=== PATIENT | male | born 1940 | race Hispanic/Latino ===

== ENCOUNTER 2019-11-26 10:05 | Outpatient (CLI) | payer MEDICARE, SELFPAY ==
--- NOTE | ~2019-11-26 | US_ITS ---
EXAMINATION: US carotid duplex BI DATE: 11/26/2019 10:52 INDICATION: Bilateral carotid stenosis. TECHNIQUE: Grayscale, color Doppler, and pulsed Doppler images of the cervical carotid arteries were obtained. The degree of vessel stenosis is placed in one of the following categories: normal, <50%, 5 0-69%, >=70% but less than near-occlusion, near-occlusion, or total occlusion. Note that percent sten osis relative to normal distal artery lumen diameter is indirectly measured from velocity measurement s as described by Zack, et al. Radiology 2003; 229:340-346. COMPARISON: Ultrasound 01/27/2018 FINDINGS: RIGHT: The right common carotid artery (CCA) peak systolic velocity (PSV) is 123 cm/s. The right internal ca rotid artery (ICA) PSV is 167 cm/s. The right ICA end-diastolic velocity (EDV) is 33 cm/s. The right ICA/CCA PSV ratio is 1.4. Grayscale and color Doppler images yield an estimate of >=50% diameter redu ction from plaque in the ICA. There is antegrade flow in the right vertebral artery. LEFT: The left CCA PSV is 146 cm/s. The left ICA PSV is 188 cm/s. The left ICA EDV is 40 cm/s. The left ICA /CCA PSV ratio is 1.3. Grayscale and color Doppler images yield an estimate of >=50% diameter reducti on from plaque in the ICA. There is antegrade flow in the left vertebral artery. IMPRESSION: 1. 50-69% stenosis in the right internal carotid artery. 2. 50-69% stenosis in the left internal carotid artery. Reviewed, dictated and finalized at location A.
== END 2019-11-26 10:06 | disposition home or self-care (01) ==
PROVIDERS: PCP Internal Medicine; Visit Provider Internal Medicine Cardiovascular Disease
DX: I65.23 Occlusion and stenosis of bilateral carotid arteries (principal)
CPT/HCPCS: 93880

== ENCOUNTER 2020-04-09 14:11 | Inpatient (IN) | payer MEDICARE, SELFPAY ==
[2020-04-09] VITALS (18 sets, daily range): BP systolic 72–157; BP diastolic 48–71; PULSE 98–133; RESP 25–36; TEMP 36.6–38; O2SAT 92–100; BMI 24.8
--- NOTE | ~2020-04-09 | XR_ITS ---
EXAMINATION: XR abdomen NG/feed tube insert INDICATION: OG tube placement TECHNIQUE: Portable AP KUB-NG at 0040 hours COMPARISON: None available FINDINGS: A orogastric tube is in the stomach. The bowel gas pattern is nonspecific. There are diffus e airspace opacities of the visualized lung bases. IMPRESSION: 1. Orogastric tube in the stomach. Reviewed, dictated and finalized at location A.
--- NOTE | ~2020-04-09 | XR_ITS ---
EXAMINATION: XR chest 1V portable INDICATION: COVID 19 pneumonia TECHNIQUE: Portable AP chest at 0538 hours COMPARISON: 04/11/2020 FINDINGS: The endotracheal tube ends approximately 5.6 cm above the sheba. The nasogastric tube is i n the stomach. A right internal jugular central venous catheter ends with its tip in the superior lilly a cava. Diffuse interstitial and airspace opacities persist with slight interval improvement. Median sternotomy wires the heart size is normal. There is no pleural effusion or pneumothorax. IMPRESSION: 1. Diffuse lung disease with slight improvement, consistent with pneumonia and/or pulmonary edema and /or acute respiratory distress syndrome (ARDS). Reviewed, dictated and finalized at location A. IMPRESSION: 1. Diffuse lung disease with slight improvement, consistent with pneumonia and/ or pulmonary edema and/or acute respiratory distress syndrome (ARDS).
--- NOTE | ~2020-04-09 | XR_ITS ---
EXAMINATION: XR chest 1V portable INDICATION: COVID 19 pneumonia TECHNIQUE: Portable AP chest at 0543 hours COMPARISON: 04/14/2020 FINDINGS: The endotracheal tube ends approximately 4.7 cm above the sheba. The nasogastric tube is f ollowed as far as the stomach. Its tip is beyond the inferior margin of the radiograph. A right inter nal jugular central venous catheter ends with its tip in the proximal superior vena cava. Diffuse int erstitial and airspace opacities persist without significant change. There is no pleural effusion or pneumothorax. Median sternotomy wires and mediastinal surgical clips are seen, likely from prior [place]uis[place] nary artery bypass grafting. The heart size is normal. IMPRESSION: 1. Diffuse lung disease without significant change, consistent with pneumonia and/or pulmonary edema and/or acute respiratory distress syndrome (ARDS). Reviewed, dictated and finalized at location A. IMPRESSION: 1. Diffuse lung disease without significant change, consistent with pneumonia a nd/or pulmonary edema and/or acute respiratory distress syndrome (ARDS).
--- NOTE | ~2020-04-09 | XR_ITS ---
EXAMINATION: XR chest 1V portable INDICATION: COVID 19 pneumonia TECHNIQUE: Portable AP chest at 0514 hours COMPARISON: 04/12/2020 FINDINGS: The endotracheal tube ends approximately 4.8 cm above the sheba. The nasogastric tube is f ollowed as far as the stomach. Its tip is beyond the inferior margin of the radiograph. A right inter nal jugular catheter ends in the proximal superior vena cava. Diffuse interstitial and airspace opaci ties persist but have slightly improved, particularly in the mid and upper lung zones. There is no pl eural effusion or pneumothorax. The heart size is normal. Median sternotomy wires and mediastinal holden gical clips are seen, likely from prior coronary artery bypass grafting. IMPRESSION: 1. Diffuse lung disease with slight improvement, consistent with pneumonia and/or pulmonary edema and /or acute respiratory distress syndrome (ARDS). Reviewed, dictated and finalized at location A. IMPRESSION: 1. Diffuse lung disease with slight improvement, consistent with pneumonia and/ or pulmonary edema and/or acute respiratory distress syndrome (ARDS).
--- NOTE | ~2020-04-09 | XR_ITS ---
EXAMINATION: XR chest 1V portable INDICATION: COVID 19 PNEUMONIA TECHNIQUE: Portable AP chest at 0537 hours COMPARISON: 04/10/2020 FINDINGS: The endotracheal tube ends approximately 5.0 cm above the sheba. The nasogastric tube is i n the stomach. A right internal jugular central venous catheter ends with its tip in the proximal sup erior vena cava. Diffuse interstitial and airspace opacities persist with slight improvement in the u pper lung zones and perihilar regions. The cardiomediastinal silhouette is normal. Median sternotomy wires and mediastinal surgical clips are seen, likely from prior coronary artery bypass grafting. IMPRESSION: 1. Diffuse lung disease with slight improvement in the upper lung zones and perihilar regions, consis tent with pneumonia and/or pulmonary edema and/or acute respiratory distress syndrome (ARDS). Reviewed, dictated and finalized at location A. IMPRESSION: 1. Diffuse lung disease with slight improvement in the upper lung zones and per ihilar regions, consistent with pneumonia and/or pulmonary edema and/or acute r espiratory distress syndrome (ARDS).
--- NOTE | ~2020-04-09 | XR_ITS ---
XR chest 1V portable 04/09/2020 14:49 Indication: Shortness of breath. Covid Procedure: AP portable chest Comparison: 03/07/2018 Findings: Status post median sternotomy for CABG. Heart size normal. There is bilateral airspace dise ase peripherally, consistent with pneumonia. No pleural effusion or pneumothorax. Impression: 1: Interval development of extensive bilateral airspace disease, compatible with pneumonia. Reviewed, dictated and finalized at location A. Impression: 1: Interval development of extensive bilateral airspace disease, compatible wit h pneumonia.
--- NOTE | ~2020-04-09 | XR_ITS ---
EXAMINATION: XR chest 1V portable INDICATION: COVID 19 pneumonia TECHNIQUE: Portable AP chest at 0550 hours COMPARISON: 04/13/2020 FINDINGS: The endotracheal tube ends approximately 4.7 cm above the sheba. The nasogastric tube is f ollowed as far as the stomach. Its tip is beyond the inferior margin of the radiograph. A right inter nal jugular central venous catheter ends with its tip in the proximal superior vena cava. Diffuse int erstitial and airspace opacities persist without significant change. There is no pleural effusion or pneumothorax. The cardiomediastinal silhouette is stable. Median sternotomy wires and mediastinal holden gical clips are seen, likely from prior coronary artery bypass grafting. IMPRESSION: 1. Stable diffuse lung disease, consistent with pneumonia and/or pulmonary edema and/or acute respira tory distress syndrome (ARDS). Reviewed, dictated and finalized at location A. IMPRESSION: 1. Stable diffuse lung disease, consistent with pneumonia and/or pulmonary francis a and/or acute respiratory distress syndrome (ARDS).
--- NOTE | ~2020-04-09 | XR_ITS ---
EXAMINATION: XR chest ET placement INDICATION: Endotracheal tube insertion TECHNIQUE: Portable AP chest at 0039 hours COMPARISON: 04/09/2020 FINDINGS: There are diffuse interstitial and airspace opacities with interval worsening in the perihi lar regions, upper lung zones, and right lower lung zone. There is no pleural effusion or pneumothora x. The cardiomediastinal silhouette is stable. The endotracheal tube is 3.7 cm above the sheba. The nasogastric tube is followed as far as the stomach. Its tip is beyond the inferior margin of the radi ograph. A right internal jugular central venous catheter has been inserted which ends with its tip in the proximal superior vena cava. IMPRESSION: 1. Endotracheal and enteric tube insertions and right internal jugular central venous catheter insert ion, in adequate positions. 2. Diffuse lung disease with interval worsening in the upper lung zones, perihilar regions, and right lower lung zone, consistent with pneumonia and/or pulmonary edema and/or acute respiratory distress syndrome (ARDS). Reviewed, dictated and finalized at location A. IMPRESSION: 1. Endotracheal and enteric tube insertions and right internal jugular central venous catheter insertion, in adequate positions. 2. Diffuse lung disease with interval worsening in the upper lung zones, perihi lar regions, and right lower lung zone, consistent with pneumonia and/or pulmon andres edema and/or acute respiratory distress syndrome (ARDS).
[2020-04-09 14:56] LABS: Basophils Percent Auto 0.1 % (0.2-1.2); Immature Granulocyte Absolute 0.14 K/mm3 (0.00-0.031); Lymphocytes Absolute Auto 0.41 K/mm3 (0.9-3.2); Mean Corpuscular HGB Conc 32.3 g/dl (32-36); Mean Corpuscular Volume 89.9 fl (80-100); Mean Platelet Volume 12.8 fl (7.4-10.4); Monocytes Absolute Auto 0.9 K/mm3 (0.1-0.6); Monocytes Percent Auto 6.2 % (2.6-8.5); Neutrophils Absolute Auto 12.2 K/mm3 (1.3-6.7); Neutrophils Percent Auto 89.7 % (45.5-73.1); Nucleated Red Blood Cells Absolute Auto 0.2 K/mm3 (0.0-0.012); Nucleated Red Blood Cells Perc 1.5 % (0.0-0.2); Platelet Count Result 311 k/mm3 (150-375); Red Blood Count 2.17 M/mm3 (4.6-6.20); Red Cell Distribution Width 15.1 % (11.5-14.5); White Blood Count 13.6 K/mm3 (4.5-10.0)
[2020-04-09] MEDS: SODIUM CHLORIDE 0.9% IV 1,000 ML 999 ML IV CONT (14:57)
[2020-04-09 15:02] LABS: Hematocrit 19.5 % (42.0-52.0); Hemoglobin 6.3 g/dL (14.0-18.0)
[2020-04-09 15:09] LABS: INR 1.1
[2020-04-09 15:12] LABS: D Dimer 0.64 ug/mL (<0.48)
[2020-04-09 15:16] LABS: Lactic Acid Reflex 8.8 mmol/L (0.7-2.1)
[2020-04-09 15:21] LABS: Alanine Aminotransferase 42 U/L (4-50); Albumin Level 3.4 g/dL (3.5-5.1); Alkaline Phosphatase 97 U/L (38-126); Anion Gap 18 mmol/L (8-16); Aspartate Amino Transferase 56 U/L (17-59); Bilirubin,Total 0.6 mg/dL (0.2-1.3); Blood Urea Nitrogen 18 mg/dL (9-20); Calcium 7.8 mg/dL (8.4-10.2); Carbon Dioxide 16 mmol/L (22-30); Chloride 92 mmol/L (98-107); Estimated CRCL calculation 40 ml/min; Estimated Glomerular Filt Rate 58; Glucose 293 mg/dL (75-110); Lactate Dehydrogenase 700 U/L (313-618); Potassium 4.9 mmol/L (3.4-5.0); Sodium 126 mmol/L (137-145)
[2020-04-09 15:22] LABS: NT Pro B Type Natriuretic Pept 8460 PG/ML (5-100)
[2020-04-09] MEDS: DEXAMETHASONE SOD PHOS INJ 4 MG/ML VIAL 8 MG (15:26)
[2020-04-09 15:33] LABS: CRP 16.6 mg/dL (<1.0)
--- NOTE | 2020-04-09 15:47 | PC.NURSE ---
fluids reduced to 100ml/hr per verbal order
[2020-04-09] MEDS: PANTOPRAZOLE SODIUM IV 40 MG VIAL IV PUSH ×2 (15:50→20:30)
--- NOTE | 2020-04-09 16:24 | ED.GENADULT ---
HPI - General Adult General Chief complaint: Weakness Stated complaint: COVID + PALE,WEAK Time Seen by Provider: 04/09/20 14:32 Source: patient, family and custom furrier (daughter) Mode of arrival: ambulatory Limitations: language barrier History of Present Illness HPI narrative: 79-year-old with a history of hypertension diabetes was brought in by daughter with complaints of marked weakness for past few days. Patient's daughter mentions that he was tested positive for COVID 12 days ago but for the past few days patient has not been eating or drinking and this morning he was found to be extremely weak and he was trembling at his legs. Patient however denies any fever or chills has occasional cough denies any shortness of breath upon arrival complaints of upper abdominal pain. He denies any chest pain. Onset (ago): week(s) (1) Location: abdomen Severity: moderate Associated symptoms: chest pain, cough and shortness of breath Related Data Home Medications Medication Instructions Recorded Confirmed allopurinol 100 mg tablet 100 mg PO DAILY 06/15/19 06/16/19 nitroglycerin 0.4 mg sublingual 0.4 mg SUBLINGUAL Q5M PRN 06/15/19 06/16/19 tablet blood sugar diagnostic #10 each 09/01/19 colchicine 0.6 mg tablet 0.6 mg PO BID 09/01/19 lancets #50 each 09/01/19 pantoprazole 40 mg tablet,delayed 40 mg PO QAM 09/01/19 release ramipril 10 mg capsule 10 mg PO DAILY 09/01/19 Allergies Allergy/AdvReac Type Severity Reaction Status Date / Time No Known Allergies Allergy Verified 04/09/20 14:56 Review of Systems Review of Systems: All systems reviewed & are unremarkable except as noted in HPI and below Constitutional: Constitutional: Reports no additional constitutional complaints Eyes: Eyes: Reports no additional eye complaints ENT: Reports as per HPI Cardiovascular: Cardiovascular: Reports as per HPI Respiratory: Respiratory: Reports no additional respiratory complaints Gastrointestinal: Gastrointestinal: Reports abdominal pain Genitourinary: Genitourinary: Reports as per HPI Musculoskeletal: Musculoskeletal: Reports no additional musculoskeletal complaints Integumentary/Breasts: Skin/Breast: Reports system reviewed and no additional complaints, except as docu PMFSH Past Medical History Medical History Coronary atherosclerosis of [place] coronary artery Social History Social History Smoking status: Former smoker Smoking end date: 08/11/14 Alcohol intake: never Gender identity (if verbalized by the patient): Male Exam Narrative: Exam Narrative: GENERAL: Well-appearing, well-nourished, anxious in no distress . HEAD: Normocephalic, atraumatic. EYES: PERRLA and EOMI. ENT: Nares clear, no rhinorrhea or epistaxis. Mucous membranes moist. NECK: Supple. CHEST: Clear to auscultation. No respiratory distress. HEART: Tachycardic . No murmur heard. ABDOMEN: Soft, nontender, nondistended, normal active bowel sounds. EXTREMITIES: Normal range of motion. No edema. SKIN: Warm, dry, no rash. NEURO: No focal deficits. Alert and oriented x3. PSYCH: Normal mood and affect. GI: Other: Heme-negative stool Course Course Emergency Course: With a recent history of COVID I like to do CBC chemistry chest x-ray start him on IV fluids gently. Vital Signs Vital signs: Vital Signs Temperature 38.0 C H 04/09/20 14:25 Pulse Rate 129 H 04/09/20 14:25 Respiratory Rate 35 H 04/09/20 14:25 Blood Pressure 157/55 H 04/09/20 14:25 Pulse Oximetry 92 04/09/20 14:25 Temperature 37.7 C H 04/09/20 15:50 Pulse Rate 133 H 04/09/20 15:47 Respiratory Rate 35 H 04/09/20 14:25 Blood Pressure 114/71 04/09/20 15:47 Pulse Oximetry 92 04/09/20 15:47 Medical Decision Making MDM Narrative Medical decision making narrative: With a given history of [place] COVID the chest x-ray was consistent with
--- NOTE | 2020-04-09 17:00 | ECG_ITS ---
Measurements Intervals [place] Rate: 113 P: 27 [place]: 165 QRS: -16 QRSD: 91 T: 102 QT: 342 QTc: 471 Interpretive Statements SINUS TACHYCARDIA ST-T WAVE ABNORMALITY IN ANTEROLAT/HIGH LAT LEADS- CONSIDER ISCHEMIA ABNORMAL ECG Electronically Signed On 04-10-2020 7:08:41 CDT by Corky Arevalo D.O.
[2020-04-09] MEDS: FUROSEMIDE INJ 40 MG/4 ML VIAL IV PUSH (17:29)
[2020-04-09 17:54] LABS: Reflex Lactic Acid Yes or No Add Lactic
--- NOTE | 2020-04-09 18:15 | ADMGEN ---
This patient, Luis Rose, was admitted to Intensive Care Unit-3. Patient/family oriented to hospital policies and general routines including ID bracelet, bed and alarms, visiting hours, pain management, procedures, bathroom and other care routines, personal items, smoking policy, room service/diet, and visiting hours. Valuables list has been completed. Information on how to activate the Rapid Response Team has been discussed. Patient/Family are encouraged to report perceived risks to care and to ask questions if they do not understand what they are told or what they should do.
[2020-04-09 18:56] LABS: Lactic Acid 5.7 mmol/L (0.7-2.1)
--- NOTE | 2020-04-09 19:31 | PM.IMHP ---
H&P: HPI History of Present Illness Date/Time: 04/09/20 19:31 Chief complaint: Pneumonia, GI bleed, Anemia Narrative: This is an 79 year old diabetic male with known history of CAD+ s/p CABG, HTN, and previous GI bleed presented to the hospital with a complaint of increased fatigue and generalized weakness over several days. The patient also complains of several days of increased shortness of breath and nonproductive coughing. He apparently tested positive for COVID-19 twelve days ago. His daughter had reported decreased PO intake today. The patient denies any chest pain, palpitations, abdominal pain, dysuria, hematuria, diarrhea, black stools or rectal bleeding. The patient was found to be in acute respiratory failure and severely septic in the ER tonight with a fever, tachycardia, tachypnea, WBC of 13,600 and an elevated lactic acid level of 5.7. His H/H came back at 6.3/19.5. The patient denies any anticoagulant use. He is currently receiving a pRBC transfusion. He was also started on AIRVO high flow oxygen at 60L/min w/ FiO2 of 60%. [facility] has been consulted. The patient was treated with 1 liter of NS IV bolus in the ER, given Lasix 40 mg IV, and IV antibiotics. Dexamethasone 8 mg IV was Review of Systems Review of Systems: All systems reviewed & are unremarkable except as noted in HPI and below PMFSH Past Medical History Medical History CAD (coronary artery disease) Coronary atherosclerosis of [place] coronary artery Diabetes mellitus HTN (hypertension) with goal to be determined Hyperlipidemia Iron deficiency anemia Surgical History Surgical History Hx of CABG Social History Social History Smoking status: Former smoker Smoking end date: 08/11/14 Alcohol intake: never Substance use: never Gender identity (if verbalized by the patient): Male Spiritual care concerns: No Meds Home Medications and Allergies Home Medications Medication Instructions Recorded Confirmed Type allopurinol 100 mg tablet 100 mg PO DAILY 06/15/19 04/09/20 History hydralazine 50 mg tablet 50 mg PO TID #270 tablet 06/17/19 04/09/20 Rx metformin 500 mg tablet 500 mg PO BID #180 tablet 06/17/19 04/09/20 Rx metoprolol succinate 50 mg 50 mg PO DAILY #90 tablet 06/17/19 04/09/20 Rx tablet,extended release 24 hr blood sugar diagnostic #10 each 09/01/19 04/09/20 History colchicine 0.6 mg tablet 0.6 mg PO BID 09/01/19 04/09/20 History lancets #50 each 09/01/19 04/09/20 History glimepiride 1 mg tablet 1 mg PO QAM #90 tablet 10/05/19 04/09/20 Rx atorvastatin 20 mg tablet 20 mg PO DAILY #90 tablet 02/23/20 04/09/20 Rx furosemide 20 mg tablet 20 mg PO QAM #90 tablet 02/23/20 04/09/20 Rx Allergies Allergy/AdvReac Type Severity Reaction Status Date / Time No Known Allergies Allergy Verified 04/09/20 14:56 Vital Signs Vital Signs - 24 hr 04/09/20 14:25 04/09/20 15:47 04/09/20 15:50 Temperature 38.0 C H 37.7 C H Pulse Rate 129 H 133 H Respiratory Rate 35 H Blood Pressure 157/55 H 114/71 Pulse Oximetry 92 92 04/09/20 17:08 04/09/20 18:07 04/09/20 18:50 Temperature Pulse Rate 114 H 126 H 105 H Respiratory Rate 36 H 32 H 30 H Blood Pressure 109/50 L 118/64 72/59 L Pulse Oximetry 100 94 100 04/09/20 18:55 04/09/20 19:14 Temperature 37.7 C H 36.7 C Pulse Rate 103 H 119 H Respiratory Rate 28 H 30 H Blood Pressure 79/48 L 119/53 L Pulse Oximetry 100 98 Exam Const: General: cooperative, no acute distress, alert, awake, ill appearing, tired appearing, uncomfortable and other (Diaphoretic++ ) Nutritional Appearance: well nourished Orientation/consciousness: patient oriented x3 HENMT: Head: normal to inspection General nose exam: Normal external nose present Face and sinus: normal facial exam Mouth: Yes oropharynx normal and Yes othe
[2020-04-09 20:08] LABS: Alveolar/Arterial O2 Gradient 321.2 mmHg; Fractional Inspired Oxygen 60 %; Oxygen Content ABG 9.9 %vol (16.0-22.0); Oxygen Saturation ABG 95.7 % (95.0-100.0); Oxyhemoglobin 92.6 % THb (90.0-100.0); PCO2 ABG 25.6 mmHg (35.0-45.0); PO2 ABG 78.4 mmHg (80.0-100.0); PO2 FiO2 Ratio Arterial Blood 1.31 %; pH ABG 7.386 (7.350-7.450)
[2020-04-09 20:10] LABS: Modified Allen's Test Pass; Site Drawn RIGHT RADIAL; Total Hemoglobin 7.5 g/dL (12.0-18.0)
[2020-04-09 20:11] LABS: Device HIGH FLOW THERAPY
[2020-04-09 21:09] LABS: Beta-Hydroxybutyrate/Acetoacetate 0.35 mmol/L (0.02-0.27)
[2020-04-09] MEDS: INSULIN ASPART (*BKC) 100 UNITS/ML SUB-Q (23:17)
--- NOTE | 2020-04-09 23:40 | PC.NURSE ---
Dr. Villegas notified of patient increase work of breathing after BM. 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 Patient currently on 60L 93% with 100%NRB. Patient is agreeable of intubation and central line placement. Dr. Villegas at bedside evaluating patient.
[2020-04-10] VITALS (55 sets, daily range): BP systolic 70–163; BP diastolic 46–77; PULSE 12–122; RESP 14–27; TEMP 35.8–36.9; O2SAT 92–100; BMI 25.9
[2020-04-10] MEDS: RAPID SEQUENCE INTUBATION KIT 1 EACH
[2020-04-10] MEDS: FUROSEMIDE INJ 40 MG/4 ML VIAL IV PUSH (00:28)
[2020-04-10 00:33] LABS: Glucose Point of Care 326 (65-105)
--- NOTE | 2020-04-10 00:47 | WPDPROCEDUR ---
Procedures Intubation Intubation Date: 04/10/20 Intubation Time: 00:09 A pre-procedural Time-Out was completed immediately before starting the procedure and confirmed: Patient Identification, Site, Procedure, Patient Position and the Availability of Requisite Equipment: Yes Sedative: etomidate Mg given: 15 Paralytic: rocuronium Mg given: 30 Laryngoscope: fiber optic video scope ET tube size: 8 Tube secured depth (cm): 26 Tube secured location: teeth Tube placement confirmation: visualized tube passing through cords, equal breath sounds bilaterally, no breath sounds over epigastrium and confirmation by capnometry Patient tolerated procedure: well Intubation complications: none Additional comments: Date of service was 04/10/2020 at 00:10 hrs.
--- NOTE | 2020-04-10 00:48 | P.PCNBED_ITS ---
Procedures Central Line Placement Right IJ: Central Line Date: 04/10/20 Central Line Time: 00:25 Discussed w/ the patient/family/POA,the placement of a central venous catheter, including its clinical necessity/indication & associated potential risks, benifits and alternatives.: Yes Time Out Performed: Yes Patient Position: supine Patient placed on monitor/pulse ox: Yes Provider Prep: mask, sterile gown, sterile gloves, Max. sterile barrier precautions, cap and hand hygiene with conventional soap/water or alcohol based hand rub Central line prep: Povidone-Iodine 1% Central line lumen inserted: triple Amharic: 7 Length (cm): 17 Depth of Insertion (cm): 16 Post procedure: sutured in place, good blood return, all ports aspirated, flushed, capped, tegaderm, hemostatic disc, antimicrobial disc and aseptic technique maintained throughout procedure Post procedure x-ray: tip of catheter in good position and no pneumothorax seen Patient tolerated procedure: well Complications: none Additional comments: Date of service was 04/10/2020 at 00:25 hrs.
[2020-04-10 01:03] LABS: Hematocrit 30.1 % (42.0-52.0); Hemoglobin 10.2 g/dL (14.0-18.0)
[2020-04-10 01:35] LABS: Alveolar/Arterial O2 Gradient 533.6 mmHg; Base Excess ABG -5.9 mEq/l (+/-2.0); Carboxyhemoglobin 0.3 % THb (0-2.0); Fractional Inspired Oxygen 100 %; HCO3 ABG 22.1 mEq/l (22.0-26.0); Methemoglobin ABG 0.5 %THb (0-1.5); Oxygen Content ABG 15.9 %vol (16.0-22.0); Oxygen Saturation ABG 97.8 % (95.0-100.0); Oxyhemoglobin 96.2 % THb (90.0-100.0); PCO2 ABG 54.5 mmHg (35.0-45.0); PO2 ABG 124.9 mmHg (80.0-100.0); PO2 FiO2 Ratio Arterial Blood 1.25 %; Total Hemoglobin 11.6 g/dL (12.0-18.0)
[2020-04-10 01:37] LABS: Device VENTILATOR; Modified Allen's Test Pass; Site Drawn RIGHT RADIAL; pH ABG 7.225 (7.350-7.450)
[2020-04-10 01:38] LABS: Arterial Blood Gas PEEP 7 cmH2O; Arterial Blood Gas Pressure Support 0 cmH2O; Arterial Blood Gas Tidal Volume 450 ml; Arterial Blood Gas Vent Mode CMV; Arterial Blood Gas Ventilator rate 14 /MIN
--- NOTE | 2020-04-10 02:30 | PC.NURSE ---
Dr. Villegas notified of low blood pressure. Order for levophed given. Check bmp and lactic acid.
[2020-04-10 02:37] LABS: Lactic Acid Reflex 1.6 mmol/L (0.7-2.1)
[2020-04-10 02:38] LABS: Anion Gap 7 mmol/L (8-16); Blood Urea Nitrogen 27 mg/dL (9-20); Carbon Dioxide 25 mmol/L (22-30); Chloride 94 mmol/L (98-107); Estimated CRCL calculation 32 ml/min; Estimated Glomerular Filt Rate 45; Glucose 349 mg/dL (75-110); Potassium 4.7 mmol/L (3.4-5.0); Sodium 126 mmol/L (137-145)
[2020-04-10] MEDS: NOREPINEPHRINE 8 MG/D5W 250 ML 8 MG/250 ML BAG 9.4 MG IV CONT ×2 (02:41→20:07)
--- NOTE | 2020-04-10 02:45 | PC.NURSE ---
Dr. Villegas notified of lab results. Get ABG at 0330. Call with results. Give 4 units novolog for elevated glucose.
[2020-04-10] MEDS: INSULIN ASPART (*BKC) 100 UNITS/ML SUB-Q ×4 (02:56→17:35)
[2020-04-10 03:57] LABS: Base Excess ABG -4.1 mEq/l (+/-2.0); Carboxyhemoglobin 0.2 % THb (0-2.0); Fractional Inspired Oxygen 50 %; HCO3 ABG 21.1 mEq/l (22.0-26.0); Methemoglobin ABG 0.2 %THb (0-1.5); Oxygen Content ABG 14.3 %vol (16.0-22.0); Oxygen Saturation ABG 95.5 % (95.0-100.0); Oxyhemoglobin 93.8 % THb (90.0-100.0); PCO2 ABG 38.8 mmHg (35.0-45.0); PO2 ABG 80.9 mmHg (80.0-100.0); PO2 FiO2 Ratio Arterial Blood 1.62 %; Reduced Hemoglobin 5.8 %THb (0-5.0); Total Hemoglobin 10.8 g/dL (12.0-18.0); pH ABG 7.353 (7.350-7.450)
[2020-04-10 03:58] LABS: Arterial Blood Gas Vent Mode CMV; Arterial Blood Gas Ventilator rate 20 /MIN; Device VENTILATOR; Modified Allen's Test Pass; Site Drawn RIGHT RADIAL
[2020-04-10 03:59] LABS: Arterial Blood Gas PEEP 7 cmH2O; Arterial Blood Gas Pressure Support 0 cmH2O; Arterial Blood Gas Tidal Volume 450 ml
[2020-04-10 05:13] LABS: Basophils Percent Auto 0.1 % (0.2-1.2); Hematocrit 29.1 % (42.0-52.0); Hemoglobin 9.8 g/dL (14.0-18.0); Immature Granulocyte Absolute 0.26 K/mm3 (0.00-0.031); Immature Granulocyte Percent A 1.6 % (0-0.5); Lymphocytes Absolute Auto 0.43 K/mm3 (0.9-3.2); Lymphocytes Percent Auto 2.7 % (18.3-44.2); Mean Corpuscular HGB Conc 33.7 g/dl (32-36); Mean Corpuscular Hemoglobin 29.1 pg (26-34); Mean Corpuscular Volume 86.4 fl (80-100); Mean Platelet Volume 12.3 fl (7.4-10.4); Monocytes Absolute Auto 0.9 K/mm3 (0.1-0.6); Monocytes Percent Auto 5.6 % (2.6-8.5); Neutrophils Absolute Auto 14.4 K/mm3 (1.3-6.7); Nucleated Red Blood Cells Absolute Auto 0.2 K/mm3 (0.0-0.012); Nucleated Red Blood Cells Perc 1.2 % (0.0-0.2); Platelet Count Result 308 k/mm3 (150-375); Red Blood Count 3.37 M/mm3 (4.6-6.20); Red Cell Distribution Width 14.4 % (11.5-14.5)
[2020-04-10 05:28] LABS: Anion Gap 7 mmol/L (8-16); Blood Urea Nitrogen 29 mg/dL (9-20); Calcium 7.2 mg/dL (8.4-10.2); Carbon Dioxide 24 mmol/L (22-30); Chloride 94 mmol/L (98-107); Estimated CRCL calculation 30 ml/min; Estimated Glomerular Filt Rate 42; Glucose 347 mg/dL (75-110); Potassium 4.6 mmol/L (3.4-5.0); Sodium 125 mmol/L (137-145)
[2020-04-10] MEDS: CENTRAL LINE FLUSH 10 ML IV PUSH ×3 (05:36→20:10)
[2020-04-10] MEDS: PANTOPRAZOLE SODIUM IV 40 MG VIAL IV PUSH ×2 (08:02→17:34)
[2020-04-10] MEDS: INSULIN DETEMIR 100 UNITS/ML SUB-Q ×2 (10:49→20:09)
[2020-04-10 12:07] LABS: Glucose Point of Care 321 (65-105)
--- NOTE | 2020-04-10 14:07 | WPDCNINT ---
Assessment and Plan Assessment and plan (1) Acute respiratory failure: Qualifiers: Respiratory failure complication: unspecified whether with hypoxia or hypercapnia Qualified Code(s): J96.00 - Acute respiratory failure, unspecified whether with hypoxia or hypercapnia Code(s): J96.00 - Acute respiratory failure, unspecified whether with hypoxia or hypercapnia Status: Acute Assessment and Plan: patient presented with dyspnea, positive COVID-19, bilateral diffuse infiltrates on the chest x-ray - intubated on 04/09/2020 - patient on low tidal volume strategy, peep of 7, 45% FiO2 on CMV mode of ventilation - continue bronchodilators, - given his fevers, elevated WBC count, hypotension started patient on cefepime and azithromycin - continue fentanyl Versed infusion for sedation, daily sedation vacation (2) COVID-19: Code(s): U07.1 - COVID-19 Status: Acute Assessment and Plan: patient positive for COVID-19, 12 days prior to admission - will swab patient for SARS-CoV-2 PCR - started patient on dexamethasone - he is out of the window for Remdesivir - patient may benefit from convalescent plasma - continue droplet, airborne, contact isolation (3) Septic shock: Code(s): A41.9 - Sepsis, unspecified organism; R65.21 - Severe sepsis with septic shock Status: Acute Assessment and Plan: patient with septic shock, hypotensive, - received adequate IV fluids - started on Levophed, maintain mean arterial pressures greater than 65 mmHg - monitor urine output - lactic acid was 5.7 at admission, 1.6 this morning (4) Anemia: Qualifiers: Anemia type: due to chronic kidney disease Chronic kidney disease stage: unspecified stage Qualified Code(s): N18.9 - Chronic kidney disease, unspecified; D63.1 - Anemia in chronic kidney disease Code(s): D64.9 - Anemia, unspecified Status: Acute Assessment and Plan: patient presented with hemoglobin of 6.3 on admission - received 2 units of packed RBCs, repeat hemoglobin stable - history of GI bleed, stool for occult blood been ordered - continue PPI IV q.12 hours - GI has been consulted and await evaluation and recommendations (5) Diabetes mellitus: Qualifiers: Diabetes mellitus type: type 2 Diabetes mellitus [facility] insulin use: without termite helper use Diabetes mellitus complication status: without complication Qualified Code(s): E11.9 - Type 2 diabetes mellitus without complications Code(s): E11.9 - Type 2 diabetes mellitus without complications Status: Chronic Assessment and Plan: patient hyperglycemic, started on Accu-Cheks and sliding scale insulin - also added Levemir - continue monitor blood sugars closely (6) DVT prophylaxis: Code(s): Z29.9 - Encounter for prophylactic measures, unspecified Status: Acute Assessment and Plan: SCDs, no chemoprophylaxis given severe anemia and possible GI bleed Additional Plan will discuss with family code status: Full code critical care time spent: 47 minutes Due to a high probability of clinically significant, life threatening deterioration, the patient required my highest level of preparedness to intervene emergently and I personally spent this critical care time directly and personally managing the patient. This critical care time included obtaining a history; examining the patient; pulse oximetry; ordering and review of studies; arranging urgent treatment with development of a management plan; evaluation of patient's response to treatment; frequent reassessment; and discussions with other providers. It was exclusive of separately billable procedures and treating other patients and teaching time. Please see Assessment and Plan section and the rest of the note for further information on patient assessment and treatment Supervisor [employer] Consult Note Consult date: 04/10/20 Time Seen: 06:56 Reason for consul
--- NOTE | 2020-04-10 16:25 | WPDGICN ---
Assessment and Plan Assessment and plan (1) COVID-19: Code(s): U07.1 - COVID-19 Status: Acute (2) Anemia: Qualifiers: Anemia type: due to chronic kidney disease Chronic kidney disease stage: unspecified stage Qualified Code(s): N18.9 - Chronic kidney disease, unspecified; D63.1 - Anemia in chronic kidney disease Code(s): D64.9 - Anemia, unspecified Status: Acute Assessment and Plan: Patient profile with profound anemia with hemoglobin 6.3 on presentation to the emergency room. This is improved significantly with transfusion currently hemoglobin 9.8. Dark Hemoccult-positive stools described emergency room suggestive of upper GI blood loss. Plan is to keep patient on proton pump inhibitor therapy given his adequate hemoglobin after transfusion in no evidence for continued ongoing bleeding will defer invasive testing such as EGD and treat empirically for ulcer disease. Given his positive COVID status the risk of transmission of virus is felt to be great. Will proceed with invasive testing only if he active bleeding decline hemoglobin her noted. Will follow with you during this hospital stay. (3) GI bleeding: Code(s): K92.2 - Gastrointestinal hemorrhage, unspecified Status: Acute (4) Acute respiratory failure: Qualifiers: Respiratory failure complication: unspecified whether with hypoxia or hypercapnia Qualified Code(s): J96.00 - Acute respiratory failure, unspecified whether with hypoxia or hypercapnia Code(s): J96.00 - Acute respiratory failure, unspecified whether with hypoxia or hypercapnia Status: Acute GI Consult Note Consult date/time: 04/10/20 16:25 HPI: Luis Samuel is a 79 year old male I am asked to see for GI bleeding. Patient known to have COVID pneumonia 12 days ago. Has an underlying history of coronary artery disease, diabetes, hypertension, hyperlipidemia. Underlying iron deficiency anemia. Patient has had fatigue and generalized weakness for several days. Because of decreased oral intake he was sent to the emergency room. In the emergency room was felt to be septic with tachycardia fever elevated WBC. His hemoglobin was noted to be lower. Stool Hemoccult was reported to be positive. Dark stools were described. Patient is unable to give any additional history he was intubated. Hemoglobin is re- improved to approximately 9.8 after transfusion is remains stable. Brown stool is reported by nursing staff today. Review of Systems Review of Systems: ROS unobtainable: Yes unobtainable due to endotracheal tube PMFSH Past Medical History Medical History CAD (coronary artery disease) Coronary atherosclerosis of [place] coronary artery Diabetes mellitus HTN (hypertension) with goal to be determined Hyperlipidemia Iron deficiency anemia Surgical History Surgical History Hx of CABG Social History Social History Smoking status: Former smoker Smoking end date: 08/11/14 Alcohol intake: never Substance use: never Gender identity (if verbalized by the patient): Male Spiritual care concerns: No Meds Home Medications and Allergies Home Medications Medication Instructions Recorded Confirmed Type allopurinol 100 mg tablet 100 mg PO DAILY 06/15/19 04/09/20 History hydralazine 50 mg tablet 50 mg PO TID #270 tablet 06/17/19 04/09/20 Rx metformin 500 mg tablet 500 mg PO BID #180 tablet 06/17/19 04/09/20 Rx metoprolol succinate 50 mg 50 mg PO DAILY #90 tablet 06/17/19 04/09/20 Rx tablet,extended release 24 hr blood sugar diagnostic #10 each 09/01/19 04/09/20 History colchicine 0.6 mg tablet 0.6 mg PO BID 09/01/19 04/09/20 History lancets #50 each 09/01/19 04/09/20 History glimepiride 1 mg tablet 1 mg PO QAM #90 tablet 10/05/19 04/09/20 Rx atorvastatin 20 mg tabl
[2020-04-10 17:55] LABS: Glucose Point of Care 282 (65-105)
[2020-04-10 20:28] LABS: SARS-CoV-2 RNA PCR Positive
[2020-04-11] VITALS (46 sets, daily range): BP systolic 100–131; BP diastolic 47–76; PULSE 59–97; RESP 16–20; TEMP 36.2–36.8; O2SAT 94–100
--- NOTE | 2020-04-11 | ECHO_ITS ---
Patient Info Name: Luis Samuel Age: 79 years : 1940 Gender: Male Ht: 65 in Wt: 162 lbs BSA: 1.85 m2 HR: 86 bpm BP: 129 / 69 mmHg Heart Rhythm: Sinus Rhythm Technical Quality: Good Exam Date: 04/11/2020 2:07 PM Exam Location: [facility] Pulmonary Patient Status: Inpatient Admit Date: 04/09/2020 Staff Ordering Physician: Ever Uribe MD Radio Tower Technician: Zackery Li RDCS Attending Provider: Perry Boyce MD Exam Type: CA echo doppler color flow Study Info Indications 486.0 - Pneumonia Complete two-dimensional, color flow and Doppler transthoracic echocardiogram is performed. Strain analysis performed. History/Risk Factors Elevated trops; Covid 19 positive, CAD s/p CABG, HTN, SOB, Acute respiratory failure, CKD. Summary 1. Complete two-dimensional, color flow and Doppler transthoracic echocardiogram is performed. 2. Left ventricular chamber dimension is mildly enlarged. 3. Left ventricular systolic function is normal, estimated at 55-60%. 4. There is moderately increased left ventricular wall thickness. 5. The left ventricular diastolic function is grade II diastolic dysfunction. 6. Global longitudinal strain is abnormal at -11 %. 7. Left atrial chamber dimension is moderately enlarged. 8. There is moderate aortic valve stenosis with a peak velocity of 228 cm/s, mean gradient of 11 mmHg, and aortic valve area of 1.1 cm2. 9. There is severe aortic valve calcification. 10. The mitral valve has calcified leaflets and calcified annulus. 11. There is moderate to severe mitral valve regurgitation. 12. There is mild tricuspid valve regurgitation. 13. Moderate pulmonary hypertension, estimated pulmonary arterial systolic pressure is 50 mmHg. 14. There is mild pulmonic regurgitation. Left Ventricle Left ventricular chamber dimension is mildly enlarged. Left ventricular systolic function is normal, estimated at 55-60%. There is moderately increased left ventricular wall thickness. The left ventricular diastolic function is grade II diastolic dysfunction. Global longitudinal strain is abnormal at -11 %. Right Ventricle Right ventricular chamber dimension is normal. Right ventricular systolic function is normal. Left Atria Left atrial chamber dimension is moderately enlarged. Right Atria Right atrial chamber dimension is normal. Atrial Septum Intact interatrial septum visualized by color flow imaging. Aortic Valve The aortic valve is trileaflet. There is moderate aortic valve stenosis with a peak velocity of 228 cm/s, mean gradient of 11 mmHg, and aortic valve area of 1.1 cm2. There is trace aortic valve regurgitation. There is severe aortic valve calcification. Pulmonic Valve The pulmonic valve is normal. There is no pulmonic valve stenosis. There is mild pulmonic regurgitation. Mitral Valve The mitral valve has calcified leaflets and calcified annulus. There is no mitral valve stenosis. There is moderate to severe mitral valve regurgitation. Tricuspid Valve The tricuspid valve leaflets are normal. There is no significant tricuspid valve stenosis. There is mild tricuspid valve regurgitation. Moderate pulmonary hypertension, estimated pulmonary arterial systolic pressure is 50 mmHg. Pericardium/Pleural The pericardium appears normal. There is no pericardial effusion. Inferior Vena Cava Normal inferior vena cava with <50% collapse upon inspiration consistent with elevated right atrial pressure, 10 mmHg.
[2020-04-11] MEDS: INSULIN ASPART (*BKC) 100 UNITS/ML SUB-Q ×4 (00:06→23:46)
[2020-04-11 00:11] LABS: Glucose Point of Care 285 (65-105)
[2020-04-11 04:24] LABS: Hematocrit 24.5 % (42.0-52.0); Hemoglobin 8.4 g/dL (14.0-18.0); Mean Corpuscular HGB Conc 34.3 g/dl (32-36); Mean Corpuscular Hemoglobin 29.5 pg (26-34); Mean Platelet Volume 11.7 fl (7.4-10.4); Platelet Count Result 266 k/mm3 (150-375); Red Blood Count 2.85 M/mm3 (4.6-6.20); Red Cell Distribution Width 14.4 % (11.5-14.5); White Blood Count 15.9 K/mm3 (4.5-10.0)
[2020-04-11 04:32] LABS: Lactic Acid Reflex 1.3 mmol/L (0.7-2.1)
[2020-04-11 04:36] LABS: Alveolar/Arterial O2 Gradient 102.9 mmHg; Base Excess ABG -3.5 mEq/l (+/-2.0); Carboxyhemoglobin 0.2 % THb (0-2.0); Device VENTILATOR; Fractional Inspired Oxygen 30 %; HCO3 ABG 21.7 mEq/l (22.0-26.0); Methemoglobin ABG 0.2 %THb (0-1.5); Modified Allen's Test Unable to perform; Oxygen Content ABG 12.3 %vol (16.0-22.0); Oxygen Saturation ABG 91.9 % (95.0-100.0); Oxyhemoglobin 88.6 % THb (90.0-100.0); PCO2 ABG 39.5 mmHg (35.0-45.0); PO2 ABG 64.6 mmHg (80.0-100.0); PO2 FiO2 Ratio Arterial Blood 2.15 %; Site Drawn RIGHT RADIAL; Total Hemoglobin 9.8 g/dL (12.0-18.0); pH ABG 7.357 (7.350-7.450)
[2020-04-11 04:37] LABS: Arterial Blood Gas PEEP 7 cmH2O; Arterial Blood Gas Tidal Volume 450 ml; Arterial Blood Gas Vent Mode CMV; Arterial Blood Gas Ventilator rate 17 /MIN
[2020-04-11 04:50] LABS: Alanine Aminotransferase 32 U/L (4-50); Albumin Level 2.7 g/dL (3.5-5.1); Alkaline Phosphatase 82 U/L (38-126); Anion Gap 7 mmol/L (8-16); Aspartate Amino Transferase 51 U/L (17-59); Bilirubin,Total 0.4 mg/dL (0.2-1.3); Blood Urea Nitrogen 39 mg/dL (9-20); Calcium 7.2 mg/dL (8.4-10.2); Carbon Dioxide 25 mmol/L (22-30); Chloride 95 mmol/L (98-107); Estimated CRCL calculation 28 ml/min; Estimated Glomerular Filt Rate 39; Glucose 258 mg/dL (75-110); Magnesium 2.4 mg/dL (1.6-2.3); Potassium 4.7 mmol/L (3.4-5.0); Sodium 127 mmol/L (137-145)
[2020-04-11] MEDS: CENTRAL LINE FLUSH 10 ML IV PUSH ×3 (04:57→19:51)
[2020-04-11 04:59] LABS: CRP 14.7 mg/dL (<1.0)
[2020-04-11] MEDS: PANTOPRAZOLE SODIUM IV 40 MG VIAL IV PUSH ×2 (08:04→17:47)
[2020-04-11] MEDS: INSULIN DETEMIR 100 UNITS/ML 10 UNITS SUB-Q ×2 (08:04→19:44)
--- NOTE | 2020-04-11 09:40 | WPDINTPN ---
Progress Note: A&P Assessment and Plan (1) Acute respiratory failure: Qualifiers: Respiratory failure complication: unspecified whether with hypoxia or hypercapnia Qualified Code(s): J96.00 - Acute respiratory failure, unspecified whether with hypoxia or hypercapnia Code(s): J96.00 - Acute respiratory failure, unspecified whether with hypoxia or hypercapnia Status: Acute Assessment and Plan: patient presented with dyspnea, positive COVID-19, bilateral diffuse infiltrates on the chest x-ray, received Lasix 40 mg IV x2 on admission - intubated on 04/09/2020 - will place patient on low tidal volume strategy, peep of 10, 45% FiO2 - continue bronchodilators, - given his fevers, elevated WBC count, hypotension started patient on cefepime and azithromycin - continue fentanyl Versed infusion for sedation, daily sedation vacation (2) COVID-19: Code(s): U07.1 - COVID-19 Status: Acute Assessment and Plan: patient positive for COVID-19, 12 days prior to admission - SARS-CoV-2 PCR positive on 04/10/2020 - started patient on dexamethasone - he is out of the window for Remdesivir - patient may NOT benefit from convalescent plasma - continue droplet, airborne, contact isolation (3) Septic shock: Code(s): A41.9 - Sepsis, unspecified organism; R65.21 - Severe sepsis with septic shock Status: Acute Assessment and Plan: patient with septic shock, hypotensive, - received adequate IV fluids - started on Levophed, maintain mean arterial pressures greater than 65 mmHg - monitor urine output - lactic acid was 5.7 at admission, 1.6 this morning (4) Anemia: Qualifiers: Anemia type: due to chronic kidney disease Chronic kidney disease stage: unspecified stage Qualified Code(s): N18.9 - Chronic kidney disease, unspecified; D63.1 - Anemia in chronic kidney disease Code(s): D64.9 - Anemia, unspecified Status: Acute Assessment and Plan: patient presented with hemoglobin of 6.3 on admission - received 2 units of packed RBCs, repeat hemoglobin stable - history of GI bleed, stool for occult blood been ordered - continue PPI IV q.12 hours - appreciate GI evaluation and recommendations (5) Diabetes mellitus: Qualifiers: Diabetes mellitus type: type 2 Diabetes mellitus [facility] insulin use: without computer terminal operator use Diabetes mellitus complication status: without complication Qualified Code(s): E11.9 - Type 2 diabetes mellitus without complications Code(s): E11.9 - Type 2 diabetes mellitus without complications Status: Chronic Assessment and Plan: patient hyperglycemic, started on Accu-Cheks and sliding scale insulin - increased Levemir - continue monitor blood sugars closely (6) DVT prophylaxis: Code(s): Z29.9 - Encounter for prophylactic measures, unspecified Status: Acute Assessment and Plan: SCDs, no chemoprophylaxis given severe anemia and possible GI bleed Additional Plan will discuss with family code status: Full code critical care time spent: 38 minutes Due to a high probability of clinically significant, life threatening deterioration, the patient required my highest level of preparedness to intervene emergently and I personally spent this critical care time directly and personally managing the patient. This critical care time included obtaining a history; examining the patient; pulse oximetry; ordering and review of studies; arranging urgent treatment with development of a management plan; evaluation of patient's response to treatment; frequent reassessment; and discussions with other providers. It was exclusive of separately billable procedures and treating other patients and teaching time. Please see Assessment and Plan section and the rest of the note for further information on patient assessment and treatment Subjective Date/time seen: 04/11/20 09:40 Interval history: Reason f
--- NOTE | 2020-04-11 10:34 | PM.IMPN ---
Progress Note: A&P Assessment and Plan (1) Acute respiratory failure: Qualifiers: Respiratory failure complication: unspecified whether with hypoxia or hypercapnia Qualified Code(s): J96.00 - Acute respiratory failure, unspecified whether with hypoxia or hypercapnia Code(s): J96.00 - Acute respiratory failure, unspecified whether with hypoxia or hypercapnia Status: Acute Assessment and Plan: Appears to be secondary to confirmed COVID-19 infection. The patient has received 1 liter of NS in the ER and has pRBCs being transfused. He has also received IV lasix in the ER. IV fluids stopped. Patient treated with AIRVO but ultimately required endotracheal intubation and mechanical ventilation. Stable. Appreciate intensivsit input. Continue IV antibiotics that were started in the ER. Wean vent as tolerated. (2) Severe sepsis: Code(s): A41.9 - Sepsis, unspecified organism; R65.20 - Severe sepsis without septic shock Status: Acute Assessment and Plan: Present on admission with elevated WBC, elevated lactic, elevated CRP, HoTN and tachycardia. Probably all related to COVID. Still on IV abx since PNA can not be completely excluded. Symptoms improving. Continue to monitor blood pressure and urine output. Appreciate emt intermediate input. (3) COVID-19: Code(s): U07.1 - COVID-19 Status: Acute Assessment and Plan: As above. Continue droplet isolation, supportive care. Continue Dexamethasone. The patient has had COVID-19 for more than 10 days and does not meet criteria for Remdesivir therapy. Continue bronchodilators. (4) Symptomatic anemia: Code(s): D64.9 - Anemia, unspecified Status: Acute Assessment and Plan: Hgb 6.3 on admission. Patient was transfused 2 units of packed red blood cells. Hemoglobin climbed 10.2 but is now trend back down to 8 4 today. Continue to monitor closely. Transfuse as necessary. IFOB ordered. (5) KAUR (acute kidney injury): Code(s): N17.9 - Acute kidney failure, unspecified Status: Acute Assessment and Plan: Cr 1.2 on admission which is baseline. Cr climbing slowly and is now 1.7. Not on IV fluids. Acute kidney injury probably ATN related to above. Good urine output. Continue to monitor. (6) Leukocytosis: Qualifiers: Leukocytosis type: unspecified Qualified Code(s): D72.829 - Elevated white blood cell count, unspecified Code(s): D72.829 - Elevated white blood cell count, unspecified Status: Acute Assessment and Plan: Appears to be secondary to COVID-19 and severe sepsis. WBC about 16K and unchanged from yesterday. Persistent elevation could be steroid related. Continue to monitor CBCs. (7) Hyponatremia: Code(s): E87.1 - Hypo-osmolality and hyponatremia Status: Acute Assessment and Plan: Hyponatremia noted on admisison and essentially unchanged. Check urine Na and Cr. (8) Diabetes mellitus: Qualifiers: Diabetes mellitus complication status: without complication Diabetes mellitus long-term insulin use: without long-term use Diabetes mellitus type: type 2 Qualified Code(s): E11.9 - Type 2 diabetes mellitus without complications Code(s): E11.9 - Type 2 diabetes mellitus without complications Status: Chronic Assessment and Plan: A1c 6.9 in February. The patient's blood glucose was reviewed on 04/11 Glucose elevated into the 200's probably related to the steroids. Not felt to have DKA. Continue AccuCheks covering with sliding scale. Hypoglycemia protocol available as needed. Continue current medications with Levemir. (9) CAD (coronary artery disease): Qualifiers: Associated angina: without angina Coronary Disease-Associated Artery/Lesion type: bypass graft [place] vs. transplanted heart: [place] heart Qualified Code(s): I25.810 - Atherosclerosis of coronary artery bypass graft(
--- NOTE | 2020-04-11 11:03 | ECG_ITS ---
Measurements Intervals [place] Rate: 76 P: 58 MS: 148 QRS: -5 QRSD: 99 T: -74 QT: 410 QTc: 463 Interpretive Statements SINUS RHYTHM INCOMPLETE RIGHT BUNDLE BRANCH BLOCK ST-T WAVE ABNORMALITY IN ANTEROLAT/INF LEADS- CONSIDER ISCHEMIA BASELINE WANDER- V4 ABNORMAL ECG Electronically Signed On 04-11-2020 15:13:54 CDT by Corky Arevalo D.O.
--- NOTE | 2020-04-11 11:03 | WPDGIPROGNO ---
Progress Note: A&P Additional Plan Patient remains intubated in the ICU. Unable to add any history. No active bleeding reported by nursing staff. Physical exam reveals patient to be on the vent. Abdomen is soft nontender with no organomegaly. Labs reveal hemoglobin 8.4, hematocrit 24.5, MCV 86. Relatively stable after transfusion. COVID testing positive. Impression 1. Respiratory failure. COVID pneumonia evident. Plan is for treatment per intensive care unit. 2. GI bleeding. Suspect upper GI source. Plan is to treat empirically for peptic ulcer disease. Hemoglobin has improved after transfusion. Plan is to defer invasive testing such as endoscopy unless active bleeding ensues. we wish to limit spread of this virus. Subjective Date/time seen: 04/11/20 11:03 Objective Data Vital Signs Vital Signs: Vital Signs - 24 hr 04/10/20 11:33 04/10/20 12:00 04/10/20 14:00 Temperature 97.2 F L Pulse Rate 93 90 112 H Respiratory Rate 17 19 Blood Pressure 109/60 118/59 L Pulse Oximetry 95 96 98 04/10/20 14:15 04/10/20 14:32 04/10/20 14:33 Temperature Pulse Rate 95 110 H 110 H Respiratory Rate 19 19 19 Blood Pressure Pulse Oximetry 92 04/10/20 14:49 04/10/20 15:36 04/10/20 16:00 Temperature 98.2 F Pulse Rate 112 H 88 81 Respiratory Rate 23 H 17 17 Blood Pressure 121/58 L Pulse Oximetry 98 04/10/20 17:10 04/10/20 17:45 04/10/20 17:47 Temperature Pulse Rate 95 83 83 Respiratory Rate 16 Blood Pressure 118/57 L Pulse Oximetry 92 04/10/20 17:48 04/10/20 18:00 04/10/20 20:00 Temperature 97.1 F L Pulse Rate 82 77 71 Respiratory Rate 16 17 17 Blood Pressure 127/63 140/64 Pulse Oximetry 100 100 04/10/20 20:07 04/10/20 20:10 04/10/20 20:30 Temperature Pulse Rate 71 79 76 Respiratory Rate 20 18 Blood Pressure 140/64 Pulse Oximetry 04/10/20 20:31 04/10/20 20:32 04/10/20 21:00 Temperature Pulse Rate 75 74 70 Respiratory Rate 18 Blood Pressure 131/60 118/54 L Pulse Oximetry 97 99 04/10/20 22:00 04/10/20 22:11 04/10/20 23:27 Temperature Pulse Rate 69 69 67 Respiratory Rate 17 Blood Pressure 125/57 L 125/57 L Pulse Oximetry 98 100 04/10/20 23:34 04/10/20 23:50 04/11/20 00:00 Temperature 97.2 F L Pulse Rate 68 66 70 Respiratory Rate 18 17 Blood Pressure 116/76 Pulse Oximetry 100 100 96 04/11/20 00:02 04/11/20 00:03 04/11/20 02:00 Temperature Pulse Rate 70 70 65 Respiratory Rate 20 17 Blood Pressure 116/76 103/53 L Pulse Oximetry 100 04/11/20 02:18 04/11/20 02:45 04/11/20 03:43 Temperature Pulse Rate 65 65 67 Respiratory Rate 16 Blood Pressure Pulse Oximetry 100 100 100 04/11/20 04:00 04/11/20 04:03 04/11/20 04:16 Temperature 97.6 F Pulse Rate 65 65 68 Respiratory Rate 20 20 Blood Pressure 113/56 L Pulse Oximetry 98 100 04/11/20 04:17 04/11/20 04:53 04/11/20 05:01 Temperature Pulse Rate 69 79 77 Respiratory Rate 17 Blood Pressure 113/56 L 131/59 L Pulse Oximetry 04/11/20 05:31 04/11/20 06:00 04/11/20 08:00 Temperature 97.7 F Pulse Rate 73 71 91 Respiratory Rate 17 17 17 Blood Pressure 120/59 L 118/59 L 129/69 Pulse Oximetry 96 97 96 04/11/20 08:03 04/11/20 08:10 04/11/20 08:20 Temperature Pulse Rate 92 97 97 Respiratory Rate 16 Blood Pressure 129/69 Pulse Oximetry 94 04/11/20 09:00 04/11/20 09:05 04/11/20 09:41 Temperature Pulse Rate 94 92 78 Respiratory Rate 16 16 16 Blood Pressure Pulse Oximetry 04/11/20 10:00 04/11/20 10:53 Temperature Pulse Rate 70 68 Respiratory Rate 16 Blood Pressure 104/54 L Pulse Oximetry 100 100 Intake/Output Intake/Output: Intake & Output 04/08/20 04/09/20 04/10/20 04/11/20 23:59 23:59 23:59 23:59 Intake Total 1050 921 381 Output Total 6902 170 Balance 1050 -224 -39 Meds/Results Medications: Active Medications Generic Name Dose Route S
--- NOTE | 2020-04-11 11:06 | PCDIET ---
Nutrition Follow-Up Complete: Nutrition Diagnosis: Inadequate oral intake related to oral intubation as evidenced by NPO status. Nutrition Goal: Patient to meet estimated nutritional needs. Goal in progress. MD ordered to increase Glucerna 1.2 toward goal of 60mL/hr, as recommended by RD. This will provide 1584kcal, 79g protein and 1062mL free water over 22 hours/day. Recommend continuing 30mL water flush every 4 hours at this time. Last recorded weight is 73.4 kg which is increased from last review. I/O noted. Bowel Motility: Last documented BM on 04/09/20. Labs Reviewed: Hgb (8.4), Hct (24.5), Glu (258), BUN (39), Cr (1.7), Na (127), Alb (2.7), Jamie Ca (8.24) Meds Noted: Albuterol, Fentanyl, Zithromax, Novolog, Rocephin, Levemir, Decadron, Versed, Protonix Additional Notes: No documented skin breakdown. Will continue to monitor with same goal. Nutrition Monitoring and Evaluation: Follow up every 3 days. Follow daily in ICU rounds.
[2020-04-11 11:40] LABS: Glucose Point of Care 204 (65-105)
[2020-04-11 13:06] LABS: Sodium Urine Random < 5 meq/L
[2020-04-11] MEDS: ASPIRIN 325 MG TABLET FEED TUBE (13:25)
--- NOTE | 2020-04-11 14:49 | PM.CNCAR ---
Assessment and Plan Assessment and plan (1) NSTEMI (non-ST elevated myocardial infarction): Code(s): I21.4 - Non-ST elevation (NSTEMI) myocardial infarction Status: Acute Assessment and Plan: non-STEMI in the setting of severe anemia and active COVID infection in a patient with known coronary disease. At this point supportive care is most appropriate. he has no ST elevations. Will continue treat medically for now. He is taking aspirin but this should be done cautiously given his severe anemia. Will resume low-dose metoprolol 12.5 mg p.o. b.i.d. and gradually get him back on longstanding metoprolol as able. Atorvastatin 20 mg p.o. daily. (2) COVID-19: Code(s): U07.1 - COVID-19 Status: Acute Assessment and Plan: Supportive care per lab coordinator (3) CAD (coronary artery disease): Qualifiers: Coronary Disease-Associated Artery/Lesion type: bypass graft [place] vs. transplanted heart: [place] heart Associated angina: without angina Qualified Code(s): I25.810 - Atherosclerosis of coronary artery bypass graft(s) without angina pectoris Code(s): I25.10 - Atherosclerotic heart disease of [place] coronary artery without angina pectoris Status: Chronic Assessment and Plan: as above (4) Symptomatic anemia: Code(s): D64.9 - Anemia, unspecified Status: Acute Assessment and Plan: status post transfusion. Will follow H&H (5) Hypertension associated with diabetes: Code(s): E11.59 - Type 2 diabetes mellitus with other circulatory complications; I10 - Essential (primary) hypertension Status: Acute (6) Hyperlipidemia associated with type 2 diabetes mellitus: Code(s): E11.69 - Type 2 diabetes mellitus with other specified complication; E78.5 - Hyperlipidemia, unspecified Status: Acute History of Present Illness History of Present Illness Consult date/time: 04/11/20 14:49 Requesting physician: Ever Uribe MD Consult reason: Other ( elevated troponin) Reason For Visit: Pneumonia, GI bleed, Anemia Narrative: date of service 04/11/2020 Reason for consultation: Elevated troponin History patient is an 79-year-old male who is a patient of mine. He does have history of coronary disease and valvular heart disease with moderate mitral regurgitation and mild aortic stenosis with moderate carotid vascular disease. He came to the hospital for increased fatigue, weakness, failure to thrive, coughing. he is COVID positive. Currently intubated and sedated. I saw the patient as recently as December and at that time he was doing well without any chest pains or other cardiac symptoms. EKG is concerning for inferolateral ischemia but he was also found to be severely anemic. He has had worsening shortness of breath. History is predominantly obtained by reviewing chart record. He denied any chest pain, black or bloody stools. No abdominal pain. No recent syncope. Review of Systems Review of Systems: All systems reviewed & are unremarkable except as noted in HPI and below Constitutional: Constitutional: Reports fatigue, Reports lethargy and Reports weakness Eyes: Eyes: Denies blurry vision ENT: Reports Normal hearing present Cardiovascular: Cardiovascular: Denies chest pain Respiratory: Respiratory: Reports cough and Reports dyspnea Gastrointestinal: Gastrointestinal: Denies abdominal pain Genitourinary: Genitourinary: Denies dysuria Musculoskeletal: Musculoskeletal: Denies neck pain Integumentary/Breasts: Skin/Breast: Denies dry skin Neurologic: Denies headache(s) Psychiatric: Psychiatric: Denies behavioral changes Endocrine: Endocrine: Reports excessive sweating Hematologic/Lymphatic: Hematologic/Lymphatic: Denies easy bleeding Allergic/Immunologic: Allergic/Immunologic: Denies lip swelling PMFSH Past Medical History Medical History CAD (coronary art
[2020-04-11 18:05] LABS: Glucose Point of Care 185 (65-105)
[2020-04-11 18:09] LABS: Hemoglobin 7.8 g/dL (14.0-18.0)
[2020-04-11 23:55] LABS: Glucose Point of Care 223 (65-105)
[2020-04-12] VITALS (46 sets, daily range): BP systolic 93–141; BP diastolic 47–74; PULSE 55–86; RESP 15–29; TEMP 36.1–36.8; O2SAT 100
[2020-04-12 03:57] LABS: Base Excess ABG -1.9 mEq/l (+/-2.0); Carboxyhemoglobin 0.1 % THb (0-2.0); Fractional Inspired Oxygen 40 %; Methemoglobin ABG 0.4 %THb (0-1.5); Oxygen Content ABG 13.6 %vol (16.0-22.0); Oxygen Saturation ABG 97.7 % (95.0-100.0); Oxyhemoglobin 95.6 % THb (90.0-100.0); PCO2 ABG 34.1 mmHg (35.0-45.0); PO2 FiO2 Ratio Arterial Blood 2.47 %; Reduced Hemoglobin 3.9 %THb (0-5.0); pH ABG 7.427 (7.350-7.450)
[2020-04-12 03:58] LABS: Arterial Blood Gas Ventilator rate 16 /MIN; Device VENTILATOR; Modified Allen's Test Pass; Site Drawn RIGHT RADIAL
[2020-04-12 03:59] LABS: Arterial Blood Gas PEEP 10 cmH2O; Arterial Blood Gas Tidal Volume 500 ml; Arterial Blood Gas Vent Mode CMV
[2020-04-12 04:32] LABS: Hematocrit 25.4 % (42.0-52.0); Hemoglobin 8.5 g/dL (14.0-18.0); Mean Corpuscular HGB Conc 33.5 g/dl (32-36); Mean Corpuscular Volume 86.7 fl (80-100); Mean Platelet Volume 11.3 fl (7.4-10.4); Platelet Count Result 261 k/mm3 (150-375); Red Blood Count 2.93 M/mm3 (4.6-6.20); Red Cell Distribution Width 14.6 % (11.5-14.5); White Blood Count 16.1 K/mm3 (4.5-10.0)
[2020-04-12 04:46] LABS: Lactic Acid Reflex 1.8 mmol/L (0.7-2.1)
[2020-04-12 04:47] LABS: Alanine Aminotransferase 37 U/L (4-50); Albumin Level 2.8 g/dL (3.5-5.1); Alkaline Phosphatase 108 U/L (38-126); Anion Gap 8 mmol/L (8-16); Aspartate Amino Transferase 57 U/L (17-59); Bilirubin,Total 0.3 mg/dL (0.2-1.3); Blood Urea Nitrogen 48 mg/dL (9-20); CRP 5.7 mg/dL (<1.0); Calcium 7.5 mg/dL (8.4-10.2); Carbon Dioxide 26 mmol/L (22-30); Chloride 95 mmol/L (98-107); Estimated CRCL calculation 30 ml/min; Estimated Glomerular Filt Rate 42; Glucose 223 mg/dL (75-110); Magnesium 2.8 mg/dL (1.6-2.3); Potassium 4.8 mmol/L (3.4-5.0); Sodium 129 mmol/L (137-145)
[2020-04-12] MEDS: CENTRAL LINE FLUSH 10 ML IV PUSH ×3 (05:25→20:07)
[2020-04-12] MEDS: INSULIN ASPART (*BKC) 100 UNITS/ML SUB-Q ×4 (05:25→23:55)
[2020-04-12] MEDS: INSULIN DETEMIR 100 UNITS/ML 13 UNITS SUB-Q ×2 (08:15→19:55)
[2020-04-12] MEDS: PANTOPRAZOLE SODIUM IV 40 MG VIAL IV PUSH ×2 (08:16→17:19)
[2020-04-12] MEDS: polyethylene glycoL 3350 17 GM POWD.PACK PO (08:16)
[2020-04-12] MEDS: ASPIRIN 81 MG CHEWABLE TABLET FEED TUBE (08:17)
--- NOTE | 2020-04-12 09:35 | WPDGIPROGNO ---
Progress Note: A&P Additional Plan Patient remains on the ventilator in the ICU. No additional bleeding described. Patient unable to add any history. Physical exam reveals a benign abdomen. Labs reveal hemoglobin 8.5, hematocrit 25.4, MCV 86. Stable after transfusion. Impression 1. GI bleeding. No active bleed at present this appears to resolve. Suspect stress ulcer or gastritis. Plan is for supportive care with IV proton pump inhibitor therapy continue to follow hemoglobin. We will defer invasive testing given his active COVID status. Consider endoscopy only if active bleeding develops. 2. COVID positive pneumonia. Treatment as per leaf sucker operator. 3. Respiratory failure patient on ventilator. 4. Non ST elevated SC. Cardiology following. Subjective Date/time seen: 04/12/20 09:35 Objective Data Vital Signs Vital Signs: Vital Signs - 24 hr 04/11/20 09:41 04/11/20 10:00 04/11/20 10:53 Temperature Pulse Rate 78 70 68 Respiratory Rate 16 16 Blood Pressure 104/54 L Pulse Oximetry 100 100 04/11/20 11:26 04/11/20 12:00 04/11/20 12:14 Temperature 97.3 F L Pulse Rate 82 65 80 Respiratory Rate 16 16 16 Blood Pressure 109/60 Pulse Oximetry 100 04/11/20 13:25 04/11/20 14:00 04/11/20 14:02 Temperature Pulse Rate 89 70 80 Respiratory Rate 16 16 16 Blood Pressure 109/50 L Pulse Oximetry 100 04/11/20 15:56 04/11/20 16:00 04/11/20 17:19 Temperature 98.2 F Pulse Rate 65 62 60 Respiratory Rate 16 Blood Pressure 104/52 L Pulse Oximetry 100 100 100 04/11/20 17:54 04/11/20 17:55 04/11/20 17:58 Temperature Pulse Rate 63 63 62 Respiratory Rate 16 16 Blood Pressure 103/57 L Pulse Oximetry 04/11/20 18:00 04/11/20 20:00 04/11/20 20:58 Temperature 97.1 F L Pulse Rate 62 73 63 Respiratory Rate 16 16 Blood Pressure 100/47 L 102/48 L Pulse Oximetry 100 100 100 04/11/20 21:21 04/11/20 21:22 04/11/20 21:30 Temperature Pulse Rate 59 L 59 L 67 Respiratory Rate 16 16 17 Blood Pressure 110/52 L Pulse Oximetry 100 04/11/20 22:00 04/11/20 23:48 04/11/20 23:49 Temperature Pulse Rate 64 76 76 Respiratory Rate 18 16 16 Blood Pressure 104/48 L Pulse Oximetry 100 04/11/20 23:54 04/12/20 00:00 04/12/20 01:00 Temperature 97.2 F L Pulse Rate 72 68 67 Respiratory Rate 17 16 Blood Pressure 118/59 L 102/53 L Pulse Oximetry 100 100 100 04/12/20 02:00 04/12/20 02:19 04/12/20 03:09 Temperature Pulse Rate 64 56 L 56 L Respiratory Rate 16 16 Blood Pressure 101/50 L Pulse Oximetry 100 100 100 04/12/20 03:22 04/12/20 04:00 04/12/20 04:23 Temperature 97.0 F L Pulse Rate 76 82 80 Respiratory Rate 16 17 17 Blood Pressure 103/74 119/62 Pulse Oximetry 100 100 04/12/20 04:24 04/12/20 04:56 04/12/20 05:23 Temperature Pulse Rate 81 71 78 Respiratory Rate 17 16 Blood Pressure Pulse Oximetry 100 04/12/20 06:00 04/12/20 08:00 04/12/20 08:21 Temperature 98 F Pulse Rate 80 79 80 Respiratory Rate 17 16 16 Blood Pressure 111/54 L 141/59 H Pulse Oximetry 100 100 04/12/20 08:22 04/12/20 08:23 04/12/20 08:26 Temperature Pulse Rate 78 78 80 Respiratory Rate 16 16 16 Blood Pressure Pulse Oximetry 04/12/20 08:31 04/12/20 08:39 Temperature Pulse Rate 80 76 Respiratory Rate 16 Blood Pressure Pulse Oximetry 100 Intake/Output Intake/Output: Intake & Output 04/09/20 04/10/20 04/11/20 04/12/20 23:59 23:59 23:59 23:59 Intake Total 9231 036 5804 768 Output Total 1145 870 400 Balance 1050 -224 369 368 Meds/Results Medications: Active Medications Generic Name Dose Route Start Last Admin Trade Name Freq PRN Reason Stop Dose Admin Albuterol 2 puff 04/09/20 20:00 04/10/20 09:01 Proventil Hfa INHALATION Not Given QIDRT [facility] Aspirin 81 mg 04/12/20 08:00 04/12/20 08:17 Aspirin Chewable FEED TUBE 81 mg DAILY@0800 TAINA Administration Dex
[2020-04-12] MEDS: METOCLOPRAMIDE HCL INJ 10 MG/2 ML VIAL 5 MG IV PUSH ×3 (11:06→23:56)
--- NOTE | 2020-04-12 11:18 | PCDIET ---
ICU Rounding Note: Tube feedings previously held for residual of 400mL. Reglan ordered and tube feedings have resumed with current rate of 50mL/hr Glucerna 1.2. Last recorded weight is 75.1kg which is increased from last review. Bowel Motility: Last documented BM on 04/10/20. Labs Reviewed: Hgb (8.5), Hct (25.4), Glu (223), BUN (48), Cr (1.6), Na (129), Alb (2.8), Jamie Ca (8.46) Meds Noted: Albuterol, Decadron, Levemir, Protonix, Zithromax, Fentanyl, Reglan, Miralax, Rocephin, Novolog, Versed Additional Notes: No documented skin breakdown Following daily in ICU rounds. Assessing/reassessing every Friday/Friday.
[2020-04-12 11:23] LABS: Glucose Point of Care 251 (65-105)
--- NOTE | 2020-04-12 11:52 | PM.PNCARD ---
Progress Note: A&P Assessment and Plan (1) NSTEMI (non-ST elevated myocardial infarction): Code(s): I21.4 - Non-ST elevation (NSTEMI) myocardial infarction Status: Acute Assessment and Plan: non-STEMI in the setting of severe anemia and active COVID infection in a patient with known coronary disease. At this point supportive care is most appropriate. continue aspirin restart atorvastatin 20 mg p.o. daily. (2) COVID-19: Code(s): U07.1 - COVID-19 Status: Acute Assessment and Plan: Supportive care per frickertron checker Wean pressors as able (3) CAD (coronary artery disease): Qualifiers: Coronary Disease-Associated Artery/Lesion type: bypass graft [place] vs. transplanted heart: [place] heart Associated angina: without angina Qualified Code(s): I25.810 - Atherosclerosis of coronary artery bypass graft(s) without angina pectoris Code(s): I25.10 - Atherosclerotic heart disease of [place] coronary artery without angina pectoris Status: Chronic Assessment and Plan: as above (4) Symptomatic anemia: Code(s): D64.9 - Anemia, unspecified Status: Acute Assessment and Plan: status post transfusion. Will follow H&H (5) Hypertension associated with diabetes: Code(s): E11.59 - Type 2 diabetes mellitus with other circulatory complications; I10 - Essential (primary) hypertension Status: Acute Assessment and Plan: Still on pressors (6) Hyperlipidemia associated with type 2 diabetes mellitus: Code(s): E11.69 - Type 2 diabetes mellitus with other specified complication; E78.5 - Hyperlipidemia, unspecified Status: Acute (7) Valvular heart disease: Code(s): I38 - Endocarditis, valve unspecified Status: Acute Assessment and Plan: echocardiogram showing moderate aortic stenosis and moderate to severe mitral regurgitation. Not significantly worse than baseline. Subjective Date/time seen: 04/12/20 11:52 Interval history: 79yo male here for severe sepsis and acute respiratory failure. Reddy virus positive. Positive troponins Date of service 04/12/2020: Patient remains intubated and sedated. Rhythm is stable. Review of Systems Review of Systems: All systems reviewed & are unremarkable except as noted in HPI and below Constitutional: Constitutional: Reports excessive sweating, Reports fatigue, Denies headache(s), Reports lethargy and Reports weakness Eyes: Eyes: Denies blurry vision ENT: Reports Normal hearing present, Denies headache(s), Denies lip swelling and Denies neck pain Cardiovascular: Cardiovascular: Denies chest pain and Reports dyspnea Respiratory: Respiratory: Reports cough and Reports dyspnea Gastrointestinal: Gastrointestinal: Denies abdominal pain Genitourinary: Genitourinary: Denies dysuria Musculoskeletal: Musculoskeletal: Denies neck pain Integumentary/Breasts: Skin/Breast: Denies dry skin Neurologic: Reports Normal hearing present, Denies behavioral changes, Denies headache(s) and Reports weakness Psychiatric: Psychiatric: Denies behavioral changes Endocrine: Endocrine: Reports excessive sweating and Reports fatigue Hematologic/Lymphatic: Hematologic/Lymphatic: Denies easy bleeding Allergic/Immunologic: Allergic/Immunologic: Denies lip swelling Exam Narrative: Exam Narrative: currently intubated and sedated Const: General: no acute distress Resp: Effort & Inspection: normal respiratory effort Cardio: Rate: regular rate Rhythm: regular rhythm Skin: General skin exam: normal color Neuro: Cranial nerves: Yes Normal hearing present Other: currently sedated Extrem: General: no edema Objective Data Vital Signs Vital Signs: Vital Signs - 24 hr 04/11/20 12:00 04/11/20 12:14 04/11/20 13:25 Temperature 36.3 C L Pulse Rate 65 80 89 Respiratory Rate 16 16 16 Blood Pressure 109/60 Pulse Oximetry 100 04/11/20 14:00
--- NOTE | 2020-04-12 12:55 | WPDINTPN ---
Progress Note: A&P Assessment and Plan (1) Acute respiratory failure: Qualifiers: Respiratory failure complication: unspecified whether with hypoxia or hypercapnia Qualified Code(s): J96.00 - Acute respiratory failure, unspecified whether with hypoxia or hypercapnia Code(s): J96.00 - Acute respiratory failure, unspecified whether with hypoxia or hypercapnia Status: Acute Assessment and Plan: patient presented with dyspnea, positive COVID-19, bilateral diffuse infiltrates on the chest x-ray, received Lasix 40 mg IV x2 on admission - intubated on 04/09/2020 - chest x-ray and ABGs reviewed, ventilator adjusted - continue bronchodilators, - fevers, hypotension resolved, white cell count remains elevated but stable. Continue cefepime and azithromycin - urine and blood cultures are negative - continue fentanyl Versed infusion for sedation, daily sedation vacation (2) COVID-19: Code(s): U07.1 - COVID-19 Status: Acute Assessment and Plan: patient positive for COVID-19, 12 days prior to admission - SARS-CoV-2 PCR positive on 04/10/2020 - started patient on dexamethasone - he is out of the window for Remdesivir - patient may NOT benefit from convalescent plasma - continue droplet, airborne, contact isolation (3) Septic shock: Code(s): A41.9 - Sepsis, unspecified organism; R65.21 - Severe sepsis with septic shock Status: Acute Assessment and Plan: RESOLVED: PATIENT OFF LEVOPHED - received adequate IV fluids - monitor urine output - Lactic acid resolved - urine blood cultures are negative (4) Anemia: Qualifiers: Anemia type: due to chronic kidney disease Chronic kidney disease stage: unspecified stage Qualified Code(s): N18.9 - Chronic kidney disease, unspecified; D63.1 - Anemia in chronic kidney disease Code(s): D64.9 - Anemia, unspecified Status: Acute Assessment and Plan: patient presented with hemoglobin of 6.3 on admission, likely related to GI bleed - received 2 units of packed RBCs, repeat hemoglobin stable - history of GI bleed, stool for occult blood been ordered - continue PPI IV q.12 hours - appreciate GI evaluation and recommendations - continue supportive care (5) Diabetes mellitus: Qualifiers: Diabetes mellitus type: type 2 Diabetes mellitus superintendent container terminal insulin use: without superintendent container terminal use Diabetes mellitus complication status: without complication Qualified Code(s): E11.9 - Type 2 diabetes mellitus without complications Code(s): E11.9 - Type 2 diabetes mellitus without complications Status: Chronic Assessment and Plan: patient hyperglycemic, started on Accu-Cheks and sliding scale insulin - increased Levemir - continue monitor blood sugars closely (6) DVT prophylaxis: Code(s): Z29.9 - Encounter for prophylactic measures, unspecified Status: Acute Assessment and Plan: SCDs, no chemoprophylaxis given severe anemia and possible GI bleed (7) Valvular heart disease: Code(s): I38 - Endocarditis, valve unspecified Status: Acute Assessment and Plan: echocardiogram done on 04/11/2020 showed moderate aortic stenosis and mild moderate to severe mitral valve regurg - cardiology following closely (8) NSTEMI (non-ST elevated myocardial infarction): Code(s): I21.4 - Non-ST elevation (NSTEMI) myocardial infarction Status: Acute Assessment and Plan: Patient has a history of known coronary artery disease, currently NSTEMI given the changes and elevated troponin. Likely related to severe anemia and acute COVID-19 infection - continue supportive care, aspirin and atorvastatin (9) Diastolic dysfunction: Code(s): I51.89 - Other ill-defined heart diseases Status: Acute Assessment and Plan: grade 2 diastolic dysfunction as seen on echocardiogram echocardiogram done on 04/11/2020: 1. Complete two-dimensional, co
[2020-04-12 17:37] LABS: Glucose Point of Care 208 (65-105)
--- NOTE | 2020-04-12 18:50 | PM.IMPN ---
Progress Note: A&P Assessment and Plan (1) Acute respiratory failure: Qualifiers: Respiratory failure complication: unspecified whether with hypoxia or hypercapnia Qualified Code(s): J96.00 - Acute respiratory failure, unspecified whether with hypoxia or hypercapnia Code(s): J96.00 - Acute respiratory failure, unspecified whether with hypoxia or hypercapnia Status: Acute Assessment and Plan: Appears to be secondary to confirmed COVID-19 infection. The patient has received 1 liter of NS in the ER and has pRBCs being transfused. He has also received IV lasix in the ER. IV fluids stopped. Patient treated with AIRVO but ultimately required endotracheal intubation and mechanical ventilation. Stable. Appreciate intensivsit input. Continue IV antibiotics that were started in the ER. Wean vent as tolerated. (2) Severe sepsis: Code(s): A41.9 - Sepsis, unspecified organism; R65.20 - Severe sepsis without septic shock Status: Acute Assessment and Plan: Present on admission with elevated WBC, elevated lactic, elevated CRP, HoTN and tachycardia. Probably all related to COVID. Still on IV abx since PNA can not be completely excluded. Symptoms improving. Continue to monitor blood pressure and urine output. Appreciate pull worker input. (3) COVID-19: Code(s): U07.1 - COVID-19 Status: Acute Assessment and Plan: As above. Continue droplet isolation, supportive care. Continue Dexamethasone. The patient has had COVID-19 for more than 10 days and does not meet criteria for Remdesivir therapy. Continue bronchodilators. (4) Symptomatic anemia: Code(s): D64.9 - Anemia, unspecified Status: Acute Assessment and Plan: Hgb 6.3 on admission. Patient was transfused 2 units of packed red blood cells. Hemoglobin climbed 10.2 but is now trend back down to 8 5 today. Continue to monitor closely. Transfuse as necessary. IFOB ordered. (5) NSTEMI (non-ST elevated myocardial infarction): Code(s): I21.4 - Non-ST elevation (NSTEMI) myocardial infarction Status: Acute Assessment and Plan: EKG on admisison showing ST T wave changes anterior lateral and high lateral leads. Presumably patient was on aspirin at home although not listed in his home medication list. Repeat EKG now showing ST-T wave changes in the lateral and inferior leads. Trop peaked at 2.06. NSTEMI related to COVID and/or the anemia. Echo as mentioned below. Appreciate Cardiology input. Continue ASA, Lipitor. (6) Valvular heart disease: Code(s): I38 - Endocarditis, valve unspecified Status: Acute Assessment and Plan: Echo showing EF 55-60%, Grade II diastolic dysfunction, moderate aortic valve stenosis and moderate to severe mitral valve regurgitation. May contribute to his current condition. (7) KAUR (acute kidney injury): Code(s): N17.9 - Acute kidney failure, unspecified Status: Acute Assessment and Plan: Cr 1.2 on admission which is baseline. Cr climbing slowly and is now 1.6. Not on IV fluids. Acute kidney injury probably ATN and/or dehydration. Urine output not brisk. Continue to monitor. (8) Leukocytosis: Qualifiers: Leukocytosis type: unspecified Qualified Code(s): D72.829 - Elevated white blood cell count, unspecified Code(s): D72.829 - Elevated white blood cell count, unspecified Status: Acute Assessment and Plan: Appears to be secondary to COVID-19 and severe sepsis +/- steroids. WBC 16K and unchanged from yesterday. Continue to monitor CBCs. (9) Hyponatremia: Code(s): E87.1 - Hypo-osmolality and hyponatremia Status: Acute Assessment and Plan: Hyponatremia noted on admisison and essentially unchanged. Urine Na low at 5 with Cr 128 and FENa 0.05% to suggest dehydration from insensible losses. Consider small amount of IV fluids. (10) Diabete
[2020-04-13] VITALS (32 sets, daily range): BP systolic 115–168; BP diastolic 48–71; PULSE 53–106; RESP 14–25; TEMP 35.6–37; O2SAT 95–100
[2020-04-13 00:06] LABS: Glucose Point of Care 248 (65-105)
[2020-04-13 04:18] LABS: Alveolar/Arterial O2 Gradient 92.8 mmHg; Base Excess ABG 0.1 mEq/l (+/-2.0); Carboxyhemoglobin 0.2 % THb (0-2.0); Fractional Inspired Oxygen 35 %; HCO3 ABG 22.7 mEq/l (22.0-26.0); Methemoglobin ABG 0.3 %THb (0-1.5); Oxygen Saturation ABG 98.8 % (95.0-100.0); Oxyhemoglobin 96.9 % THb (90.0-100.0); PCO2 ABG 29.1 mmHg (35.0-45.0); PO2 ABG 122.9 mmHg (80.0-100.0); PO2 FiO2 Ratio Arterial Blood 3.51 %; Reduced Hemoglobin 2.6 %THb (0-5.0); Total Hemoglobin 8.6 g/dL (12.0-18.0)
[2020-04-13 04:20] LABS: Arterial Blood Gas PEEP 8 cmH2O; Arterial Blood Gas Vent Mode CMV; Arterial Blood Gas Ventilator rate 16 /MIN; Device VENTILATOR; Modified Allen's Test Pass; Site Drawn RIGHT RADIAL
[2020-04-13 04:21] LABS: Arterial Blood Gas Tidal Volume 500 ml
[2020-04-13 04:43] LABS: Hemoglobin 7.7 g/dL (14.0-18.0); Mean Corpuscular HGB Conc 33.5 g/dl (32-36); Mean Corpuscular Hemoglobin 29.4 pg (26-34); Mean Corpuscular Volume 87.8 fl (80-100); Mean Platelet Volume 11.2 fl (7.4-10.4); Platelet Count Result 303 k/mm3 (150-375); Red Blood Count 2.62 M/mm3 (4.6-6.20); Red Cell Distribution Width 14.4 % (11.5-14.5); White Blood Count 14.2 K/mm3 (4.5-10.0)
[2020-04-13 05:01] LABS: Lactic Acid Reflex 1.7 mmol/L (0.7-2.1)
[2020-04-13 05:03] LABS: Alanine Aminotransferase 45 U/L (4-50); Albumin Level 2.7 g/dL (3.5-5.1); Alkaline Phosphatase 107 U/L (38-126); Anion Gap 4 mmol/L (8-16); Aspartate Amino Transferase 52 U/L (17-59); Bilirubin,Total 0.3 mg/dL (0.2-1.3); Blood Urea Nitrogen 46 mg/dL (9-20); CRP 2.5 mg/dL (<1.0); Calcium 7.4 mg/dL (8.4-10.2); Carbon Dioxide 29 mmol/L (22-30); Chloride 98 mmol/L (98-107); Estimated CRCL calculation 40 ml/min; Estimated Glomerular Filt Rate 58; Glucose 198 mg/dL (75-110); Magnesium 2.8 mg/dL (1.6-2.3); Potassium 4.8 mmol/L (3.4-5.0); Sodium 131 mmol/L (137-145)
[2020-04-13] MEDS: CENTRAL LINE FLUSH 10 ML IV PUSH ×3 (05:49→20:26)
[2020-04-13] MEDS: METOCLOPRAMIDE HCL INJ 10 MG/2 ML VIAL 5 MG IV PUSH ×4 (05:49→23:23)
--- NOTE | 2020-04-13 07:27 | WPDGIPROGNO ---
Progress Note: A&P Additional Plan Patient remains on the ventilator. No active bleeding reported by nursing service. Scant bowel movements described. Physical exam room reveals abdomen to be soft no localized masses. Labs reveal hemoglobin 7.7 this morning. Matter crit 23, MCV 87. Impression 1. Anemia. Gradual decline in hemoglobin since presentation. Plan to transfuse 1-2 units of blood today. Patient presented with evidence of GI blood loss. No active bleeding subsequently. Currently being treated for presumed ulcer disease. Endoscopy deferred as hemoglobin has been stable. An because of active COVID infection. 2. Respiratory failure patient remains on ventilator. 3. COVID positive infection. 4. Non ST elevated PR. Plan to continue proton pump inhibitor monitor hemoglobin. Supportive care. Subjective Date/time seen: 04/13/20 07:27 Objective Data Vital Signs Vital Signs: Vital Signs - 24 hr 04/12/20 08:00 04/12/20 08:21 04/12/20 08:22 Temperature 98 F Pulse Rate 79 80 78 Respiratory Rate 16 16 16 Blood Pressure 141/59 H Pulse Oximetry 100 04/12/20 08:23 04/12/20 08:26 04/12/20 08:31 Temperature Pulse Rate 78 80 80 Respiratory Rate 16 16 16 Blood Pressure Pulse Oximetry 04/12/20 08:39 04/12/20 10:00 04/12/20 11:02 Temperature Pulse Rate 76 77 76 Respiratory Rate 16 Blood Pressure 125/51 L Pulse Oximetry 100 100 100 04/12/20 11:06 04/12/20 11:07 04/12/20 11:20 Temperature Pulse Rate 78 77 78 Respiratory Rate 18 16 17 Blood Pressure Pulse Oximetry 04/12/20 12:00 04/12/20 13:45 04/12/20 14:00 Temperature 98.2 F Pulse Rate 72 58 L 57 L Respiratory Rate 16 16 Blood Pressure 104/48 L 105/57 L Pulse Oximetry 100 100 100 04/12/20 14:42 04/12/20 14:46 04/12/20 15:18 Temperature Pulse Rate 55 L 64 55 L Respiratory Rate 15 16 16 Blood Pressure Pulse Oximetry 04/12/20 15:19 04/12/20 16:00 04/12/20 16:53 Temperature 98.1 F Pulse Rate 55 L 74 58 L Respiratory Rate 16 17 Blood Pressure 93/58 L Pulse Oximetry 100 100 04/12/20 17:21 04/12/20 17:32 04/12/20 17:33 Temperature Pulse Rate 80 86 81 Respiratory Rate 17 15 17 Blood Pressure Pulse Oximetry 04/12/20 17:59 04/12/20 18:35 04/12/20 20:00 Temperature 97.5 F L Pulse Rate 78 86 75 Respiratory Rate 16 29 H 17 Blood Pressure 95/47 L 136/57 L Pulse Oximetry 100 100 04/12/20 20:35 04/12/20 21:55 04/12/20 22:00 Temperature Pulse Rate 61 78 58 L Respiratory Rate 17 17 Blood Pressure 111/59 L Pulse Oximetry 100 100 04/12/20 22:51 04/12/20 23:00 04/12/20 23:25 Temperature Pulse Rate 78 70 72 Respiratory Rate 17 20 16 Blood Pressure 114/55 L Pulse Oximetry 100 100 04/12/20 23:57 04/13/20 00:00 04/13/20 02:00 Temperature 97.7 F Pulse Rate 65 81 69 Respiratory Rate 16 16 Blood Pressure 140/61 138/71 Pulse Oximetry 100 100 100 04/13/20 03:13 04/13/20 04:00 04/13/20 04:29 Temperature 97.7 F Pulse Rate 57 L 67 77 Respiratory Rate 16 16 Blood Pressure 152/65 H Pulse Oximetry 100 100 100 04/13/20 04:33 04/13/20 04:34 04/13/20 05:52 Temperature Pulse Rate 58 L 59 L 74 Respiratory Rate 16 16 16 Blood Pressure Pulse Oximetry 04/13/20 06:00 Temperature Pulse Rate 67 Respiratory Rate 17 Blood Pressure 149/60 H Pulse Oximetry 100 Intake/Output Intake/Output: Intake & Output 04/10/20 04/11/20 04/12/20 04/13/20 23:59 23:59 23:59 23:59 Intake Total 921 1239 1556 587 Output Total 1508 505 9659 700 Balance -224 369 506 -113 Meds/Results Medications: Active Medications Generic Name Dose Route Start Last Admin Trade Name Freq PRN Reason Stop Dose Admin Albuterol 2 puff 04/09/20 20:00 04/10/20 09:01 Proventil Hfa INHALATION Not Given QIDRT [facility] Aspirin 81 mg 04/12/20 08:00 09/02/20 08:17 Aspirin Chewable FEED TUBE 81 mg DAILY@0800
[2020-04-13] MEDS: ASPIRIN 81 MG CHEWABLE TABLET FEED TUBE (07:39)
[2020-04-13] MEDS: ATORVASTATIN 20 MG TABLET PO (08:00)
[2020-04-13] MEDS: polyethylene glycoL 3350 17 GM POWD.PACK PO (08:00)
[2020-04-13] MEDS: PANTOPRAZOLE SODIUM IV 40 MG VIAL IV PUSH ×2 (08:01→17:19)
[2020-04-13] MEDS: INSULIN DETEMIR 100 UNITS/ML 17 UNITS SUB-Q ×2 (08:01→20:25)
--- NOTE | 2020-04-13 10:16 | PM.IMPN ---
Progress Note: A&P Assessment and Plan (1) Acute respiratory failure: Qualifiers: Respiratory failure complication: unspecified whether with hypoxia or hypercapnia Qualified Code(s): J96.00 - Acute respiratory failure, unspecified whether with hypoxia or hypercapnia Code(s): J96.00 - Acute respiratory failure, unspecified whether with hypoxia or hypercapnia Status: Acute Assessment and Plan: Appears to be secondary to confirmed COVID-19 infection. The patient has received 1 liter of NS in the ER and had pRBC transfusion. He has also received IV lasix in the ER. IV fluids stopped. Patient treated with AIRVO but ultimately required endotracheal intubation and mechanical ventilation. Stable. Appreciate intensivsit input. Continue IV antibiotics that were started in the ER. Wean vent as tolerated. (2) Severe sepsis: Code(s): A41.9 - Sepsis, unspecified organism; R65.20 - Severe sepsis without septic shock Status: Acute Assessment and Plan: Present on admission with elevated WBC, elevated lactic, elevated CRP, HoTN and tachycardia. Probably all related to COVID. Still on IV abx since PNA can not be completely excluded. Symptoms improving. Continue to monitor blood pressure and urine output. Appreciate injection operator input. (3) COVID-19: Code(s): U07.1 - COVID-19 Status: Acute Assessment and Plan: As above. Continue droplet isolation, supportive care. Continue Dexamethasone. The patient has had COVID-19 for more than 10 days and does not meet criteria for Remdesivir therapy. Continue bronchodilators. (4) Symptomatic anemia: Code(s): D64.9 - Anemia, unspecified Status: Acute Assessment and Plan: Hgb 6.3 on admission. Patient was transfused 2 units of packed red blood cells. Hemoglobin climbed 10.2 but is now trend back down to 7.7 today. Continue to monitor closely. Transfuse as necessary. IFOB ordered. GI following. (5) NSTEMI (non-ST elevated myocardial infarction): Code(s): I21.4 - Non-ST elevation (NSTEMI) myocardial infarction Status: Acute Assessment and Plan: EKG on admisison showing ST T wave changes anterior lateral and high lateral leads. Presumably patient was on aspirin at home although not listed in his home medication list. Repeat EKG now showing ST-T wave changes in the lateral and inferior leads. Trop peaked at 2.06. NSTEMI related to COVID and/or the anemia. Echo as mentioned below. Appreciate Cardiology input. Continue ASA, Lipitor. (6) Valvular heart disease: Code(s): I38 - Endocarditis, valve unspecified Status: Acute Assessment and Plan: Echo showing EF 55-60%, Grade II diastolic dysfunction, moderate aortic valve stenosis and moderate to severe MR. May contribute to his current condition. (7) KAUR (acute kidney injury): Code(s): N17.9 - Acute kidney failure, unspecified Status: Acute Assessment and Plan: Cr 1.2 on admission which is baseline. Cr climbed slowly to 1.6 but back down to baseline now. Not on IV fluids. Acute kidney injury probably ATN and/or dehydration. Urine output better. Continue to monitor. (8) Leukocytosis: Qualifiers: Leukocytosis type: unspecified Qualified Code(s): D72.829 - Elevated white blood cell count, unspecified Code(s): D72.829 - Elevated white blood cell count, unspecified Status: Acute Assessment and Plan: Appears to be secondary to COVID-19 and severe sepsis +/- steroids. WBC slightly better at 14K. Continue to monitor CBCs. (9) Hyponatremia: Code(s): E87.1 - Hypo-osmolality and hyponatremia Status: Acute Assessment and Plan: Hyponatremia noted on admission at 126. Urine Na low at 5 with Cr 128 and FENa 0.05% to suggest dehydration from insensible losses. Na better today at 131now that he is tolerating TF. Continue to monitor. (10
--- NOTE | 2020-04-13 10:57 | PCDIET ---
ICU Rounding Note: Tube feeding held overnight for 210mL residual. Has since resumed and currently infusing at 40mL/hr (Glucerna 1.2) with low residuals. Recommend continuing to advance tube feeding toward goal of 60mL/hr, as tolerated. Last recorded weight is 76.2kg which is up from last review. Bowel Motility: Last documented BM on 04/10/20. Discussed in rounding that no new BM. Labs Reviewed: Hgb (7.7), Hct (23.0), Glu (198), BUN (46), Na (131), Alb (2.7), Jamie Ca (8.44) Meds Noted: Albuterol, Rocephin, Zithromax, Decadron, Fentanyl, Novolog, Reglan, Versed, Levophed, Levemir, Protonix, Miralax Additional Notes: Noted increase in Levemir. No documented skin breakdown. Following daily in ICU rounds. Assessing/reassessing every Friday/Friday.
--- NOTE | 2020-04-13 11:46 | PM.PNCARD ---
Progress Note: A&P Assessment and Plan (1) NSTEMI (non-ST elevated myocardial infarction): Code(s): I21.4 - Non-ST elevation (NSTEMI) myocardial infarction Status: Acute Assessment and Plan: non-STEMI in the setting of severe anemia and active COVID infection in a patient with known coronary disease. At this point supportive care is most appropriate. continue aspirin metoprolol succinate to be started at 50 mg p.o. daily (2) COVID-19: Code(s): U07.1 - COVID-19 Status: Acute Assessment and Plan: Supportive care per data entry specialist improving. CRP is down (3) CAD (coronary artery disease): Qualifiers: Coronary Disease-Associated Artery/Lesion type: bypass graft [place] vs. transplanted heart: [place] heart Associated angina: without angina Qualified Code(s): I25.810 - Atherosclerosis of coronary artery bypass graft(s) without angina pectoris Code(s): I25.10 - Atherosclerotic heart disease of [place] coronary artery without angina pectoris Status: Chronic Assessment and Plan: as above (4) Symptomatic anemia: Code(s): D64.9 - Anemia, unspecified Status: Acute Assessment and Plan: status post transfusion. Will follow H&H (5) Hypertension associated with diabetes: Code(s): E11.59 - Type 2 diabetes mellitus with other circulatory complications; I10 - Essential (primary) hypertension Status: Acute Assessment and Plan: off pressors. Not hypertensive. Restart his metoprolol succinate to 50 mg p.o. daily. First dose now. Can restart some hydralazine if needed + /minus ARB (6) Hyperlipidemia associated with type 2 diabetes mellitus: Code(s): E11.69 - Type 2 diabetes mellitus with other specified complication; E78.5 - Hyperlipidemia, unspecified Status: Acute (7) Valvular heart disease: Code(s): I38 - Endocarditis, valve unspecified Status: Acute Assessment and Plan: echocardiogram showing moderate aortic stenosis and moderate to severe mitral regurgitation. Not significantly worse than baseline. Subjective Date/time seen: 04/13/20 11:46 Interval history: 79yo male here for severe sepsis and acute respiratory failure. Reddy virus positive. Positive troponins Date of service 04/13/2020: Patient remains intubated and sedated. Rhythm is stable.Blood pressure has improved and he is now hypertensive. Off of pressors Review of Systems Review of Systems: All systems reviewed & are unremarkable except as noted in HPI and below Constitutional: Constitutional: Reports excessive sweating, Reports fatigue, Denies headache(s), Reports lethargy and Reports weakness Eyes: Eyes: Denies blurry vision ENT: Reports Normal hearing present, Denies headache(s), Denies lip swelling and Denies neck pain Cardiovascular: Cardiovascular: Denies chest pain and Reports dyspnea Respiratory: Respiratory: Reports cough and Reports dyspnea Gastrointestinal: Gastrointestinal: Denies abdominal pain Genitourinary: Genitourinary: Denies dysuria Musculoskeletal: Musculoskeletal: Denies neck pain Integumentary/Breasts: Skin/Breast: Denies dry skin Neurologic: Reports Normal hearing present, Denies behavioral changes, Denies headache(s) and Reports weakness Psychiatric: Psychiatric: Denies behavioral changes Endocrine: Endocrine: Reports excessive sweating and Reports fatigue Hematologic/Lymphatic: Hematologic/Lymphatic: Denies easy bleeding Allergic/Immunologic: Allergic/Immunologic: Denies lip swelling Exam Narrative: Exam Narrative: currently intubated and sedated Const: General: no acute distress Resp: Effort & Inspection: normal respiratory effort Cardio: Rate: regular rate Rhythm: regular rhythm Skin: General skin exam: normal color Neuro: Cranial nerves: Yes Normal hearing present Other: currently sedated Extrem: General: no edema Objective Data Vital Signs
[2020-04-13] MEDS: INSULIN ASPART (*BKC) 100 UNITS/ML SUB-Q ×3 (12:06→23:18)
--- NOTE | 2020-04-13 12:08 | WPDINTPN ---
Progress Note: A&P Assessment and Plan (1) Acute respiratory failure: Qualifiers: Respiratory failure complication: unspecified whether with hypoxia or hypercapnia Qualified Code(s): J96.00 - Acute respiratory failure, unspecified whether with hypoxia or hypercapnia Code(s): J96.00 - Acute respiratory failure, unspecified whether with hypoxia or hypercapnia Status: Acute Assessment and Plan: patient presented with dyspnea, positive COVID-19, bilateral diffuse infiltrates on the chest x-ray, received Lasix 40 mg IV x2 on admission - intubated on 04/09/2020 - chest x-ray and ABGs reviewed, ventilator adjusted - continue bronchodilators, - fevers, hypotension resolved, WBCs trending down. Continue cefepime and azithromycin - urine and blood cultures are negative - continue fentanyl Versed infusion for sedation, daily sedation vacation (2) COVID-19: Code(s): U07.1 - COVID-19 Status: Acute Assessment and Plan: patient positive for COVID-19, 12 days prior to admission - SARS-CoV-2 PCR positive on 04/10/2020 - started patient on dexamethasone - he is out of the window for Remdesivir - patient may NOT benefit from convalescent plasma - continue droplet, airborne, contact isolation (3) Septic shock: Code(s): A41.9 - Sepsis, unspecified organism; R65.21 - Severe sepsis with septic shock Status: Acute Assessment and Plan: RESOLVED: PATIENT OFF LEVOPHED - received adequate IV fluids - monitor urine output - Lactic acid resolved - urine blood cultures are negative (4) Anemia: Qualifiers: Anemia type: due to chronic kidney disease Chronic kidney disease stage: unspecified stage Qualified Code(s): N18.9 - Chronic kidney disease, unspecified; D63.1 - Anemia in chronic kidney disease Code(s): D64.9 - Anemia, unspecified Status: Acute Assessment and Plan: patient presented with hemoglobin of 6.3 on admission, likely related to GI bleed - received 2 units of packed RBCs, - hemoglobin have been stable - history of GI bleed, stool for occult blood been ordered - continue PPI IV q.12 hours - appreciate GI evaluation and recommendations - continue supportive care (5) Diabetes mellitus: Qualifiers: Diabetes mellitus type: type 2 Diabetes mellitus buttermaker continuous churn insulin use: without buttermaker continuous churn use Diabetes mellitus complication status: without complication Qualified Code(s): E11.9 - Type 2 diabetes mellitus without complications Code(s): E11.9 - Type 2 diabetes mellitus without complications Status: Chronic Assessment and Plan: patient hyperglycemic, started on Accu-Cheks and sliding scale insulin - increased Levemir - continue monitor blood sugars closely (6) DVT prophylaxis: Code(s): Z29.9 - Encounter for prophylactic measures, unspecified Status: Acute Assessment and Plan: SCDs, no chemoprophylaxis given severe anemia and possible GI bleed (7) Valvular heart disease: Code(s): I38 - Endocarditis, valve unspecified Status: Acute Assessment and Plan: echocardiogram done on 04/11/2020 showed moderate aortic stenosis and mild moderate to severe mitral valve regurg - cardiology following closely (8) NSTEMI (non-ST elevated myocardial infarction): Code(s): I21.4 - Non-ST elevation (NSTEMI) myocardial infarction Status: Acute Assessment and Plan: Patient has a history of known coronary artery disease, currently NSTEMI given the changes and elevated troponin. Likely related to severe anemia and acute COVID-19 infection - continue supportive care, aspirin and atorvastatin - discuss with cardiology, will restarting metoprolol - per cardiology: if blood pressures remain elevated, will start hydralazine if needed +/- ARB (9) Diastolic dysfunction: Code(s): I51.89 - Other ill-defined heart diseases Status: Acute Assessment and Plan
[2020-04-13] MEDS: METOPROLOL SUCCINATE EXT REL 50 MG TABCR PO (12:11)
[2020-04-13 12:30] LABS: Glucose Point of Care 271 (65-105)
[2020-04-13 16:01] LABS: IFOB Positive Control Positive; Immunochemical Fecal Occult Bl Positive (N)
[2020-04-13 17:42] LABS: Glucose Point of Care 273 (65-105)
[2020-04-14] VITALS (31 sets, daily range): BP systolic 124–169; BP diastolic 47–67; PULSE 55–94; RESP 13–23; TEMP 35.7–36.8; O2SAT 93–100
[2020-04-14 02:11] LABS: Glucose Point of Care 241 (65-105)
[2020-04-14 04:24] LABS: Hematocrit 22.8 % (42.0-52.0); Hemoglobin 7.4 g/dL (14.0-18.0); Mean Corpuscular HGB Conc 32.5 g/dl (32-36); Mean Corpuscular Hemoglobin 29.1 pg (26-34); Mean Corpuscular Volume 89.8 fl (80-100); Mean Platelet Volume 11.4 fl (7.4-10.4); Platelet Count Result 343 k/mm3 (150-375); Red Blood Count 2.54 M/mm3 (4.6-6.20); Red Cell Distribution Width 14.1 % (11.5-14.5); White Blood Count 15.7 K/mm3 (4.5-10.0)
[2020-04-14 04:44] LABS: Lactic Acid Reflex 1.6 mmol/L (0.7-2.1)
[2020-04-14 04:45] LABS: Alanine Aminotransferase 43 U/L (4-50); Albumin Level 2.7 g/dL (3.5-5.1); Alkaline Phosphatase 133 U/L (38-126); Anion Gap 4 mmol/L (8-16); Aspartate Amino Transferase 45 U/L (17-59); Bilirubin,Total 0.4 mg/dL (0.2-1.3); Blood Urea Nitrogen 44 mg/dL (9-20); Calcium 7.9 mg/dL (8.4-10.2); Carbon Dioxide 30 mmol/L (22-30); Chloride 99 mmol/L (98-107); Estimated CRCL calculation 47 ml/min; Estimated Glomerular Filt Rate > 60; Glucose 222 mg/dL (75-110); Magnesium 2.6 mg/dL (1.6-2.3); Potassium 5.2 mmol/L (3.4-5.0); Sodium 133 mmol/L (137-145)
[2020-04-14 05:54] LABS: Alveolar/Arterial O2 Gradient 174.4 mmHg; Base Excess ABG 1.9 mEq/l (+/-2.0); Carboxyhemoglobin 0.2 % THb (0-2.0); Fractional Inspired Oxygen 50 %; HCO3 ABG 25.4 mEq/l (22.0-26.0); Methemoglobin ABG 0.4 %THb (0-1.5); Oxygen Content ABG 14.2 %vol (16.0-22.0); Oxyhemoglobin 97.1 % THb (90.0-100.0); PCO2 ABG 35.6 mmHg (35.0-45.0); PO2 ABG 142.1 mmHg (80.0-100.0); PO2 FiO2 Ratio Arterial Blood 2.84 %; Reduced Hemoglobin 2.3 %THb (0-5.0); Total Hemoglobin 10.2 g/dL (12.0-18.0); pH ABG 7.472 (7.350-7.450)
[2020-04-14 05:55] LABS: Arterial Blood Gas PEEP 8 cmH2O; Arterial Blood Gas Tidal Volume 500 ml; Arterial Blood Gas Vent Mode CMV; Arterial Blood Gas Ventilator rate 14 /MIN; Device VENTILATOR; Modified Allen's Test Pass; Site Drawn RIGHT RADIAL
[2020-04-14] MEDS: INSULIN ASPART (*BKC) 100 UNITS/ML SUB-Q ×2 (06:00→17:10)
[2020-04-14] MEDS: METOCLOPRAMIDE HCL INJ 10 MG/2 ML VIAL 5 MG IV PUSH ×4 (06:01→23:59)
[2020-04-14] MEDS: CENTRAL LINE FLUSH 10 ML IV PUSH ×3 (06:05→20:00)
[2020-04-14] MEDS: METOPROLOL SUCCINATE EXT REL 50 MG TABCR PO (08:04)
[2020-04-14] MEDS: ATORVASTATIN 20 MG TABLET PO (08:04)
[2020-04-14] MEDS: ASPIRIN 81 MG CHEWABLE TABLET FEED TUBE (08:04)
[2020-04-14] MEDS: PANTOPRAZOLE SODIUM IV 40 MG VIAL IV PUSH ×2 (08:05→17:09)
[2020-04-14] MEDS: INSULIN DETEMIR 100 UNITS/ML 24 UNITS SUB-Q ×2 (08:05→22:49)
--- NOTE | 2020-04-14 08:52 | WPDINTPN ---
Progress Note: A&P Assessment and Plan (1) Acute respiratory failure: Qualifiers: Respiratory failure complication: unspecified whether with hypoxia or hypercapnia Qualified Code(s): J96.00 - Acute respiratory failure, unspecified whether with hypoxia or hypercapnia Code(s): J96.00 - Acute respiratory failure, unspecified whether with hypoxia or hypercapnia Status: Acute Assessment and Plan: patient presented with dyspnea, positive COVID-19, bilateral diffuse infiltrates on the chest x-ray, received Lasix 40 mg IV x2 on admission - intubated on 04/09/2020 - chest x-ray and ABGs reviewed, remains on CMV mode of ventilation, 40% FiO2, 5 of PEEP - continue bronchodilators, - fevers, hypotension resolved, with changes on chest x-ray. Started on cefepime and azithromycin ( started 04/10/2020), will continue - urine and blood cultures are negative - continue fentanyl Versed infusion for sedation, daily sedation vacation, maintain RASS of 0 to -2 (2) COVID-19: Code(s): U07.1 - COVID-19 Status: Acute Assessment and Plan: patient positive for COVID-19, 12 days prior to admission - SARS-CoV-2 PCR positive on 04/10/2020 - continue dexamethasone for a total of 10 days until 04/18/2020 - patient was out of the window for Remdesivir - patient will NOT benefit from convalescent plasma - continue droplet, airborne, contact isolation (3) Septic shock: Code(s): A41.9 - Sepsis, unspecified organism; R65.21 - Severe sepsis with septic shock Status: Acute Assessment and Plan: RESOLVED: PATIENT OFF LEVOPHED - received adequate IV fluids - monitor urine output - Lactic acid resolved - urine blood cultures are negative (4) Anemia: Qualifiers: Anemia type: due to chronic kidney disease Chronic kidney disease stage: unspecified stage Qualified Code(s): N18.9 - Chronic kidney disease, unspecified; D63.1 - Anemia in chronic kidney disease Code(s): D64.9 - Anemia, unspecified Status: Acute Assessment and Plan: patient presented with hemoglobin of 6.3 on admission, likely related to GI bleed - received 2 units of packed RBCs, - hemoglobin stable - history of GI bleed, stool for occult blood been ordered - continue PPI IV q.12 hours - appreciate GI evaluation and recommendations - continue supportive care (5) Diabetes mellitus: Qualifiers: Diabetes mellitus type: type 2 Diabetes mellitus watermelon inspector insulin use: without watermelon inspector use Diabetes mellitus complication status: without complication Qualified Code(s): E11.9 - Type 2 diabetes mellitus without complications Code(s): E11.9 - Type 2 diabetes mellitus without complications Status: Chronic Assessment and Plan: patient hyperglycemic, started on Accu-Cheks and sliding scale insulin - increased Levemir - continue monitor blood sugars closely (6) DVT prophylaxis: Code(s): Z29.9 - Encounter for prophylactic measures, unspecified Status: Acute Assessment and Plan: SCDs, no chemoprophylaxis given severe anemia and possible GI bleed (7) Valvular heart disease: Code(s): I38 - Endocarditis, valve unspecified Status: Acute Assessment and Plan: echocardiogram done on 04/11/2020 showed moderate aortic stenosis and mild moderate to severe mitral valve regurg - cardiology following closely (8) NSTEMI (non-ST elevated myocardial infarction): Code(s): I21.4 - Non-ST elevation (NSTEMI) myocardial infarction Status: Acute Assessment and Plan: Patient has a history of known coronary artery disease, currently NSTEMI given the changes and elevated troponin. Likely related to severe anemia and acute COVID-19 infection - continue supportive care, aspirin and atorvastatin - discuss with cardiology, continue metoprolol, blood pressures have been stable, will add hydralazine and/or ARB after discussing with Card
--- NOTE | 2020-04-14 08:54 | PM.PNCARD ---
Progress Note: A&P Assessment and Plan (1) NSTEMI (non-ST elevated myocardial infarction): Code(s): I21.4 - Non-ST elevation (NSTEMI) myocardial infarction Status: Acute Assessment and Plan: non-STEMI in the setting of severe anemia and active COVID infection in a patient with known coronary disease. At this point supportive care is most appropriate. continue aspirin Continue metoprolol Will check an EKG now given the the ST elevation seen on media monitor (2) COVID-19: Code(s): U07.1 - COVID-19 Status: Acute Assessment and Plan: Supportive care per potato chip sacking machine operator improving. CRP is down (3) CAD (coronary artery disease): Qualifiers: Coronary Disease-Associated Artery/Lesion type: bypass graft [place] vs. transplanted heart: [place] heart Associated angina: without angina Qualified Code(s): I25.810 - Atherosclerosis of coronary artery bypass graft(s) without angina pectoris Code(s): I25.10 - Atherosclerotic heart disease of [place] coronary artery without angina pectoris Status: Chronic Assessment and Plan: as above (4) Symptomatic anemia: Code(s): D64.9 - Anemia, unspecified Status: Acute Assessment and Plan: status post transfusion. Will follow H&H (5) Hypertension associated with diabetes: Code(s): E11.59 - Type 2 diabetes mellitus with other circulatory complications; I10 - Essential (primary) hypertension Status: Acute Assessment and Plan: off pressors. Not hypertensive. continue metoprolol. Can restart some hydralazine if needed + /minus ARB (6) Hyperlipidemia associated with type 2 diabetes mellitus: Code(s): E11.69 - Type 2 diabetes mellitus with other specified complication; E78.5 - Hyperlipidemia, unspecified Status: Acute (7) Valvular heart disease: Code(s): I38 - Endocarditis, valve unspecified Status: Acute Assessment and Plan: echocardiogram showing moderate aortic stenosis and moderate to severe mitral regurgitation. Not significantly worse than baseline. Subjective Date/time seen: 04/14/20 08:54 Interval history: 79yo male here for severe sepsis and acute respiratory failure. Reddy virus positive. Positive troponins Date of service 04/14/2020: Patient remains intubated and sedated. Rhythm is stable.Blood pressure better with metoprolol. Assess some ST elevations on media monitor. Review of Systems Review of Systems: All systems reviewed & are unremarkable except as noted in HPI and below Constitutional: Constitutional: Reports excessive sweating, Reports fatigue, Denies headache(s), Reports lethargy and Reports weakness Eyes: Eyes: Denies blurry vision ENT: Reports Normal hearing present, Denies headache(s), Denies lip swelling and Denies neck pain Cardiovascular: Cardiovascular: Denies chest pain and Reports dyspnea Respiratory: Respiratory: Reports cough and Reports dyspnea Gastrointestinal: Gastrointestinal: Denies abdominal pain Genitourinary: Genitourinary: Denies dysuria Musculoskeletal: Musculoskeletal: Denies neck pain Integumentary/Breasts: Skin/Breast: Denies dry skin Neurologic: Reports Normal hearing present, Denies behavioral changes, Denies headache(s) and Reports weakness Psychiatric: Psychiatric: Denies behavioral changes Endocrine: Endocrine: Reports excessive sweating and Reports fatigue Hematologic/Lymphatic: Hematologic/Lymphatic: Denies easy bleeding Allergic/Immunologic: Allergic/Immunologic: Denies lip swelling Exam Narrative: Exam Narrative: currently intubated and sedated Const: General: no acute distress Resp: Effort & Inspection: normal respiratory effort Cardio: Rate: regular rate Rhythm: regular rhythm Urinary Catheter: Urinary Catheter: patent and draining Skin: General skin exam: normal color Neuro: Other: currently sedated Extrem: General: no edema Object
--- NOTE | 2020-04-14 08:56 | ECG_ITS ---
Measurements Intervals Protection Rate: 76 P: 46 WI: 147 QRS: 0 QRSD: 85 T: -75 QT: 366 QTc: 414 Interpretive Statements SINUS RHYTHM ST-T WAVE ABNORMALITY IN LATERAL LEADS- CONSIDER ISCHEMIA BASELINE ARTIFACT- I, III, AVL, V1-V3 ABNORMAL ECG Electronically Signed On 04-14-2020 11:58:17 CDT by Corky Arevalo D.O.
--- NOTE | 2020-04-14 09:11 | WPDGIPROGNO ---
Progress Note: A&P Additional Plan Patient remains intubated in the ICU. Unable to give any history. Physical exam unchanged. Nursing staff reports no active blood in stool. Patient remains on ventilator. Labs reveal hemoglobin 7.4, hematocrit 22.8, MCV 89. Essentially stable. Decline since admission noted but stable for several days. Impression 1. GI bleeding. No longer active blood loss. Anemia secondary to blood loss at time of admission the hospital. Presumed to have stress ulcer. Plan is to continue proton pump inhibitor. Monitor hemoglobin closely. Transfuse if any further decline in hemoglobin. Endoscopy deferred because of positive COVID status. 2. Respiratory failure. Patient remains on ventilator. Management per retail sales lead. 3. COVID infection. 4. NSTEMI. Subjective Date/time seen: 04/14/20 09:11 Objective Data Vital Signs Vital Signs: Vital Signs - 24 hr 04/13/20 10:00 04/13/20 10:30 04/13/20 11:05 Temperature Pulse Rate 89 100 101 H Respiratory Rate 16 22 H 22 H Blood Pressure 168/70 H Pulse Oximetry 95 04/13/20 11:20 04/13/20 12:00 04/13/20 12:11 Temperature 98.6 F Pulse Rate 101 H 100 93 Respiratory Rate 25 H Blood Pressure 155/69 H Pulse Oximetry 95 97 04/13/20 14:00 04/13/20 14:46 04/13/20 15:40 Temperature Pulse Rate 64 68 80 Respiratory Rate 14 14 Blood Pressure 126/55 L Pulse Oximetry 100 95 04/13/20 16:00 04/13/20 17:23 04/13/20 17:25 Temperature 97.7 F Pulse Rate 80 71 69 Respiratory Rate 14 15 15 Blood Pressure 150/65 H Pulse Oximetry 99 04/13/20 17:37 04/13/20 18:00 04/13/20 20:00 Temperature 96.3 F L Pulse Rate 96 72 60 Respiratory Rate 14 15 Blood Pressure 124/62 138/62 Pulse Oximetry 100 100 100 04/13/20 20:40 04/13/20 22:00 04/13/20 22:56 Temperature Pulse Rate 56 L 53 L 54 L Respiratory Rate 14 Blood Pressure 115/48 L Pulse Oximetry 100 100 100 04/13/20 23:42 04/14/20 00:00 04/14/20 02:00 Temperature 97.4 F L Pulse Rate 55 L 55 L 56 L Respiratory Rate 15 15 14 Blood Pressure 130/49 L 129/48 L Pulse Oximetry 100 100 100 04/14/20 02:06 04/14/20 02:40 04/14/20 03:19 Temperature Pulse Rate 56 L 76 78 Respiratory Rate 15 16 Blood Pressure Pulse Oximetry 100 04/14/20 03:38 04/14/20 04:00 04/14/20 04:01 Temperature 97.6 F Pulse Rate 75 78 78 Respiratory Rate 14 14 16 Blood Pressure Pulse Oximetry 97 96 04/14/20 04:02 04/14/20 04:47 04/14/20 05:35 Temperature Pulse Rate 84 61 55 L Respiratory Rate 15 15 Blood Pressure Pulse Oximetry 100 04/14/20 05:58 04/14/20 05:59 04/14/20 06:00 Temperature Pulse Rate 58 L 57 L 56 L Respiratory Rate 14 15 14 Blood Pressure 141/60 H Pulse Oximetry 100 04/14/20 08:00 Temperature 96.2 F L Pulse Rate 57 L Respiratory Rate 14 Blood Pressure 133/47 L Pulse Oximetry 100 Intake/Output Intake/Output: Intake & Output 04/11/20 04/12/20 04/13/20 04/14/20 23:59 23:59 23:59 23:59 Intake Total 1239 1556 1898 887 Output Total 870 1050 1400 850 Balance 369 506 498 37 Meds/Results Medications: Active Medications Generic Name Dose Route Start Last Admin Trade Name Freq PRN Reason Stop Dose Admin Albuterol 2 puff 04/09/20 20:00 04/10/20 09:01 Proventil Hfa INHALATION Not Given QIDRT [facility] Aspirin 81 mg 04/12/20 08:00 04/14/20 08:04 Aspirin Chewable FEED TUBE 81 mg DAILY@0800 [facility] Administration Atorvastatin Calcium 20 mg 04/13/20 09:00 04/14/20 08:04 Lipitor PO 20 mg DAILY [facility] Administration Dexamethasone Sodium Phosphate 6 mg 04/10/20 09:30 04/14/20 08:05 Decadron 10 Mg/Ml Inj IV PUSH 04/18/20 09:01 6 mg DAILY [facility] Administration Dextrose 12.5 gm 04/09/20 19:42 Dextrose 50% Syringe IV PUSH PRN PRN Hypoglycemia Protocol Glucagon 1 mg 04/09/20 19:42 Glucagon For Inj IM PRN PRN Hypoglycemia
--- NOTE | 2020-04-14 11:13 | PCDIET ---
Nutrition Follow-Up Complete: Nutrition Diagnosis: Inadequate oral intake related to oral intubation as evidenced by NPO status. Nutrition Goal: Patient to meet estimated nutritional needs. Goal met. Patient tolerating Glucerna 1.2 at 60mL/hr goal rate with residuals 200mL and below. Last recorded weight is 72.5 kg which is down from last review. Bowel Motility: +BM today. Labs Reviewed: Hgb (7.7), Hct (23.0), Glu (198), BUN (46), Na (131), Alb (2.7), Jamie Ca (8.44) Meds Noted: Albuterol, Zithromax, Rocephin, Decadron, Fentanyl, Novolog, Levemir, Reglan, Versed, Protonix, Miralax - held today Additional Notes: No documented skin breakdown. Will continue to monitor with same goal. Nutrition Monitoring and Evaluation: Follow up every Friday/Friday. Follow daily in ICU rounds.
[2020-04-14 12:30] LABS: Glucose Point of Care 187 (65-105)
--- NOTE | 2020-04-14 16:48 | PM.IMPN ---
Progress Note: A&P Assessment and Plan (1) Acute respiratory failure: Qualifiers: Respiratory failure complication: unspecified whether with hypoxia or hypercapnia Qualified Code(s): J96.00 - Acute respiratory failure, unspecified whether with hypoxia or hypercapnia Code(s): J96.00 - Acute respiratory failure, unspecified whether with hypoxia or hypercapnia Status: Acute Assessment and Plan: Appears to be secondary to confirmed COVID-19 infection. The patient has received 1 liter of NS in the ER and had pRBC transfusion. He has also received IV lasix in the ER. IV fluids stopped. Patient treated with AIRVO but ultimately required endotracheal intubation and mechanical ventilation. Stable on vent but having trouble weaning sedation. Appreciate intensivsit input. Continue IV antibiotics that were started in the ER. Wean vent as tolerated. (2) Severe sepsis: Code(s): A41.9 - Sepsis, unspecified organism; R65.20 - Severe sepsis without septic shock Status: Acute Assessment and Plan: Present on admission with elevated WBC, elevated lactic, elevated CRP, HoTN and tachycardia. Probably all related to COVID. Still on IV abx Day 6 since PNA can not be completely excluded. Symptoms improving. Continue to monitor blood pressure and urine output. Appreciate rod and tube straightener input. (3) COVID-19: Code(s): U07.1 - COVID-19 Status: Acute Assessment and Plan: As above. Continue droplet isolation, supportive care. Continue Dexamethasone. The patient has had COVID-19 for more than 10 days and does not meet criteria for Remdesivir therapy. Continue bronchodilators. (4) Symptomatic anemia: Code(s): D64.9 - Anemia, unspecified Status: Acute Assessment and Plan: Hgb 6.3 on admission. Patient was transfused 2 units of packed red blood cells. Hemoglobin climbed 10.2 but is now trend back down to 7.4 today. IFOB positive. Remains on Protonix. Continue to monitor closely. Transfuse as necessary. GI following. (5) NSTEMI (non-ST elevated myocardial infarction): Code(s): I21.4 - Non-ST elevation (NSTEMI) myocardial infarction Status: Acute Assessment and Plan: EKG on admission showing ST-T wave changes anterior lateral and high lateral leads. Presumably patient was on aspirin at home although not listed in his home medication list. Repeat EKG now showing ST-T wave changes in the lateral and inferior leads. Trop peaked at 2.06. NSTEMI related to COVID and/or the anemia. Echo as mentioned below. Repeat EKG 04/14 reviewed showing improvement in the ST-T wave changes. Appreciate Cardiology input. Continue ASA, Lipitor. (6) Valvular heart disease: Code(s): I38 - Endocarditis, valve unspecified Status: Acute Assessment and Plan: Echo showing EF 55-60%, Grade II diastolic dysfunction, moderate aortic valve stenosis and moderate to severe MR. May be contributing to his current condition. (7) KAUR (acute kidney injury): Code(s): N17.9 - Acute kidney failure, unspecified Status: Acute Assessment and Plan: Cr 1.2 on admission which is baseline. Cr climbed slowly to 1.6 but back down to baseline now. Not on IV fluids. Acute kidney injury probably ATN and/or dehydration. Urine output better. Continue to monitor. (8) Leukocytosis: Qualifiers: Leukocytosis type: unspecified Qualified Code(s): D72.829 - Elevated white blood cell count, unspecified Code(s): D72.829 - Elevated white blood cell count, unspecified Status: Acute Assessment and Plan: Appears to be secondary to COVID-19 and severe sepsis +/- steroids. WBC elevated but stable in the 14-16K range probably related to the steroids. Continue to monitor CBCs. (9) Hyponatremia: Code(s): E87.1 - Hypo-osmolality and hyponatremia Status: Acute Assessment and Plan: Hyponatremia noted on
[2020-04-14 17:46] LABS: Glucose Point of Care 218 (65-105)
[2020-04-14 21:45] LABS: Glucose Point of Care 263 (65-105)
[2020-04-15] VITALS (21 sets, daily range): BP systolic 124–176; BP diastolic 45–70; PULSE 52–96; RESP 12–18; TEMP 36.6–37.2; O2SAT 90–100
[2020-04-15] MEDS: INSULIN ASPART (*BKC) 100 UNITS/ML SUB-Q (00:03)
[2020-04-15 00:16] LABS: Glucose Point of Care 216 (65-105)
[2020-04-15 04:42] LABS: Alveolar/Arterial O2 Gradient 161.4 mmHg; Base Excess ABG 0.9 mEq/l (+/-2.0); Carboxyhemoglobin 0.2 % THb (0-2.0); Fractional Inspired Oxygen 40 %; HCO3 ABG 24.3 mEq/l (22.0-26.0); Methemoglobin ABG 0.4 %THb (0-1.5); Oxygen Content ABG 11.4 %vol (16.0-22.0); Oxyhemoglobin 94.6 % THb (90.0-100.0); PCO2 ABG 33.8 mmHg (35.0-45.0); PO2 ABG 84.9 mmHg (80.0-100.0); PO2 FiO2 Ratio Arterial Blood 2.12 %; Reduced Hemoglobin 4.8 %THb (0-5.0); Total Hemoglobin 8.5 g/dL (12.0-18.0); pH ABG 7.475 (7.350-7.450)
[2020-04-15 04:43] LABS: Device VENTILATOR; Modified Allen's Test Pass; Site Drawn RIGHT RADIAL
[2020-04-15 04:44] LABS: Arterial Blood Gas PEEP 8 cmH2O; Arterial Blood Gas Tidal Volume 500 ml; Arterial Blood Gas Vent Mode CMV; Arterial Blood Gas Ventilator rate 14 /MIN
[2020-04-15] MEDS: CENTRAL LINE FLUSH 10 ML IV PUSH ×3 (04:59→20:39)
[2020-04-15] MEDS: METOCLOPRAMIDE HCL INJ 10 MG/2 ML VIAL 5 MG IV PUSH (04:59)
[2020-04-15 05:26] LABS: Hematocrit 23.9 % (42.0-52.0); Hemoglobin 7.6 g/dL (14.0-18.0); Mean Corpuscular HGB Conc 31.8 g/dl (32-36); Mean Corpuscular Hemoglobin 28.7 pg (26-34); Mean Corpuscular Volume 90.2 fl (80-100); Mean Platelet Volume 11.3 fl (7.4-10.4); Platelet Count Result 415 k/mm3 (150-375); Red Blood Count 2.65 M/mm3 (4.6-6.20); Red Cell Distribution Width 14.1 % (11.5-14.5); White Blood Count 19.6 K/mm3 (4.5-10.0)
[2020-04-15 05:55] LABS: Lactic Acid Reflex 1.7 mmol/L (0.7-2.1)
[2020-04-15 06:00] LABS: Alanine Aminotransferase 48 U/L (4-50); Albumin Level 2.9 g/dL (3.5-5.1); Alkaline Phosphatase 153 U/L (38-126); Anion Gap 7 mmol/L (8-16); Aspartate Amino Transferase 46 U/L (17-59); Bilirubin,Total 0.4 mg/dL (0.2-1.3); Blood Urea Nitrogen 43 mg/dL (9-20); CRP 1.8 mg/dL (<1.0); Calcium 8.3 mg/dL (8.4-10.2); Carbon Dioxide 28 mmol/L (22-30); Chloride 99 mmol/L (98-107); Estimated CRCL calculation 47 ml/min; Estimated Glomerular Filt Rate > 60; Glucose 218 mg/dL (75-110); Magnesium 2.3 mg/dL (1.6-2.3); Sodium 134 mmol/L (137-145)
[2020-04-15] MEDS: ASPIRIN 81 MG CHEWABLE TABLET FEED TUBE (08:14)
[2020-04-15] MEDS: INSULIN DETEMIR 100 UNITS/ML 24 UNITS SUB-Q (08:14)
[2020-04-15] MEDS: PANTOPRAZOLE SODIUM IV 40 MG VIAL IV PUSH ×2 (08:14→16:27)
[2020-04-15] MEDS: METOPROLOL SUCCINATE EXT REL 50 MG TABCR PO (08:14)
[2020-04-15] MEDS: ATORVASTATIN 20 MG TABLET PO (08:14)
--- NOTE | 2020-04-15 09:03 | WPDGIPROGNO ---
Progress Note: A&P Additional Plan Patient remains on the ventilator. Sedated. Unable to give history. Nursing staff reports good bowel movement. Physical exam deferred patient not seen because of isolation, COVID infection. Labs reveal hemoglobin 7.6, hematocrit 23.9, MCV 90. Stable. Impression 1. GI bleeding. Presumed to be upper GI. Likely stress ulceration. Continue supportive care. Empiric proton pump inhibitor to continue. Monitor hemoglobin. No additional investigation unless active bleeding develops. 2. Resolved ileus. Good bowel movements at this time. Nutrition via NG tube. 3. Respiratory failure. Patient remains on ventilator. With management per food safety officer service. 4. COVID positive infection. 5. Valvular heart disease. 6. Diabetes mellitus Subjective Date/time seen: 04/15/20 09:03 Objective Data Vital Signs Vital Signs: Vital Signs - 24 hr 04/14/20 10:00 04/14/20 11:40 04/14/20 12:00 Temperature 98.1 F Pulse Rate 78 60 94 Respiratory Rate 14 14 Blood Pressure 148/58 H 157/62 H Pulse Oximetry 99 98 93 04/14/20 12:15 04/14/20 12:24 04/14/20 14:00 Temperature Pulse Rate 94 94 61 Respiratory Rate 14 14 14 Blood Pressure 139/51 L Pulse Oximetry 99 04/14/20 15:00 04/14/20 16:00 04/14/20 16:29 Temperature 98.2 F Pulse Rate 86 79 88 Respiratory Rate 13 23 H Blood Pressure 153/67 H Pulse Oximetry 94 94 04/14/20 17:20 04/14/20 18:00 04/14/20 20:00 Temperature 97.2 F L Pulse Rate 60 72 78 Respiratory Rate 16 14 Blood Pressure 124/56 L 169/64 H Pulse Oximetry 100 100 100 04/14/20 20:42 04/14/20 22:00 04/14/20 23:16 Temperature Pulse Rate 78 60 71 Respiratory Rate 14 Blood Pressure 132/47 L Pulse Oximetry 100 100 100 04/15/20 00:00 04/15/20 02:00 04/15/20 02:33 Temperature Pulse Rate 52 L 79 83 Respiratory Rate 14 16 Blood Pressure 132/49 L 171/59 H Pulse Oximetry 100 95 93 04/15/20 04:00 04/15/20 05:00 04/15/20 06:00 Temperature 98.9 F Pulse Rate 82 81 87 Respiratory Rate 14 18 Blood Pressure 176/61 H 155/68 H Pulse Oximetry 96 94 94 04/15/20 08:00 04/15/20 08:11 04/15/20 08:14 Temperature 98.8 F Pulse Rate 82 63 85 Respiratory Rate 16 16 Blood Pressure 152/70 H Pulse Oximetry 95 04/15/20 08:40 Temperature Pulse Rate 74 Respiratory Rate Blood Pressure Pulse Oximetry 98 Intake/Output Intake/Output: Intake & Output 04/12/20 04/13/20 04/14/20 04/15/20 23:59 23:59 23:59 23:59 Intake Total 1556 1898 1818 1014 Output Total 1050 1400 1600 900 Balance 506 498 218 114 Meds/Results Medications: Active Medications Generic Name Dose Route Start Last Admin Trade Name Freq PRN Reason Stop Dose Admin Albuterol 2 puff 04/09/20 20:00 04/10/20 09:01 Proventil Hfa INHALATION Not Given QIDRT TAINA Aspirin 81 mg 04/12/20 08:00 04/15/20 08:14 Aspirin Chewable FEED TUBE 81 mg DAILY@0800 TAINA Administration Atorvastatin Calcium 20 mg 04/13/20 09:00 04/15/20 08:14 Lipitor PO 20 mg DAILY TAINA Administration Dexamethasone Sodium Phosphate 6 mg 04/10/20 09:30 04/15/20 08:14 Decadron 10 Mg/Ml Inj IV PUSH 04/18/20 09:01 6 mg DAILY TAINA Administration Dextrose 12.5 gm 04/09/20 19:42 Dextrose 50% Syringe IV PUSH PRN PRN Hypoglycemia Protocol Glucagon 1 mg 04/09/20 19:42 Glucagon For Inj IM PRN PRN Hypoglycemia Protocol Glucose 15 gm 04/09/20 19:42 Glutose 15 PO PRN PRN Hypoglycemia Protocol Dextrose 1,000 mls @ 100 mls/hr 04/09/20 19:42 Dextrose 5% 1,000 Ml IVPB PRN PRN Hypoglycemia Protocol Midazolam HCl 50 mg in 100 mls @ 4 mls/hr 04/09/20 23:50 04/15/20 00:00 Versed 50 Mg/D5w 100 Ml IV CONT 2 mg/hr .Q25H TAINA 4 mls/hr Titration Protocol 2 MG/HR Fentanyl Citrate 2,500 mcg in 250 mls @ 10 mls/hr 04/09/20 23:50 04/15/20 08:11 Fentanyl
--- NOTE | 2020-04-15 09:14 | PM.PNCARD ---
Progress Note: A&P Assessment and Plan (1) NSTEMI (non-ST elevated myocardial infarction): Code(s): I21.4 - Non-ST elevation (NSTEMI) myocardial infarction Status: Acute Assessment and Plan: non-STEMI in the setting of severe anemia and active COVID infection in a patient with known coronary disease. At this point supportive care is most appropriate. continue aspirin, statin Continue metoprolol (2) COVID-19: Code(s): U07.1 - COVID-19 Status: Acute Assessment and Plan: Supportive care per art education professor (3) CAD (coronary artery disease): Qualifiers: Coronary Disease-Associated Artery/Lesion type: bypass graft [place] vs. transplanted heart: [place] heart Associated angina: without angina Qualified Code(s): I25.810 - Atherosclerosis of coronary artery bypass graft(s) without angina pectoris Code(s): I25.10 - Atherosclerotic heart disease of [place] coronary artery without angina pectoris Status: Chronic Assessment and Plan: as above (4) Symptomatic anemia: Code(s): D64.9 - Anemia, unspecified Status: Acute Assessment and Plan: status post transfusion. Will follow H&H and will need GI workup eventually (5) Hypertension associated with diabetes: Code(s): E11.59 - Type 2 diabetes mellitus with other circulatory complications; I10 - Essential (primary) hypertension Status: Acute Assessment and Plan: continue metoprolol. Can restart some hydralazine if needed + /minus ARB (6) Hyperlipidemia associated with type 2 diabetes mellitus: Code(s): E11.69 - Type 2 diabetes mellitus with other specified complication; E78.5 - Hyperlipidemia, unspecified Status: Acute Assessment and Plan: continue statin (7) Valvular heart disease: Code(s): I38 - Endocarditis, valve unspecified Status: Acute Assessment and Plan: echocardiogram showing moderate aortic stenosis and moderate to severe mitral regurgitation. Not significantly worse than baseline. Subjective Date/time seen: 04/15/20 09:14 Interval history: 79yo male here for severe sepsis and acute respiratory failure. Reddy virus positive. Positive troponins Date of service 04/15/2020: Patient remains intubated and sedated. he is opening his eyes though. Seems to be tracking. Rhythm is stable.Blood pressure better with metoprolol. EKG showed no acute abnormality Review of Systems Review of Systems: All systems reviewed & are unremarkable except as noted in HPI and below Constitutional: Constitutional: Reports excessive sweating, Reports fatigue, Denies headache(s), Reports lethargy and Reports weakness Eyes: Eyes: Denies blurry vision ENT: Reports Normal hearing present, Denies headache(s), Denies lip swelling and Denies neck pain Cardiovascular: Cardiovascular: Denies chest pain and Reports dyspnea Respiratory: Respiratory: Reports cough and Reports dyspnea Gastrointestinal: Gastrointestinal: Denies abdominal pain Genitourinary: Genitourinary: Denies dysuria Musculoskeletal: Musculoskeletal: Denies neck pain Integumentary/Breasts: Skin/Breast: Denies dry skin Neurologic: Reports Normal hearing present, Denies behavioral changes, Denies headache(s) and Reports weakness Psychiatric: Psychiatric: Denies behavioral changes Endocrine: Endocrine: Reports excessive sweating and Reports fatigue Hematologic/Lymphatic: Hematologic/Lymphatic: Denies easy bleeding Allergic/Immunologic: Allergic/Immunologic: Denies lip swelling Exam Narrative: Exam Narrative: currently intubated and sedated Const: General: no acute distress Resp: Effort & Inspection: normal respiratory effort Cardio: Rate: regular rate Rhythm: regular rhythm Urinary Catheter: Urinary Catheter: patent and draining Skin: General skin exam: normal color Neuro: Cranial nerves: Yes Normal hearing present Other: currently faisal
--- NOTE | 2020-04-15 11:02 | PCFNICU ---
ICU Rounding Note: Pt current nutrition is Glucerna 1.2 at 60 ml/hr. Nutrition recommendation:Agree Last recorded weight is [f pt wt kg]kg. Bowel Motility:+BM reported 04/15. Labs Reviewed:Hgb 7.6, Hct 23.9,Na 134,BUN 43,Glu 218 Meds Noted:Levemir,Reglan,Protonix,Fentanyl,Zithromax,Decadron. Additional Notes: Patient remains on mechanical vent. TF at goal rate and tolerating. Possible extubation today, TF will be placed on hold. Following daily in ICU rounds. Assessing/reassessing every Friday/Friday.
--- NOTE | 2020-04-15 11:44 | WPDINTPN ---
Progress Note: A&P Assessment and Plan (1) Acute respiratory failure: Qualifiers: Respiratory failure complication: unspecified whether with hypoxia or hypercapnia Qualified Code(s): J96.00 - Acute respiratory failure, unspecified whether with hypoxia or hypercapnia Code(s): J96.00 - Acute respiratory failure, unspecified whether with hypoxia or hypercapnia Status: Acute Assessment and Plan: patient presented with dyspnea, positive COVID-19, bilateral diffuse infiltrates on the chest x-ray. - intubated on 04/09/2020 - chest x-ray and ABGs reviewed, remains on CMV mode of ventilation, 40% FiO2, 5 of PEEP. He has been placed on SBT trial with pressure support of 10 and a PEEP of 5 and seems to be tolerating well so far. - continue bronchodilators - fevers, hypotension resolved. He is on empiric antibiotic with ceftriaxone azithromycin since . Stop azithromycin today after completion of 5 day course. Continue ceftriaxone for now. - urine and blood cultures are negative - continue fentanyl for sedation. Versed is being weaned off. If needed Precedex drip can be started. daily sedation vacation, maintain RASS of 0 to -2 (2) COVID-19: Code(s): U07.1 - COVID-19 Status: Acute Assessment and Plan: patient positive for COVID-19, 12 days prior to admission - SARS-CoV-2 PCR positive on 04/10/2020 - continue dexamethasone for a total of 10 days until 04/18/2020 - patient was out of the window for Remdesivir - patient will NOT benefit from convalescent plasma - continue droplet, airborne, contact isolation (3) Septic shock: Code(s): A41.9 - Sepsis, unspecified organism; R65.21 - Severe sepsis with septic shock Status: Acute Assessment and Plan: RESOLVED: PATIENT OFF LEVOPHED - received adequate IV fluids - monitor urine output - Lactic acid resolved - urine blood cultures are negative (4) Anemia: Qualifiers: Anemia type: due to chronic kidney disease Chronic kidney disease stage: unspecified stage Qualified Code(s): N18.9 - Chronic kidney disease, unspecified; D63.1 - Anemia in chronic kidney disease Code(s): D64.9 - Anemia, unspecified Status: Acute Assessment and Plan: patient presented with hemoglobin of 6.3 on admission, likely related to GI bleed - received 2 units of packed RBCs, - hemoglobin stable - history of GI bleed, stool for occult blood been ordered - continue PPI IV q.12 hours - appreciate GI evaluation and recommendations. No active intervention at this time because of his critical illness. - continue supportive care (5) Diabetes mellitus: Qualifiers: Diabetes mellitus type: type 2 Diabetes mellitus retirement insulin use: without retirement use Diabetes mellitus complication status: without complication Qualified Code(s): E11.9 - Type 2 diabetes mellitus without complications Code(s): E11.9 - Type 2 diabetes mellitus without complications Status: Chronic Assessment and Plan: patient hyperglycemic, started on Accu-Cheks and sliding scale insulin - increased Levemir To 24 units subcu twice a day. His fingerstick sugars has been in early 200s. He is on steroid which may be the reason for his uncontrolled blood sugar. His oral hypoglycemic agent with glimepiride and metformin is on hold. - continue monitor blood sugars closely (6) DVT prophylaxis: Code(s): Z29.9 - Encounter for prophylactic measures, unspecified Status: Acute Assessment and Plan: SCDs, no chemoprophylaxis given severe anemia and possible GI bleed So far. Will consider to resume subcu heparin for DVT prophylaxis in a day or 2 if H&H remained stable and no evidence of bleeding. (7) Valvular heart disease: Code(s): I38 - Endocarditis, valve unspecified Status: Acute Assessment and Plan: echocardiogram done on 04/11/2020 showed moderate aortic stenosis and m
[2020-04-15] MEDS: FUROSEMIDE INJ 40 MG/4 ML VIAL IV PUSH (12:22)
[2020-04-15 14:12] LABS: Alveolar/Arterial O2 Gradient 172.1 mmHg; Base Excess ABG 5.6 mEq/l (+/-2.0); Fractional Inspired Oxygen 40 %; HCO3 ABG 29.2 mEq/l (22.0-26.0); Oxygen Content ABG 11.5 %vol (16.0-22.0); Oxygen Saturation ABG 95.1 % (95.0-100.0); Oxyhemoglobin 92.2 % THb (90.0-100.0); PCO2 ABG 38.5 mmHg (35.0-45.0); PO2 ABG 68.8 mmHg (80.0-100.0); PO2 FiO2 Ratio Arterial Blood 1.72 %; Total Hemoglobin 8.8 g/dL (12.0-18.0); pH ABG 7.498 (7.350-7.450)
[2020-04-15 14:13] LABS: Arterial Blood Gas PEEP 5 cmH2O; Arterial Blood Gas Pressure Support 5 cmH2O; Arterial Blood Gas Vent Mode SPONTANEOUS; Device VENTILATOR; Modified Allen's Test Pass; Site Drawn RIGHT RADIAL
[2020-04-15 15:31] LABS: Glucose Point of Care 162 (65-105)
[2020-04-15 15:31] LABS: Glucose Point of Care 89 (65-105)
[2020-04-15 15:31] LABS: Glucose Point of Care 100 (65-105)
--- NOTE | 2020-04-15 15:35 | PM.IMPN ---
Progress Note: A&P Assessment and Plan (1) Acute respiratory failure: Qualifiers: Respiratory failure complication: unspecified whether with hypoxia or hypercapnia Qualified Code(s): J96.00 - Acute respiratory failure, unspecified whether with hypoxia or hypercapnia Code(s): J96.00 - Acute respiratory failure, unspecified whether with hypoxia or hypercapnia Status: Acute Assessment and Plan: Appears to be secondary to confirmed COVID-19 infection. Patient treated with AIRVO but ultimately required endotracheal intubation and mechanical ventilation. Able to wean off the vent today to 2l nc. Appreciate intensivsit input. Continue IV antibiotics and Dexamethasone. Start PT/OT (2) Severe sepsis: Code(s): A41.9 - Sepsis, unspecified organism; R65.20 - Severe sepsis without septic shock Status: Acute Assessment and Plan: Present on admission with elevated WBC, elevated lactic, elevated CRP, HoTN and tachycardia. Probably all related to COVID. The patient has received 1 liter of NS in the ER and had pRBC transfusion. He has also received IV lasix in the ER. IV fluids stopped. Still on IV abx Day 7 since PNA can not be completely excluded. Symptoms improving. Continue to monitor blood pressure and urine output. Appreciate sumatra opener input. (3) COVID-19: Code(s): U07.1 - COVID-19 Status: Acute Assessment and Plan: As above. Continue droplet isolation, supportive care. Continue Dexamethasone. The patient has had COVID-19 for more than 10 days and does not meet criteria for Remdesivir therapy. Continue bronchodilators. (4) Symptomatic anemia: Code(s): D64.9 - Anemia, unspecified Status: Acute Assessment and Plan: Hgb 6.3 on admission. Patient was transfused 2 units of packed red blood cells. Hemoglobin climbed 10.2 but is now trend back down to 7.6 today but stable. IFOB positive. Remains on Protonix. Continue to monitor closely. Transfuse as necessary. GI following. (5) NSTEMI (non-ST elevated myocardial infarction): Code(s): I21.4 - Non-ST elevation (NSTEMI) myocardial infarction Status: Acute Assessment and Plan: EKG on admission showing ST-T wave changes anterior lateral and high lateral leads. Presumably patient was on aspirin at home although not listed in his home medication list. Repeat EKG now showing ST-T wave changes in the lateral and inferior leads. Trop peaked at 2.06. NSTEMI related to COVID and/or the anemia. Echo as mentioned below. Repeat EKG 04/14 reviewed showing improvement in the ST-T wave changes. Appreciate Cardiology input. Continue ASA, Lipitor and metoprolol. (6) Valvular heart disease: Code(s): I38 - Endocarditis, valve unspecified Status: Acute Assessment and Plan: Echo showing EF 55-60%, Grade II diastolic dysfunction, moderate aortic valve stenosis and moderate to severe MR. May be contributing to his current condition. Cardiology following (7) KAUR (acute kidney injury): Code(s): N17.9 - Acute kidney failure, unspecified Status: Acute Assessment and Plan: Cr 1.2 on admission which is baseline. Cr climbed slowly to 1.6 but back down to normal now. Not on IV fluids. Acute kidney injury probably ATN and/or dehydration. Continue to monitor. (8) Leukocytosis: Qualifiers: Leukocytosis type: unspecified Qualified Code(s): D72.829 - Elevated white blood cell count, unspecified Code(s): D72.829 - Elevated white blood cell count, unspecified Status: Acute Assessment and Plan: Appears to be secondary to COVID-19 and severe sepsis +/- steroids. WBC elevated but stable in the 14-16K range probably related to the steroids. Continue to monitor CBCs. (9) Hyponatremia: Code(s): E87.1 - Hypo-osmolality and hyponatremia Status: Acute Assessment and Plan: Hyponatremia noted on admission
[2020-04-15] MEDS: hydrALAZINE HCL 20 MG/ML VIAL 10 MG IV PUSH (16:27)
[2020-04-15 18:29] LABS: Glucose Point of Care 85 (65-105)
[2020-04-15] MEDS: DEXTROSE 50% 25 GM/50 ML SYRINGE IV PUSH (23:45)
[2020-04-15 23:55] LABS: Glucose Point of Care 58 (65-105)
[2020-04-15 23:55] LABS: Glucose Point of Care 226 (65-105)
[2020-04-15 23:55] LABS: Glucose Point of Care 79 (65-105)
[2020-04-16] VITALS (11 sets, daily range): BP systolic 136–165; BP diastolic 49–65; PULSE 57–101; RESP 15–20; TEMP 36.4–36.9; O2SAT 90–99
--- NOTE | 2020-04-16 05:39 | PCRCNOTE ---
Patient refused ABG on 04/16/20 @ 04:11.
[2020-04-16] MEDS: DEXTROSE 50% 25 GM/50 ML SYRINGE IV PUSH (06:18)
[2020-04-16] MEDS: CENTRAL LINE FLUSH 10 ML IV PUSH (06:18)
[2020-04-16 06:32] LABS: Glucose Point of Care 62 (65-105)
[2020-04-16] MEDS: PANTOPRAZOLE SODIUM IV 40 MG VIAL IV PUSH ×2 (07:50→17:39)
--- NOTE | 2020-04-16 09:00 | WPDGIPROGNO ---
Progress Note: A&P Assessment and Plan (1) GI bleeding: Code(s): K92.2 - Gastrointestinal hemorrhage, unspecified Status: Acute Assessment and Plan: Patient admitted at with GI blood loss. No additional bleeding described since admission. Hemoglobin stable by with a hemoglobin 7.6, hematocrit 23.9 today. Currently being treated for presumed stress ulceration. Plan to continue PPI therapy. Supportive care. EGD would be prudent at some point. This has been deferred as the patient is been stable with positive COVID status. (2) Symptomatic anemia: Code(s): D64.9 - Anemia, unspecified Status: Acute Assessment and Plan: Anemia currently stable. Transfusions at admission. Plan to transfuse should hemoglobin decline any further. [place] to be stable at its current level. (3) COVID-19: Code(s): U07.1 - COVID-19 Status: Acute (4) Diabetes type 2, controlled: Qualifiers: Diabetes mellitus senior care insulin use: without senior care use Diabetes mellitus complication status: with unspecified complications Qualified Code(s): E11.8 - Type 2 diabetes mellitus with unspecified complications Code(s): E11.9 - Type 2 diabetes mellitus without complications Status: Acute (5) NSTEMI (non-ST elevated myocardial infarction): Code(s): I21.4 - Non-ST elevation (NSTEMI) myocardial infarction Status: Acute (6) Valvular heart disease: Code(s): I38 - Endocarditis, valve unspecified Status: Acute Subjective Date/time seen: 04/16/20 09:00 Patient extubated yesterday. Appears alert comfortable this morning. No obvious signs of any G active GI blood loss. Review of Systems Review of Systems: All systems reviewed & are unremarkable except as noted in HPI and below Exam Narrative: Exam Narrative: Patient alert. Abdomen soft nontender. Extremities without clubbing or edema. Objective Data Vital Signs Vital Signs: Vital Signs - 24 hr 04/15/20 10:00 04/15/20 10:15 04/15/20 11:05 Temperature Pulse Rate 91 91 Respiratory Rate 16 16 Blood Pressure 145/45 H Pulse Oximetry 97 98 04/15/20 11:14 04/15/20 12:00 04/15/20 14:00 Temperature Pulse Rate 96 90 65 Respiratory Rate 12 16 14 Blood Pressure 162/66 H 124/54 L Pulse Oximetry 100 97 04/15/20 14:47 04/15/20 16:00 04/15/20 17:59 Temperature 98 F Pulse Rate 71 76 Respiratory Rate 14 14 Blood Pressure 167/60 H 154/55 H Pulse Oximetry 99 96 96 04/15/20 20:00 04/15/20 22:00 04/16/20 00:00 Temperature Pulse Rate 67 66 67 Respiratory Rate 17 16 15 Blood Pressure 140/51 L 140/48 L 143/49 H Pulse Oximetry 95 90 92 04/16/20 02:00 04/16/20 04:00 04/16/20 06:00 Temperature 98.4 F Pulse Rate 59 L 57 L 60 Respiratory Rate 15 15 18 Blood Pressure 136/51 L 147/51 H 148/58 H Pulse Oximetry 91 93 90 04/16/20 08:00 Temperature 97.8 F Pulse Rate 71 Respiratory Rate 18 Blood Pressure 150/55 H Pulse Oximetry 98 Intake/Output Intake/Output: Intake & Output 04/13/20 04/14/20 04/15/20 04/16/20 23:59 23:59 23:59 23:59 Intake Total 1898 1818 1706 80 Output Total 1400 1600 3200 900 Balance 498 [phone] Meds/Results Medications: Active Medications Generic Name Dose Route Start Last Admin Trade Name Freq PRN Reason Stop Dose Admin Albuterol 2 puff 04/09/20 20:00 04/10/20 09:01 Proventil Hfa INHALATION Not Given QIDRT [facility] Aspirin 81 mg 04/12/20 08:00 04/15/20 08:14 Aspirin Chewable FEED TUBE 81 mg DAILY@0800 TAINA Administration Atorvastatin Calcium 20 mg 04/13/20 09:00 04/15/20 08:14 Lipitor PO 20 mg DAILY TAINA Administration Dexamethasone Sodium Phosphate 6 mg 04/10/20 09:30 04/15/20 08:14 Decadron 10 Mg/Ml Inj IV PUSH 04/18/20 09:01 6 mg DAILY TAINA Administration Dextrose 12.5 gm 04/09/20 19:42 04/16/20 06:18 Dextrose 50% Syringe IV PUSH 12.5 gm PRN PRN Administration Hypoglyc
--- NOTE | 2020-04-16 09:12 | PM.IMPN ---
Progress Note: A&P Assessment and Plan (1) Acute respiratory failure: Qualifiers: Respiratory failure complication: unspecified whether with hypoxia or hypercapnia Qualified Code(s): J96.00 - Acute respiratory failure, unspecified whether with hypoxia or hypercapnia Code(s): J96.00 - Acute respiratory failure, unspecified whether with hypoxia or hypercapnia Status: Acute Assessment and Plan: Appears to be secondary to confirmed COVID-19 infection. Patient treated with AIRVO but ultimately required endotracheal intubation and mechanical ventilation. Able to wean off the vent 04/15/20. Appreciate institutional commodity analyst input. Continue IV antibiotics and Dexamethasone. Continue PT/OT. ST ordered. (2) Severe sepsis: Code(s): A41.9 - Sepsis, unspecified organism; R65.20 - Severe sepsis without septic shock Status: Acute Assessment and Plan: Present on admission with elevated WBC, elevated lactic, elevated CRP, HoTN and tachycardia. Probably all related to COVID. The patient has received 1 liter of NS in the ER and had pRBC transfusion. He has also received IV lasix in the ER. IV fluids stopped. Still on IV abx Day 8 since PNA can not be completely excluded. Symptoms improving. Continue to monitor blood pressure and urine output. Appreciate institutional commodity analyst input. (3) COVID-19: Code(s): U07.1 - COVID-19 Status: Acute Assessment and Plan: As above. Continue droplet isolation, supportive care. Continue Dexamethasone. The patient has had COVID-19 for more than 10 days and does not meet criteria for Remdesivir therapy. Continue bronchodilators. (4) Symptomatic anemia: Code(s): D64.9 - Anemia, unspecified Status: Acute Assessment and Plan: Hgb 6.3 on admission. Patient was transfused 2 units of packed red blood cells. Hemoglobin climbed 10.2 but is now trend back down to 7.6 yesterday but stable. IFOB positive. Remains on Protonix. Continue to monitor closely. Transfuse as necessary. GI following. (5) NSTEMI (non-ST elevated myocardial infarction): Code(s): I21.4 - Non-ST elevation (NSTEMI) myocardial infarction Status: Acute Assessment and Plan: EKG on admission showing ST-T wave changes anterior lateral and high lateral leads. Presumably patient was on aspirin at home although not listed in his home medication list. Repeat EKG now showing ST-T wave changes in the lateral and inferior leads. Trop peaked at 2.06. NSTEMI related to COVID and/or the anemia. Echo as mentioned below. Repeat EKG 04/14 reviewed showing improvement in the ST-T wave changes. Appreciate Cardiology input. Continue ASA, Lipitor and Metoprolol. (6) Valvular heart disease: Code(s): I38 - Endocarditis, valve unspecified Status: Acute Assessment and Plan: Echo showing EF 55-60%, Grade II diastolic dysfunction, moderate aortic valve stenosis and moderate to severe MR. May be contributing to his current condition. Cardiology following (7) KAUR (acute kidney injury): Code(s): N17.9 - Acute kidney failure, unspecified Status: Acute Assessment and Plan: Cr 1.2 on admission which is baseline. Cr climbed slowly to 1.6 but back down to normal now. Not on IV fluids. Acute kidney injury probably ATN and/or dehydration. Continue to monitor. (8) Leukocytosis: Qualifiers: Leukocytosis type: unspecified Qualified Code(s): D72.829 - Elevated white blood cell count, unspecified Code(s): D72.829 - Elevated white blood cell count, unspecified Status: Acute Assessment and Plan: Appears to be secondary to COVID-19 and severe sepsis +/- steroids. WBC elevated probably related to the steroids. Continue to monitor CBCs. (9) Hyponatremia: Code(s): E87.1 - Hypo-osmolality and hyponatremia Status: Acute Assessment and Plan: Hyponatremia noted on admission at 126. Urine Na
--- NOTE | 2020-04-16 09:21 | PM.PNCARD ---
Progress Note: A&P Assessment and Plan (1) NSTEMI (non-ST elevated myocardial infarction): Code(s): I21.4 - Non-ST elevation (NSTEMI) myocardial infarction Status: Acute Assessment and Plan: non-STEMI in the setting of severe anemia and active COVID infection in a patient with known coronary disease. At this point supportive care is most appropriate. continue aspirin, statin Continue metoprolol (2) COVID-19: Code(s): U07.1 - COVID-19 Status: Acute Assessment and Plan: Supportive care per delivery analyst (3) CAD (coronary artery disease): Qualifiers: Coronary Disease-Associated Artery/Lesion type: bypass graft [place] vs. transplanted heart: [place] heart Associated angina: without angina Qualified Code(s): I25.810 - Atherosclerosis of coronary artery bypass graft(s) without angina pectoris Code(s): I25.10 - Atherosclerotic heart disease of [place] coronary artery without angina pectoris Status: Chronic Assessment and Plan: as above (4) Symptomatic anemia: Code(s): D64.9 - Anemia, unspecified Status: Acute Assessment and Plan: status post transfusion. Will follow H&H and will need GI workup eventually (5) Hypertension associated with diabetes: Code(s): E11.59 - Type 2 diabetes mellitus with other circulatory complications; I10 - Essential (primary) hypertension Status: Acute Assessment and Plan: continue metoprolol. he was on hydralazine at home. Will put him on 25 mg p.o. t.i.d. may need to add an ARB (6) Hyperlipidemia associated with type 2 diabetes mellitus: Code(s): E11.69 - Type 2 diabetes mellitus with other specified complication; E78.5 - Hyperlipidemia, unspecified Status: Acute Assessment and Plan: continue statin (7) Valvular heart disease: Code(s): I38 - Endocarditis, valve unspecified Status: Acute Assessment and Plan: echocardiogram showing moderate aortic stenosis and moderate to severe mitral regurgitation. Not significantly worse than baseline. Subjective Date/time seen: 04/16/20 09:21 Interval history: 79yo male here for severe sepsis and acute respiratory failure. Reddy virus positive. Positive troponins Date of service 04/16/2020: Blood pressure is increasing. Extubated. Reportedly bit confused Review of Systems Review of Systems: All systems reviewed & are unremarkable except as noted in HPI and below Constitutional: Constitutional: Reports excessive sweating, Reports fatigue, Denies headache(s), Reports lethargy and Reports weakness Eyes: Eyes: Denies blurry vision ENT: Reports Normal hearing present, Denies headache(s), Denies lip swelling and Denies neck pain Cardiovascular: Cardiovascular: Denies chest pain and Reports dyspnea Respiratory: Respiratory: Reports cough and Reports dyspnea Gastrointestinal: Gastrointestinal: Denies abdominal pain Genitourinary: Genitourinary: Denies dysuria Musculoskeletal: Musculoskeletal: Denies neck pain Integumentary/Breasts: Skin/Breast: Denies dry skin Neurologic: Reports Normal hearing present, Denies behavioral changes, Denies headache(s) and Reports weakness Psychiatric: Psychiatric: Denies behavioral changes Endocrine: Endocrine: Reports excessive sweating and Reports fatigue Hematologic/Lymphatic: Hematologic/Lymphatic: Denies easy bleeding Allergic/Immunologic: Allergic/Immunologic: Denies lip swelling Exam Narrative: Exam Narrative: sitting comfortably in bed Const: General: no acute distress Resp: Effort & Inspection: normal respiratory effort Cardio: Rate: regular rate Rhythm: regular rhythm Urinary Catheter: Urinary Catheter: patent and draining Skin: General skin exam: normal color Neuro: Cranial nerves: Yes Normal hearing present Extrem: General: no edema Objective Data Vital Signs Vital Signs: Vital Signs - 24 hr
[2020-04-16 10:16] LABS: Anion Gap 7 mmol/L (8-16); Blood Urea Nitrogen 37 mg/dL (9-20); Calcium 8.5 mg/dL (8.4-10.2); Carbon Dioxide 28 mmol/L (22-30); Chloride 102 mmol/L (98-107); Estimated CRCL calculation 58 ml/min; Estimated Glomerular Filt Rate > 60; Glucose 76 mg/dL (75-110); Potassium 4.9 mmol/L (3.4-5.0); Sodium 137 mmol/L (137-145)
--- NOTE | 2020-04-16 11:08 | PCNEURO ---
recived report from Emiliano/Jonathon from ICU. [id number]
[2020-04-16] MEDS: ALBUTEROL SULFATE (*SP) AEROSOL 1 PUFF 2 PUFF INHALATION ×3 (11:10→20:56)
--- NOTE | 2020-04-16 11:11 | WPDINTPN ---
Progress Note: A&P Assessment and Plan (1) Acute respiratory failure: Qualifiers: Respiratory failure complication: unspecified whether with hypoxia or hypercapnia Qualified Code(s): J96.00 - Acute respiratory failure, unspecified whether with hypoxia or hypercapnia Code(s): J96.00 - Acute respiratory failure, unspecified whether with hypoxia or hypercapnia Status: Acute Assessment and Plan: patient presented with dyspnea, positive COVID-19, bilateral diffuse infiltrates on the chest x-ray. - intubated on 04/09/2020. Now extubated on 04/15/2020 - currently on 2 L of oxygen. Wean oxygen if tolerated. - continue bronchodilators - fevers, hypotension resolved. He is on empiric antibiotic with ceftriaxone azithromycin since . Stop azithromycin today after completion of 5 day course. Continue ceftriaxone for now for total of 7 days. - urine and blood cultures are negative - Speech and swallow evaluation. Allow diet based on speech and swallow service evaluation. PT OT. Out of bed to chair today. Encourage activity. Encourage deep breathing. (2) COVID-19: Code(s): U07.1 - COVID-19 Status: Acute Assessment and Plan: patient positive for COVID-19, 12 days prior to admission - SARS-CoV-2 PCR positive on 04/10/2020 - continue dexamethasone for a total of 10 days until 04/18/2020 - patient was out of the window for Remdesivir - patient will NOT benefit from convalescent plasma - continue droplet, airborne, contact isolation (3) Septic shock: Code(s): A41.9 - Sepsis, unspecified organism; R65.21 - Severe sepsis with septic shock Status: Acute Assessment and Plan: RESOLVED: PATIENT OFF LEVOPHED - received adequate IV fluids - monitor urine output - Lactic acid resolved - urine blood cultures are negative (4) Anemia: Qualifiers: Anemia type: due to chronic kidney disease Chronic kidney disease stage: unspecified stage Qualified Code(s): N18.9 - Chronic kidney disease, unspecified; D63.1 - Anemia in chronic kidney disease Code(s): D64.9 - Anemia, unspecified Status: Acute Assessment and Plan: patient presented with hemoglobin of 6.3 on admission, likely related to GI bleed - received 2 units of packed RBCs, - hemoglobin stable - history of GI bleed In the past - continue PPI IV q.12 hours - appreciate GI evaluation and recommendations. No active intervention at this time because of his critical illness. - continue supportive care (5) Diabetes mellitus: Qualifiers: Diabetes mellitus type: type 2 Diabetes mellitus snf insulin use: without long term care phlebotomist use Diabetes mellitus complication status: without complication Qualified Code(s): E11.9 - Type 2 diabetes mellitus without complications Code(s): E11.9 - Type 2 diabetes mellitus without complications Status: Chronic Assessment and Plan: patient hyperglycemic, started on Accu-Cheks and sliding scale insulin - currently on Levemir 24 units twice a day. His blood sugar has been on the lower side since he is off tube feed and NPO waiting for his speech and swallow evaluation. Will decrease his dose of Levemir. Continue insulin sliding scale. His oral hypoglycemic agent with glimepiride and metformin is on hold. - continue monitor blood sugars closely (6) DVT prophylaxis: Code(s): Z29.9 - Encounter for prophylactic measures, unspecified Status: Acute Assessment and Plan: SCDs, no chemoprophylaxis given severe anemia and possible GI bleed So far. Will consider to resume subcu heparin for DVT prophylaxis in a day or 2 if H&H remained stable and no evidence of bleeding. (7) Valvular heart disease: Code(s): I38 - Endocarditis, valve unspecified Status: Acute Assessment and Plan: echocardiogram done on 04/11/2020 showed moderate aortic stenosis and mild moderate to severe mitral v
--- NOTE | 2020-04-16 11:25 | PC.NURSE ---
Patient transferred to [facility], report given to Darien CORONA. All belongings sent with patient
--- NOTE | 2020-04-16 11:54 | PC.NURSE ---
pt received to rm 332-1. Is on 3 L NC. Pt has no distress at this time. Used [employer] japanese interpreter (Rob) to converse with pt and his . Pt is MI'KMAQ. [employer] volume was not loud enough for pt to hear. Resident Program Specialist had to speak to and then to .
--- NOTE | 2020-04-16 12:38 | PC.NURSE ---
speech said pt passed swallow eval. Can be regular consistency and thin liquids.
--- NOTE | 2020-04-16 12:55 | PC.NURSE ---
Spoke with Jamie Hamilton to remove Beck 6am 04/17/20.
[2020-04-16 13:06] LABS: Hematocrit 25.6 % (42.0-52.0); Hemoglobin 8.4 g/dL (14.0-18.0); Mean Corpuscular HGB Conc 32.8 g/dl (32-36); Mean Corpuscular Hemoglobin 28.2 pg (26-34); Mean Corpuscular Volume 85.9 fl (80-100); Mean Platelet Volume 11.4 fl (7.4-10.4); Platelet Count Result 348 k/mm3 (150-375); Red Blood Count 2.98 M/mm3 (4.6-6.20); Red Cell Distribution Width 13.9 % (11.5-14.5); White Blood Count 13.8 K/mm3 (4.5-10.0)
--- NOTE | 2020-04-16 13:15 | PCSTNOTE ---
Beside swallow evaluation complete. Please see ST evaluation for details and recommendations.
[2020-04-16 13:50] LABS: Glucose Point of Care 122 (65-105)
[2020-04-16] MEDS: ATORVASTATIN 20 MG TABLET PO (13:51)
[2020-04-16] MEDS: ASPIRIN 81 MG CHEWABLE TABLET FEED TUBE (13:51)
[2020-04-16] MEDS: hydrALAZINE HCL 25 MG TABLET PO ×2 (13:52→17:39)
[2020-04-16] MEDS: METOPROLOL SUCCINATE EXT REL 50 MG TABCR PO (13:52)
[2020-04-16] MEDS: allopurinoL 100 MG TABLET PO (13:53)
--- NOTE | 2020-04-16 17:12 | PC.NURSE ---
Spoke with Dr Uribe about Glucose monitoring for this pt since he could now eat agian. New orders recived. Accuchecks now ACHS and changed from High scale to moderate scale for corrective SSI.
[2020-04-16 17:37] LABS: Glucose Point of Care 147 (65-105)
[2020-04-17] VITALS (12 sets, daily range): BP systolic 128–166; BP diastolic 45–54; PULSE 65–85; RESP 16–18; TEMP 36.5–37.4; O2SAT 91–97
[2020-04-17 04:37] LABS: Glucose Point of Care 177 (65-105)
[2020-04-17 06:40] LABS: Hematocrit 25.9 % (42.0-52.0); Hemoglobin 7.9 g/dL (14.0-18.0); Mean Corpuscular HGB Conc 30.5 g/dl (32-36); Mean Corpuscular Hemoglobin 27.3 pg (26-34); Mean Corpuscular Volume 89.6 fl (80-100); Mean Platelet Volume 11.7 fl (7.4-10.4); Platelet Count Result 303 k/mm3 (150-375); Red Blood Count 2.89 M/mm3 (4.6-6.20); Red Cell Distribution Width 14.2 % (11.5-14.5); White Blood Count 12.6 K/mm3 (4.5-10.0)
[2020-04-17 06:54] LABS: Alanine Aminotransferase 43 U/L (4-50); Albumin Level 2.9 g/dL (3.5-5.1); Alkaline Phosphatase 103 U/L (38-126); Anion Gap 9 mmol/L (8-16); Aspartate Amino Transferase 50 U/L (17-59); Bilirubin,Total 0.6 mg/dL (0.2-1.3); Blood Urea Nitrogen 32 mg/dL (9-20); Calcium 8.3 mg/dL (8.4-10.2); Carbon Dioxide 24 mmol/L (22-30); Chloride 103 mmol/L (98-107); Estimated CRCL calculation 52 ml/min; Estimated Glomerular Filt Rate > 60; Glucose 80 mg/dL (75-110); Magnesium 2.1 mg/dL (1.6-2.3); Phosphorus 4.4 mg/dL (2.5-4.5); Potassium 4.6 mmol/L (3.4-5.0); Sodium 136 mmol/L (137-145)
--- NOTE | 2020-04-17 07:42 | WPDGIPROGNO ---
Progress Note: A&P Additional Plan Patient remains weak. More alert today. No evidence for additional blood loss described. Physical exam deferred today because of active COVID status. Labs reveal hemoglobin 7.9, hematocrit 25.9, MCV 89. Impression 1. Status post GI bleeding. No active bleeding described. Suspect he had an upper GI blood loss. Plan is to continue treatment for presumed ulcer disease. Consider EGD later in the week. Continue monitor hemoglobin closely. Allow diet as tolerated. 2. COVID positive status. Status post pneumonia attributed to COVID. Patient improving slowly. 3 NSTEMI. cardiology following. Patient has underlying atherosclerotic heart disease. Subjective Date/time seen: 04/17/20 07:42 Objective Data Vital Signs Vital Signs: Vital Signs - 24 hr 04/16/20 08:00 04/16/20 12:00 04/16/20 13:52 Temperature 97.8 F 97.5 F L Pulse Rate 71 88 80 Respiratory Rate 18 18 Blood Pressure 150/55 H 165/52 H Pulse Oximetry 98 97 04/16/20 16:00 04/16/20 19:30 04/16/20 20:00 Temperature 97.6 F 98.3 F Pulse Rate 74 73 Respiratory Rate 18 18 20 Blood Pressure 147/65 H 148/51 H Pulse Oximetry 94 94 99 04/16/20 20:54 04/17/20 00:00 04/17/20 01:00 Temperature 98 F Pulse Rate 72 Respiratory Rate 18 Blood Pressure 166/53 H Pulse Oximetry 94 97 97 04/17/20 04:00 Temperature 97.7 F Pulse Rate 75 Respiratory Rate 16 Blood Pressure 160/54 H Pulse Oximetry 94 Intake/Output Intake/Output: Intake & Output 04/14/20 04/15/20 04/16/20 04/17/20 23:59 23:59 23:59 23:59 Intake Total 1818 1706 680 200 Output Total 1600 5650 9919 700 Balance 109 -5534 -803 -118 Meds/Results Medications: Active Medications Generic Name Dose Route Start Last Admin Trade Name Freq PRN Reason Stop Dose Admin Albuterol 2 puff 04/09/20 20:00 04/16/20 20:56 Proventil Hfa INHALATION 2 puff QIDRT TAINA Administration Allopurinol 100 mg 04/16/20 09:45 04/16/20 13:53 Zyloprim PO 100 mg DAILY TAINA Administration Aspirin 81 mg 04/12/20 08:00 04/16/20 13:51 Aspirin Chewable FEED TUBE 81 mg DAILY@0800 TAINA Administration Atorvastatin Calcium 20 mg 04/13/20 09:00 04/16/20 13:51 Lipitor PO 20 mg DAILY TAINA Administration Dexamethasone Sodium Phosphate 6 mg 04/10/20 09:30 04/16/20 09:44 Decadron 10 Mg/Ml Inj IV PUSH 04/18/20 09:01 6 mg DAILY TAINA Administration Dextrose 12.5 gm 04/09/20 19:42 04/16/20 06:18 Dextrose 50% Syringe IV PUSH 12.5 gm PRN PRN Administration Hypoglycemia Protocol Glucagon 1 mg 04/09/20 19:42 Glucagon For Inj IM PRN PRN Hypoglycemia Protocol Glucose 15 gm 04/09/20 19:42 Glutose 15 PO PRN PRN Hypoglycemia Protocol Hydralazine HCl 10 mg 04/15/20 11:52 04/15/20 16:27 Apresoline Hcl Inj IV PUSH 10 mg Q8H PRN Administration Blood Pressure - High Hydralazine HCl 25 mg 04/16/20 09:00 04/16/20 17:39 Apresoline Tablet PO 25 mg TID TAINA Administration Dextrose 1,000 mls @ 100 mls/hr 04/09/20 19:42 Dextrose 5% 1,000 Ml IVPB PRN PRN Hypoglycemia Protocol Ceftriaxone Sodium/Dextrose 1 gm in 50 mls @ 100 mls/hr 04/10/20 15:00 04/16/20 15:30 Rocephin 1 Gm/D5w 50 Ml IVPB Infused Q24H [facility] Infusion Insulin Aspart 3 - 6 units 04/17/20 08:00 Novolog SUB-Q TIDWM [facility] Protocol Insulin Detemir 14 units 04/16/20 21:00 Levemir SUB-Q Q12HR TAINA Metoprolol Succinate 50 mg 04/13/20 11:50 04/16/20 13:52 Toprol Xl PO 50 mg QAM TAINA Administration Ondansetron HCl 4 mg 04/09/20 15:45 Zofran Inj IV PUSH Q4H PRN Nausea Pantoprazole Sodium 40 mg 04/09/20 17:00 04/16/20 17:39 Protonix Iv IV PUSH 40 mg BID TAINA Administration Polyethylene Glycol 17 gm 04/12/20 09:00 04/16/20 13:54 Miralax PO Not Given QAM [facility] Radiology Results: ITS
--- NOTE | 2020-04-17 08:46 | PC.NURSE ---
spoke to Luis this morning using interpretor Shanthi Leahy.He had no pain this moring and he doesnt feel short of breath. I explained to him what i WAS GOING TO BE DOING TODAY. He siad he understood.
[2020-04-17] MEDS: ALBUTEROL SULFATE (*SP) AEROSOL 1 PUFF 2 PUFF INHALATION ×4 (08:53→20:56)
[2020-04-17] MEDS: ASPIRIN 81 MG CHEWABLE TABLET FEED TUBE (09:44)
[2020-04-17] MEDS: allopurinoL 100 MG TABLET PO (09:45)
[2020-04-17] MEDS: ATORVASTATIN 20 MG TABLET PO (09:45)
[2020-04-17] MEDS: hydrALAZINE HCL 25 MG TABLET PO (09:45)
[2020-04-17] MEDS: PANTOPRAZOLE SODIUM IV 40 MG VIAL IV PUSH ×2 (09:45→18:16)
[2020-04-17] MEDS: METOPROLOL SUCCINATE EXT REL 50 MG TABCR PO (09:45)
--- NOTE | 2020-04-17 10:15 | PC.NURSE ---
Pt is up to chair for breakfast. Ate about 50% and drank 120 of coffee.
[2020-04-17 11:52] LABS: Glucose Point of Care 143 (65-105)
--- NOTE | 2020-04-17 11:55 | PM.PNCARD ---
Progress Note: A&P Assessment and Plan (1) NSTEMI (non-ST elevated myocardial infarction): Code(s): I21.4 - Non-ST elevation (NSTEMI) myocardial infarction Status: Acute Assessment and Plan: non-STEMI in the setting of severe anemia and active COVID infection in a patient with known coronary disease. At this point supportive care is most appropriate. continue aspirin, statin Continue metoprolol (2) COVID-19: Code(s): U07.1 - COVID-19 Status: Acute Assessment and Plan: Supportive care per engineering project designer (3) CAD (coronary artery disease): Qualifiers: Coronary Disease-Associated Artery/Lesion type: bypass graft [place] vs. transplanted heart: [place] heart Associated angina: without angina Qualified Code(s): I25.810 - Atherosclerosis of coronary artery bypass graft(s) without angina pectoris Code(s): I25.10 - Atherosclerotic heart disease of [place] coronary artery without angina pectoris Status: Chronic Assessment and Plan: as above (4) Symptomatic anemia: Code(s): D64.9 - Anemia, unspecified Status: Acute Assessment and Plan: status post transfusion. Will follow H&H and will need GI workup eventually (5) Hypertension associated with diabetes: Code(s): E11.59 - Type 2 diabetes mellitus with other circulatory complications; I10 - Essential (primary) hypertension Status: Acute Assessment and Plan: continue metoprolol. he was on hydralazine at home. will increase his hydralazine up to 50 mg p.o. t.i.d. which is his home dose. Also resume his furosemide 20 mg daily. may need to add an ARB (6) Hyperlipidemia associated with type 2 diabetes mellitus: Code(s): E11.69 - Type 2 diabetes mellitus with other specified complication; E78.5 - Hyperlipidemia, unspecified Status: Acute Assessment and Plan: continue statin (7) Valvular heart disease: Code(s): I38 - Endocarditis, valve unspecified Status: Acute Assessment and Plan: echocardiogram showing moderate aortic stenosis and moderate to severe mitral regurgitation. Not significantly worse than baseline. Subjective Date/time seen: 04/17/20 11:55 Interval history: 79yo male here for severe sepsis and acute respiratory failure. Reddy virus positive. Positive troponins Date of service 04/17/2020: Blood pressure is increasing. Extubated. feeling okay. No chest pain Review of Systems Review of Systems: All systems reviewed & are unremarkable except as noted in HPI and below Constitutional: Constitutional: Reports excessive sweating, Reports fatigue, Denies headache(s), Reports lethargy and Reports weakness Eyes: Eyes: Denies blurry vision ENT: Reports Normal hearing present, Denies headache(s), Denies lip swelling and Denies neck pain Cardiovascular: Cardiovascular: Denies chest pain and Reports dyspnea Respiratory: Respiratory: Reports cough and Reports dyspnea Gastrointestinal: Gastrointestinal: Denies abdominal pain Genitourinary: Genitourinary: Denies dysuria Musculoskeletal: Musculoskeletal: Denies neck pain Integumentary/Breasts: Skin/Breast: Denies dry skin Neurologic: Reports Normal hearing present, Denies behavioral changes, Denies headache(s) and Reports weakness Psychiatric: Psychiatric: Denies behavioral changes Endocrine: Endocrine: Reports excessive sweating and Reports fatigue Hematologic/Lymphatic: Hematologic/Lymphatic: Denies easy bleeding Allergic/Immunologic: Allergic/Immunologic: Denies lip swelling Exam Narrative: Exam Narrative: sitting comfortably in bed Const: General: no acute distress Resp: Effort & Inspection: normal respiratory effort Cardio: Rate: regular rate Rhythm: regular rhythm Urinary Catheter: Urinary Catheter: patent and draining Skin: General skin exam: normal color Neuro: Cranial nerves: Yes Normal hearing present Extrem: Gene
[2020-04-17 12:35] LABS: Glucose Point of Care 95 (65-105)
--- NOTE | 2020-04-17 12:50 | PM.IMPN ---
Progress Note: A&P Assessment and Plan (1) Acute respiratory failure: Qualifiers: Respiratory failure complication: unspecified whether with hypoxia or hypercapnia Qualified Code(s): J96.00 - Acute respiratory failure, unspecified whether with hypoxia or hypercapnia Code(s): J96.00 - Acute respiratory failure, unspecified whether with hypoxia or hypercapnia Status: Acute Assessment and Plan: Appears to be secondary to confirmed COVID-19 infection. Patient treated with AIRVO but ultimately required endotracheal intubation and mechanical ventilation. Able to wean off the vent 04/15/20. Now weaned to room air. Continue PT/OT. Home when more ambulatory and okay with others. (2) Severe sepsis: Code(s): A41.9 - Sepsis, unspecified organism; R65.20 - Severe sepsis without septic shock Status: Acute Assessment and Plan: Present on admission with elevated WBC, elevated lactic, elevated CRP, HoTN and tachycardia. Probably all related to COVID. The patient has received 1 liter of NS in the ER and had pRBC transfusion. He has also received IV lasix in the ER. IV fluids stopped. Still on IV Rocephin since PNA can not be completely excluded. Symptoms improving. Off O2. Will stop abx now. (3) COVID-19: Code(s): U07.1 - COVID-19 Status: Acute Assessment and Plan: As above. Continue droplet isolation, supportive care. Continue Dexamethasone for one more day. The patient has had COVID-19 for more than 10 days and does not meet criteria for Remdesivir therapy. Continue bronchodilators. (4) Symptomatic anemia: Code(s): D64.9 - Anemia, unspecified Status: Acute Assessment and Plan: Hgb 6.3 on admission. Patient was transfused 2 units of packed red blood cells. Hemoglobin climbed 10.2 but is now trend back down to 7-8 range but stable. IFOB positive. Remains on Protonix. Continue to monitor closely. Transfuse as necessary. GI following. (5) NSTEMI (non-ST elevated myocardial infarction): Code(s): I21.4 - Non-ST elevation (NSTEMI) myocardial infarction Status: Acute Assessment and Plan: EKG on admission showing ST-T wave changes anterior lateral and high lateral leads. Presumably patient was on aspirin at home although not listed in his home medication list. Repeat EKG now showing ST-T wave changes in the lateral and inferior leads. Trop peaked at 2.06. NSTEMI related to COVID and/or the anemia. Echo as mentioned below. Repeat EKG 04/14 reviewed showing improvement in the ST-T wave changes. Appreciate Cardiology input. Continue ASA, Lipitor and Metoprolol. No plans for ischemic workup at this time. (6) Valvular heart disease: Code(s): I38 - Endocarditis, valve unspecified Status: Acute Assessment and Plan: Echo showing EF 55-60%, Grade II diastolic dysfunction, moderate aortic valve stenosis and moderate to severe MR. May be contributing to his current condition. Cardiology following. No change from baseline. (7) KAUR (acute kidney injury): Code(s): N17.9 - Acute kidney failure, unspecified Status: Acute Assessment and Plan: Cr 1.2 on admission which is baseline. Cr climbed slowly to 1.6 but back down to normal now. Not on IV fluids. Acute kidney injury probably ATN and/or dehydration. Continue to monitor periodically. (8) Leukocytosis: Qualifiers: Leukocytosis type: unspecified Qualified Code(s): D72.829 - Elevated white blood cell count, unspecified Code(s): D72.829 - Elevated white blood cell count, unspecified Status: Acute Assessment and Plan: Appears to be secondary to COVID-19 and severe sepsis +/- steroids. WBC elevated probably related to the steroids. Continue to monitor CBCs periodically. (9) Hyponatremia: Code(s): E87.1 - Hypo-osmolality and hyponatremia Status: Acute Assessment and Plan:
[2020-04-17] MEDS: hydrALAZINE HCL 50 MG TABLET PO ×2 (14:00→18:23)
[2020-04-17 17:54] LABS: Glucose Point of Care 312 (65-105)
[2020-04-17] MEDS: INSULIN ASPART (*BKC) 100 UNITS/ML SUB-Q (18:14)
[2020-04-17 22:19] LABS: Glucose Point of Care 219 (65-105)
[2020-04-18] VITALS (9 sets, daily range): BP systolic 126–152; BP diastolic 42–83; PULSE 71–98; RESP 16–20; TEMP 36.4–36.8; O2SAT 93–100
[2020-04-18] MEDS: ASPIRIN 81 MG CHEWABLE TABLET FEED TUBE (08:23)
[2020-04-18] MEDS: METOPROLOL SUCCINATE EXT REL 50 MG TABCR PO (08:23)
[2020-04-18] MEDS: hydrALAZINE HCL 50 MG TABLET PO ×3 (08:27→17:30)
[2020-04-18] MEDS: allopurinoL 100 MG TABLET PO (08:27)
[2020-04-18] MEDS: ATORVASTATIN 20 MG TABLET PO (08:27)
[2020-04-18] MEDS: PANTOPRAZOLE SODIUM IV 40 MG VIAL IV PUSH ×2 (08:28→17:30)
[2020-04-18] MEDS: polyethylene glycoL 3350 17 GM POWD.PACK PO (08:28)
--- NOTE | 2020-04-18 08:37 | WPDGIPROGNO ---
Progress Note: A&P Assessment and Plan (1) GI bleeding: Code(s): K92.2 - Gastrointestinal hemorrhage, unspecified Status: Acute Assessment and Plan: No bleeding identified since admission to the hospital. Patient remains on empiric treatment for possible ulcer disease. Anticipate elective GI endoscopy when he is stable. Currently this been deferred because of active COVID infection. Continue monitor hemoglobin in the interim. continue proton pump inhibitor therapy. (2) Anemia: Qualifiers: Anemia type: due to chronic kidney disease Chronic kidney disease stage: unspecified stage Qualified Code(s): N18.9 - Chronic kidney disease, unspecified; D63.1 - Anemia in chronic kidney disease Code(s): D64.9 - Anemia, unspecified Status: Acute (3) NSTEMI (non-ST elevated myocardial infarction): Code(s): I21.4 - Non-ST elevation (NSTEMI) myocardial infarction Status: Acute (4) COVID-19: Code(s): U07.1 - COVID-19 Status: Acute (5) Diabetes mellitus: Qualifiers: Diabetes mellitus type: type 2 Diabetes mellitus fci insulin use: without fci use Diabetes mellitus complication status: without complication Qualified Code(s): E11.9 - Type 2 diabetes mellitus without complications Code(s): E11.9 - Type 2 diabetes mellitus without complications Status: Chronic Subjective Date/time seen: 04/18/20 08:37 Patient remains comfortable. No additional bleeding noted at this time. Regaining strength slowly. Review of Systems Review of Systems: All systems reviewed & are unremarkable except as noted in HPI and below Exam Narrative: Exam Narrative: Physical exam deferred today given his positive COVID status. Nursing staff reports no obvious blood loss. Objective Data Vital Signs Vital Signs: Vital Signs - 24 hr 04/17/20 08:53 04/17/20 09:45 04/17/20 10:00 Temperature Pulse Rate 80 65 Respiratory Rate 18 Blood Pressure Pulse Oximetry 92 97 04/17/20 12:00 04/17/20 16:00 04/17/20 19:45 Temperature 98.2 F 99.3 F Pulse Rate 81 80 Respiratory Rate 16 18 18 Blood Pressure 128/45 L 157/47 H Pulse Oximetry 96 97 95 04/17/20 20:00 04/17/20 21:00 04/18/20 00:00 Temperature 97.7 F 97.6 F Pulse Rate 81 84 71 Respiratory Rate 18 18 18 Blood Pressure 156/48 H 142/42 H Pulse Oximetry 95 94 95 04/18/20 04:00 04/18/20 08:23 Temperature 97.6 F Pulse Rate 72 80 Respiratory Rate 18 Blood Pressure 145/51 H Pulse Oximetry 95 Intake/Output Intake/Output: Intake & Output 04/15/20 04/16/20 04/17/20 04/18/20 23:59 23:59 23:59 23:59 Intake Total 1706 680 720 250 Output Total 3200 1625 2200 [facility]1494 -945 -1480 250 Meds/Results Medications: Active Medications Generic Name Dose Route Start Last Admin Trade Name Freq PRN Reason Stop Dose Admin Albuterol 2 puff 04/09/20 20:00 04/17/20 20:56 Proventil Hfa INHALATION 2 puff QIDRT TAINA Administration Allopurinol 100 mg 04/16/20 09:45 04/18/20 08:27 Zyloprim PO 100 mg DAILY TAINA Administration Aspirin 81 mg 04/12/20 08:00 04/18/20 08:23 Aspirin Chewable FEED TUBE 81 mg DAILY@0800 TAINA Administration Atorvastatin Calcium 20 mg 04/13/20 09:00 04/18/20 08:27 Lipitor PO 20 mg DAILY TAINA Administration Dexamethasone Sodium Phosphate 6 mg 04/10/20 09:30 04/18/20 08:27 Decadron 10 Mg/Ml Inj IV PUSH 04/18/20 09:01 6 mg DAILY TAINA Administration Dextrose 12.5 gm 04/09/20 19:42 04/16/20 06:18 Dextrose 50% Syringe IV PUSH 12.5 gm PRN PRN Administration Hypoglycemia Protocol Furosemide 20 mg 04/18/20 09:00 Lasix Tablet PO DAILY TAINA Glucagon 1 mg 04/09/20 19:42 Glucagon For Inj IM PRN PRN Hypoglycemia Protocol Glucose 15 gm 04/09/20 19:42 Glutose 15 PO PRN PRN Hypoglycemia Protocol Hydralazine HCl 10 mg 04/15/20 11:52
[2020-04-18 08:46] LABS: Glucose Point of Care 126 (65-105)
[2020-04-18] MEDS: ALBUTEROL SULFATE (*SP) AEROSOL 1 PUFF 2 PUFF INHALATION ×3 (10:01→20:41)
[2020-04-18] MEDS: FUROSEMIDE 20 MG TABLET PO (10:32)
[2020-04-18] MEDS: INSULIN ASPART (*BKC) 100 UNITS/ML SUB-Q ×3 (12:17→20:59)
--- NOTE | 2020-04-18 12:33 | PCDIET ---
Nutrition Follow-Up Complete: Inadequate oral intake related to oral intubation as evidenced by NPO status. Patient to meet estimated nutritional needs. Goal:Progressing towards goal. Continue goal. Pt current nutrition is DBCC. Nutrition recommendation: Agree, will offer Glucerna BID to help meet needs Last recorded weight is 66.4 kg (down from 72.9kg on assessment) Bowel Motility: Labs Reviewed: Glucose 126 Meds Noted:Miralax, Zofran, Lasix, Lipitor , Albuterol, insulin Additional Notes: Pt had been on EN of Glucerna 1.2 at 60ml/hr. Now extubated and passed MBS and on a DBCC diet. PO intake at 50%. We will send Glucerna BID to help meet needs with wt loss. Following for adequate intake every five days.
[2020-04-18 13:12] LABS: Glucose Point of Care 283 (65-105)
--- NOTE | 2020-04-18 14:51 | PCRCNOTE ---
Window of time for administration has passed. See next scheduled administration.
--- NOTE | 2020-04-18 17:24 | PM.IMPN ---
Progress Note: A&P Assessment and Plan (1) Acute respiratory failure: Qualifiers: Respiratory failure complication: unspecified whether with hypoxia or hypercapnia Qualified Code(s): J96.00 - Acute respiratory failure, unspecified whether with hypoxia or hypercapnia Code(s): J96.00 - Acute respiratory failure, unspecified whether with hypoxia or hypercapnia Status: Acute Assessment and Plan: Appears to be secondary to confirmed COVID-19 infection. Patient treated with AIRVO but ultimately required endotracheal intubation and mechanical ventilation. Able to wean off the vent 04/15/20. . Finish course of dexamethasone and antibiotic. Continue PT/OT. ST ordered. (2) Severe sepsis: Code(s): A41.9 - Sepsis, unspecified organism; R65.20 - Severe sepsis without septic shock Status: Acute Assessment and Plan: Present on admission with elevated WBC, elevated lactic, elevated CRP, HoTN and tachycardia. Probably all related to COVID. The patient has received 1 liter of NS in the ER and had pRBC transfusion. He has also received IV lasix in the ER. IV fluids stopped. finished IV abx Day 8 since PNA can not be completely excluded. Symptoms improved. Continue to monitor blood pressure and urine output. Appreciate cognos administrator input. (3) COVID-19: Code(s): U07.1 - COVID-19 Status: Acute Assessment and Plan: As above. Continue droplet isolation, supportive care. finished 10 d Dexamethasone today. The patient has had COVID-19 for more than 10 days and does not meet criteria for Remdesivir therapy. Continue bronchodilators. (4) Symptomatic anemia: Code(s): D64.9 - Anemia, unspecified Status: Acute Assessment and Plan: Hgb 6.3 on admission. Patient was transfused 2 units of packed red blood cells. Hemoglobin climbed 10.2 but is now trend back down to 7.6 yesterday but stable. IFOB positive. Remains on Protonix. Continue to monitor closely. Transfuse as necessary. GI following.and will do EGD at later date. repeat hgb am (5) NSTEMI (non-ST elevated myocardial infarction): Code(s): I21.4 - Non-ST elevation (NSTEMI) myocardial infarction Status: Acute Assessment and Plan: EKG on admission showing ST-T wave changes anterior lateral and high lateral leads. Presumably patient was on aspirin at home although not listed in his home medication list. Repeat EKG now showing ST-T wave changes in the lateral and inferior leads. Trop peaked at 2.06. NSTEMI related to COVID and/or the anemia. Echo EF 55-60 with pulmonary hypertension of moderate at 50 and moderate but no wall motion abnormalities. Repeat EKG 04/14 reviewed showing improvement in the ST-T wave changes. . Continue ASA, Lipitor and Metoprolol. (6) Valvular heart disease: Code(s): I38 - Endocarditis, valve unspecified Status: Acute Assessment and Plan: Echo showing EF 55-60%, Grade II diastolic dysfunction, moderate aortic valve stenosis and moderate to severe MR. May be contributing to his current condition. Cardiology following (7) KAUR (acute kidney injury): Code(s): N17.9 - Acute kidney failure, unspecified Status: Acute Assessment and Plan: Cr 1.2 on admission which is baseline. Cr climbed slowly to 1.6 but back down to normal now. Not on IV fluids. Acute kidney injury probably ATN and/or dehydration. Continue to monitor. (8) Leukocytosis: Qualifiers: Leukocytosis type: unspecified Qualified Code(s): D72.829 - Elevated white blood cell count, unspecified Code(s): D72.829 - Elevated white blood cell count, unspecified Status: Acute Assessment and Plan: Appears to be secondary to COVID-19 and severe sepsis +/- steroids. WBC elevated probably related to the steroids. Continue to monitor CBCs. (9) Hyponatremia: Code(s): E87.1 - Hypo-osmolality and hyponatremia Status
[2020-04-18 18:03] LABS: Glucose Point of Care 280 (65-105)
[2020-04-18 20:22] LABS: Procalcitonin 0.47 ng/mL (<0.10)
[2020-04-18 20:42] LABS: Glucose Point of Care 274 (65-105)
[2020-04-19] VITALS: BP 146/59; PULSE 74; RESP 16; TEMP 36.4; O2SAT 93
[2020-04-19 04:00] VITALS: BP 131/58; PULSE 77; RESP 16; TEMP 36.5; O2SAT 93
[2020-04-19 06:14] LABS: Basophils Percent Auto 0.1 % (0.2-1.2); Eosinophils Percent Auto 0.3 % (0-4.4); Hematocrit 25.2 % (42.0-52.0); Hemoglobin 7.8 g/dL (14.0-18.0); Immature Granulocyte Absolute 0.09 K/mm3 (0.00-0.031); Immature Granulocyte Percent A 0.8 % (0-0.5); Lymphocytes Absolute Auto 0.59 K/mm3 (0.9-3.2); Lymphocytes Percent Auto 5.6 % (18.3-44.2); Mean Corpuscular Hemoglobin 27.2 pg (26-34); Mean Corpuscular Volume 87.8 fl (80-100); Mean Platelet Volume 10.6 fl (7.4-10.4); Monocytes Percent Auto 9.2 % (2.6-8.5); Neutrophils Absolute Auto 8.9 K/mm3 (1.3-6.7); Nucleated Red Blood Cells Absolute Auto 0.1 K/mm3 (0.0-0.012); Nucleated Red Blood Cells Perc 0.6 % (0.0-0.2); Platelet Count Result 433 k/mm3 (150-375); Red Blood Count 2.87 M/mm3 (4.6-6.20); Red Cell Distribution Width 14.2 % (11.5-14.5); White Blood Count 10.6 K/mm3 (4.5-10.0)
[2020-04-19 06:28] LABS: Alanine Aminotransferase 47 U/L (4-50); Albumin Level 2.9 g/dL (3.5-5.1); Alkaline Phosphatase 107 U/L (38-126); Anion Gap 4 mmol/L (8-16); Aspartate Amino Transferase 39 U/L (17-59); Bilirubin,Total 0.7 mg/dL (0.2-1.3); Blood Urea Nitrogen 31 mg/dL (9-20); CRP 1.8 mg/dL (<1.0); Calcium 8.5 mg/dL (8.4-10.2); Carbon Dioxide 27 mmol/L (22-30); Chloride 106 mmol/L (98-107); Estimated CRCL calculation 43 ml/min; Estimated Glomerular Filt Rate > 60; Glucose 143 mg/dL (75-110); Potassium 4.3 mmol/L (3.4-5.0); Sodium 137 mmol/L (137-145)
[2020-04-19 08:00] VITALS: BP 139/68; PULSE 94; RESP 20; TEMP 36.6; O2SAT 96
[2020-04-19] MEDS: ASPIRIN 81 MG CHEWABLE TABLET FEED TUBE (08:46)
[2020-04-19] MEDS: ATORVASTATIN 20 MG TABLET PO (08:46)
[2020-04-19] MEDS: FUROSEMIDE 20 MG TABLET PO (08:46)
[2020-04-19] MEDS: allopurinoL 100 MG TABLET PO (08:46)
[2020-04-19 08:47] VITALS: PULSE 79
[2020-04-19] MEDS: hydrALAZINE HCL 50 MG TABLET PO (08:47)
[2020-04-19] MEDS: METOPROLOL SUCCINATE EXT REL 50 MG TABCR PO (08:47)
[2020-04-19] MEDS: PANTOPRAZOLE SODIUM IV 40 MG VIAL IV PUSH (08:48)
[2020-04-19] MEDS: polyethylene glycoL 3350 17 GM POWD.PACK PO (08:48)
[2020-04-19 08:50] VITALS: PULSE 79
[2020-04-19 08:59] LABS: Glucose Point of Care 150 (65-105)
[2020-04-19] MEDS: ALBUTEROL SULFATE (*SP) AEROSOL 1 PUFF 2 PUFF INHALATION (09:08)
--- NOTE | 2020-04-19 09:16 | WPDGIPROGNO ---
Progress Note: A&P Assessment and Plan (1) Symptomatic anemia: Code(s): D64.9 - Anemia, unspecified Status: Acute Assessment and Plan: Patient admitted with evidence for GI blood loss. No additional bleeding since admission. Hemoglobin currently stable. Patient now on treatment for presumed ulcer. Plan is to continue proton pump inhibitor. An EGD will be considered at a later day. Current we deferred because of stable hemoglobin, no active bleeding, and positive COVID status. (2) NSTEMI (non-ST elevated myocardial infarction): Code(s): I21.4 - Non-ST elevation (NSTEMI) myocardial infarction Status: Acute (3) COVID-19: Code(s): U07.1 - COVID-19 Status: Acute (4) Pneumonia: Qualifiers: Laterality: bilateral Lung location: unspecified part of lung Pneumonia type: due to unspecified organism Qualified Code(s): J18.9 - Pneumonia, unspecified organism Code(s): J18.9 - Pneumonia, unspecified organism Status: Acute Subjective Date/time seen: 04/19/20 09:16 Patient unchanged. No abdominal pain. Tolerating diet. NO evidence for additional bleeding. Review of Systems Review of Systems: All systems reviewed & are unremarkable except as noted in HPI and below Objective Data Vital Signs Vital Signs: Vital Signs - 24 hr 04/18/20 10:02 04/18/20 12:00 04/18/20 16:00 Temperature 98.2 F 97.9 F Pulse Rate 98 84 Respiratory Rate 20 18 Blood Pressure 126/83 152/56 H Pulse Oximetry 94 98 100 04/18/20 20:00 04/18/20 20:47 04/19/20 00:00 Temperature 97.6 F 97.6 F Pulse Rate 85 80 74 Respiratory Rate 16 20 16 Blood Pressure 128/53 L 146/59 H Pulse Oximetry 97 94 93 04/19/20 04:00 04/19/20 08:47 Temperature 97.7 F Pulse Rate 77 79 Respiratory Rate 16 Blood Pressure 131/58 L Pulse Oximetry 93 Intake/Output Intake/Output: Intake & Output 04/16/20 04/17/20 04/18/20 04/19/20 23:59 23:59 23:59 23:59 Intake Total 541 707 6354 100 Output Total 1625 2200 650 400 Balance -945 -1480 1050 -300 Meds/Results Medications: Active Medications Generic Name Dose Route Start Last Admin Trade Name Freq PRN Reason Stop Dose Admin Albuterol 2 puff 04/09/20 20:00 04/19/20 09:08 Proventil Hfa INHALATION 2 puff QIDRT TAINA Administration Allopurinol 100 mg 04/16/20 09:45 04/19/20 08:46 Zyloprim PO 100 mg DAILY TAINA Administration Aspirin 81 mg 04/12/20 08:00 04/19/20 08:46 Aspirin Chewable FEED TUBE 81 mg DAILY@0800 TAINA Administration Atorvastatin Calcium 20 mg 04/13/20 09:00 04/19/20 08:46 Lipitor PO 20 mg DAILY TAINA Administration Dextrose 12.5 gm 04/09/20 19:42 04/16/20 06:18 Dextrose 50% Syringe IV PUSH 12.5 gm PRN PRN Administration Hypoglycemia Protocol Furosemide 20 mg 04/18/20 09:00 04/19/20 08:46 Lasix Tablet PO 20 mg DAILY TAINA Administration Glucagon 1 mg 04/09/20 19:42 Glucagon For Inj IM PRN PRN Hypoglycemia Protocol Glucose 15 gm 04/09/20 19:42 Glutose 15 PO PRN PRN Hypoglycemia Protocol Hydralazine HCl 10 mg 04/15/20 11:52 04/15/20 16:27 Apresoline Hcl Inj IV PUSH 10 mg Q8H PRN Administration Blood Pressure - High Hydralazine HCl 50 mg 04/17/20 13:00 04/19/20 08:47 Apresoline Tablet PO 50 mg TID TAINA Administration Dextrose 1,000 mls @ 100 mls/hr 04/09/20 19:42 Dextrose 5% 1,000 Ml IVPB PRN PRN Hypoglycemia Protocol Insulin Aspart 3 - 6 units 04/17/20 08:00 04/19/20 08:59 Novolog SUB-Q Not Given [facility] Protocol Metoprolol Succinate 50 mg 04/13/20 11:50 04/19/20 08:47 Toprol Xl PO 50 mg QAM TAINA Administration Ondansetron HCl 4 mg 04/09/20 15:45 Zofran Inj IV PUSH Q4H PRN Nausea Pantoprazole Sodium 40 mg 04/09/20 17:00 04/19/20 08:48 Protonix Iv IV PUSH 40 mg BID TAINA Administration Polyethy
--- NOTE | 2020-04-22 16:43 | PM.DS ---
DS: Admitting Diagnosis Admitting Diagnosis Admitting Diagnosis: Pneumonia, GI bleed, Anemia DS: Discharge Diagnosis Discharge Diagnosis (1) Acute respiratory failure: Qualifiers: Respiratory failure complication: unspecified whether with hypoxia or hypercapnia Qualified Code(s): J96.00 - Acute respiratory failure, unspecified whether with hypoxia or hypercapnia Code(s): J96.00 - Acute respiratory failure, unspecified whether with hypoxia or hypercapnia Status: Acute Assessment and Plan: Appears to be secondary to confirmed COVID-19 infection. Patient treated with AIRVO but ultimately required endotracheal intubation and mechanical ventilation. Able to wean off the vent 04/15/20. . Finish course of dexamethasone and antibiotic. Sat 96% RA at discharge (2) Severe sepsis: Code(s): A41.9 - Sepsis, unspecified organism; R65.20 - Severe sepsis without septic shock Status: Acute Assessment and Plan: Present on admission with elevated WBC, elevated lactic, elevated CRP, HoTN and tachycardia. Probably all related to COVID. The patient has received 1 liter of NS in the ER and had pRBC transfusion. He has also received IV lasix in the ER. IV fluids stopped. finished IV abx Day 8 since PNA can not be completely excluded. Symptoms improved. . (3) COVID-19: Code(s): U07.1 - COVID-19 Status: Acute Assessment and Plan: As above. . finished 10 d Dexamethasone today. The patient has had COVID-19 for more than 10 days and did not meet criteria for Remdesivir therapy. Continued bronchodilators while here (4) Symptomatic anemia: Code(s): D64.9 - Anemia, unspecified Status: Acute Assessment and Plan: Hgb 6.3 on admission. Patient was transfused 2 units of packed red blood cells. Hemoglobin climbed 10.2 but is now trend back down to 7.6 yesterday but stable. IFOB positive. Remains on Protonix. Continue to monitor closely. Transfuse as necessary. GI following.and will do EGD at later date. repeat hgb 7.8 day of discharge (5) NSTEMI (non-ST elevated myocardial infarction): Code(s): I21.4 - Non-ST elevation (NSTEMI) myocardial infarction Status: Acute Assessment and Plan: EKG on admission showing ST-T wave changes anterior lateral and high lateral leads. Presumably patient was on aspirin at home although not listed in his home medication list. Repeat EKG now showing ST-T wave changes in the lateral and inferior leads. Trop peaked at 2.06. NSTEMI related to COVID and/or the anemia. Echo EF 55-60 with pulmonary hypertension of moderate at 50 and moderate but no wall motion abnormalities. Repeat EKG 04/14 reviewed showing improvement in the ST-T wave changes. . Continue ASA, Lipitor and Metoprolol. will follow up with cardiology (6) Valvular heart disease: Code(s): I38 - Endocarditis, valve unspecified Status: Acute Assessment and Plan: Echo showing EF 55-60%, Grade II diastolic dysfunction, moderate aortic valve stenosis and moderate to severe MR. May be contributing to his current condition. Cardiology follow up (7) KAUR (acute kidney injury): Code(s): N17.9 - Acute kidney failure, unspecified Status: Acute Assessment and Plan: Cr 1.2 on admission which is baseline. Cr climbed slowly to 1.6 but back down to normal now. Not on IV fluids. Acute kidney injury probably ATN and/or dehydration. creatinine 1.1 day of d/c (8) Leukocytosis: Qualifiers: Leukocytosis type: unspecified Qualified Code(s): D72.829 - Elevated white blood cell count, unspecified Code(s): D72.829 - Elevated white blood cell count, unspecified Status: Acute Assessment and Plan: Appears to be secondary to COVID-19 and severe sepsis +/- steroids. WBC elevated probably related to the steroids. WBC down to 10.6 day of d/c. (9) Hyponatremia: Code(s): E87.1 - H
== END 2020-04-19 12:45 | disposition home health service (06) | DRG 870 ==
LOC: ANHED 14:35 → ANHICU 16:08 → ANH3MEDSUR 04-16 11:18
PROVIDERS: Family Medicine; Internal Medicine; Internal Medicine Critical Care Medicine; Admitting Provider Internal Medicine; Emergency Provider Family Medicine; PCP Internal Medicine; Visit Provider Internal Medicine
DX: A41.89 Other specified sepsis (principal); U07.1 COVID-19; J96.00 Acute respiratory failure, unspecified whether with hypoxia or hypercapnia; R65.21 Severe sepsis with septic shock; I21.4 Non-ST elevation (NSTEMI) myocardial infarction; J12.89 Other viral pneumonia; E87.1 Hypo-osmolality and hyponatremia; K92.2 Gastrointestinal hemorrhage, unspecified; N17.9 Acute kidney failure, unspecified; I25.810 Atherosclerosis of coronary artery bypass graft(s) without angina pectoris; I38 Endocarditis, valve unspecified; K56.7 Ileus, unspecified; D50.0 Iron deficiency anemia secondary to blood loss (chronic); E11.59 Type 2 diabetes mellitus with other circulatory complications; I10 Essential (primary) hypertension; E11.65 Type 2 diabetes mellitus with hyperglycemia; E11.69 Type 2 diabetes mellitus with other specified complication; E78.00 Pure hypercholesterolemia, unspecified; T38.0X5A Adverse effect of glucocorticoids and synthetic analogues, initial encounter; D72.829 Elevated white blood cell count, unspecified; Z79.84 Long term (current) use of oral hypoglycemic drugs; Z79.899 Other long term (current) drug therapy; Z87.891 Personal history of nicotine dependence; Z95.1 Presence of aortocoronary bypass graft
CPT/HCPCS: 31500; 36415; 36430; 36600; 71045; 80048; 80053; 80076; 82010; 82274; 82375; 82570; 82728; 82805; 83050; 83605; 83615; 83735; 83880; 84100; 84145; 84300; 84484; 85014; 85018; 85025; 85027; 85380; 85610; 86140; 86850; 86900; 86901; 86920; 87040; 87070; 87086; 87205; 87635; 92610; 93005; 93306; 94002; 94003; 94640; 96361; 96374; 97110; 97116; 97161; 97165; 97530; 97535; 99285; A9270; C1751; C9113; C9803; J0131; J0360; J0456; J0692; J0696; J1100; J1815; J1940; J2250; J2765; J3010; J7030; P9016; U0003

== ENCOUNTER 2021-01-18 08:20 | Outpatient (CLI) | payer MEDICARE, SELFPAY ==
--- NOTE | ~2021-01-18 | US_ITS ---
EXAMINATION: US carotid duplex BI DATE: 01/18/2021 09:01 INDICATION: Bilateral carotid stenosis TECHNIQUE: Grayscale, color Doppler, and pulsed Doppler images of the cervical carotid arteries were obtained. The degree of vessel stenosis is placed in one of the following categories: normal, <50%, 5 0-69%, >=70% but less than near-occlusion, near-occlusion, or total occlusion. Note that percent sten osis relative to normal distal artery lumen diameter is indirectly measured from velocity measurement s as described by Zack, et al. Radiology 2003; 229:340-346. Notes: Normal: Peak systolic velocity <125 centimeters/sec and no plaque <50%. Peak systolic velocity <125 ( EDV <40; ICA/CCA PSV ratio <2.0; used these factors only a tandem lesions or low cardiac output or co ntralateral disease) 50-69 %: PSV 125-230 (EDV 40-100; ratio 2-4) >= 70% but less than near occlusion: PSV greater than 230 (EDV > 100; ratio> 4.0) Near Occlusion: PSV that is variable; markedly narrowed lumen Occlusion: Absent flow on color/spectral Doppler and no lumen on polanco scale. COMPARISON: None. FINDINGS: RIGHT: The right common carotid artery (CCA) peak systolic velocity (PSV) is 160 cm/s. The right internal ca rotid artery (ICA) PSV is 247 cm/s. The right ICA end-diastolic velocity (EDV) is 49 cm/s. The right ICA/CCA PSV ratio is 2.1. The external carotid artery (ECA) PSV is 337 cm/s. There is antegrade flow in the right vertebral artery. LEFT: The left CCA PSV is 119 cm/s. The left ICA PSV is 199 cm/s. The left ICA EDV is 44 cm/s. The left ICA /CCA PSV ratio is 1.7. The ECA PSV is 228 cm/s. There is antegrade flow in the left vertebral artery . IMPRESSION: 1. Greater than or equal to 70% stenosis in the right internal carotid artery by sonographic criteria . 2. 50-69% stenosis in the left internal carotid artery by sonographic criteria. Reviewed, dictated and finalized at location B. IMPRESSION: 1. Greater than or equal to 70% stenosis in the right internal carotid artery b y sonographic criteria. 2. 50-69% stenosis in the left internal carotid artery by sonographic criteria.
== END 2021-01-18 08:21 | disposition home or self-care (01) ==
LOC: ANHIMG 08:24
PROVIDERS: PCP Internal Medicine; Visit Provider Internal Medicine Cardiovascular Disease
DX: I65.23 Occlusion and stenosis of bilateral carotid arteries (principal)
CPT/HCPCS: 93880

== ENCOUNTER 2022-04-29 12:55 | Outpatient (CLI) | payer MEDICARE, SELFPAY ==
[2022-04-29 20:50] LABS: Hemoglobin A1C 6.6 % (<5.7)
== END 2022-04-29 12:56 | disposition home or self-care (01) ==
LOC: ANHGOSHLAB 12:57
PROVIDERS: PCP Family Medicine; Visit Provider Family Medicine
DX: E11.9 Type 2 diabetes mellitus without complications (principal)
CPT/HCPCS: 36415; 83036

== ENCOUNTER 2022-11-08 09:08 | Outpatient (CLI) | payer MEDICARE, MEDICAID, SELFPAY ==
--- NOTE | ~2022-11-08 | US_ITS ---
Procedure: Duplex Doppler examination of the bilateral carotids. Indication: Bilateral carotid artery stenosis Technique: Real time, color-flow and pulse wave Doppler examination of the bilateral carotids was performed. Findings: Hodges scale ultrasonography of the right neck demonstrated moderate calcified plaque at the proximal r ight internal carotid artery. There was demonstration of normal color-flow and Doppler waveforms with in the right common, internal and external carotid arteries. The peak systolic velocities in the righ t common, internal and external carotid arteries were demonstrated to be 100 cm/sec, 141 cm/sec and 1 42 cm/sec respectively. The right ICA/CCA ratio was 1.4.The proximal right internal carotid artery de monstrates 60% stenosis relative to the normal distal artery lumen diameter. Hodges scale sonography of the left neck demonstrated large plaque at the proximal left internal caroti d artery. There was demonstration of normal color-flow and wave forms within the left common, interna l and external carotid arteries. The peak systolic velocities in the left common, internal and priming mixture carrier al carotid arteries were demonstrated to be 107cm/sec, 244 cm/sec and 138 cm/sec respectively. The le ft ICA/CCA ratio was 2.3. The proximal left internal carotid artery demonstrates 90% stenosis relativ e to the normal distal artery lumen diameter. There was antegrade flow demonstrated in the bilateral vertebral arteries. Impression: High-grade stenosis at the proximal left internal carotid artery, as detailed above. Moderate stenosis at the proximal right internal carotid artery, as detailed above. Antegrade flow in the bilateral vertebral arteries. Note: The methodology used is an indirect measurement validated against a direct method (such as the NASCET criteria) that compares diameters at the stenosis to the distal ICA. Reviewed, dictated and finalized at location M. Impression: High-grade stenosis at the proximal left internal carotid artery, as detailed a pavel. Moderate stenosis at the proximal right internal carotid artery, as detailed ab ove. Antegrade flow in the bilateral vertebral arteries. Note: The methodology used is an indirect measurement validated against a direct meth od (such as the NASCET criteria) that compares diameters at the stenosis to the distal ICA.
== END 2022-11-08 09:09 | disposition home or self-care (01) ==
PROVIDERS: PCP Family Medicine; Visit Provider Internal Medicine Cardiovascular Disease
DX: I65.23 Occlusion and stenosis of bilateral carotid arteries (principal)
CPT/HCPCS: 93880

== ENCOUNTER 2022-12-06 15:05 | Emergency (ER) | payer MEDICARE, MEDICAID, SELFPAY ==
[2022-12-06] VITALS (14 sets, daily range): BP systolic 124–149; BP diastolic 36–52; PULSE 63–79; RESP 12–19; TEMP 36.1–36.8; O2SAT 97–100
--- NOTE | ~2022-12-06 | XR_ITS ---
EXAMINATION: XR chest 2V DATE: 12/06/2022 19:28 INDICATION: Low blood pressure. TECHNIQUE: Frontal and lateral views of the chest were obtained. COMPARISON: Chest single view 04/15/2020 FINDINGS: The chest demonstrates clear lungs without pneumonia, pleural effusion, or pneumothorax. Th e heart size is normal. Median sternotomy wires and mediastinal surgical clips are seen, likely from prior coronary artery bypass grafting. There are old healed rib fractures bilaterally. IMPRESSION: 1. No acute cardiopulmonary disease. Reviewed, dictated and finalized at location E.
--- NOTE | 2022-12-06 15:09 | ECG_ITS ---
Measurements Intervals [place] Rate: 65 P: 79 UT: 196 QRS: 10 QRSD: 110 T: 80 QT: 380 QTc: 397 Interpretive Statements SINUS RHYTHM NONSPECIFIC ST & T-WAVE ABNORMALITY COMPARED TO PRIOR EKG 04-14-2020: NO SIGNIFICANT CHANGES Electronically Signed On 12-07-2022 12:05:54 CDT by Carlos Zhang M.D.
[2022-12-06 15:41] LABS: Basophils Absolute Auto 0.1 K/mm3 (0.0-0.1); Basophils Percent Auto 0.7 % (0.2-1.2); Eosinophils Absolute Auto 0.3 K/mm3 (0-0.3); Eosinophils Percent Auto 2.8 % (0-4.4); Hematocrit 29.4 % (42.0-52.0); Hemoglobin 9.3 g/dL (14.0-18.0); Immature Granulocyte Absolute 0.04 K/mm3 (0.00-0.031); Immature Granulocyte Percent A 0.4 % (0-0.5); Lymphocytes Absolute Auto 1.24 K/mm3 (0.9-3.2); Lymphocytes Percent Auto 12.5 % (18.3-44.2); Mean Corpuscular HGB Conc 31.6 g/dl (32-36); Mean Corpuscular Hemoglobin 29.9 pg (26-34); Mean Corpuscular Volume 94.5 fl (80-100); Mean Platelet Volume 11.2 fl (7.4-10.4); Monocytes Absolute Auto 0.9 K/mm3 (0.1-0.6); Monocytes Percent Auto 8.6 % (2.6-8.5); Neutrophils Absolute Auto 7.5 K/mm3 (1.3-6.7); Platelet Count Result 169 k/mm3 (150-375); Red Blood Count 3.11 M/mm3 (4.6-6.20); Red Cell Distribution Width 14.6 % (11.5-14.5); White Blood Count 9.9 K/mm3 (4.5-10.0)
[2022-12-06 15:51] LABS: Alanine Aminotransferase 31 U/L (6-50); Albumin Level 4.6 g/dL (3.5-5.1); Alkaline Phosphatase 66 U/L (38-126); Anion Gap 9 mmol/L (8-16); Aspartate Amino Transferase 35 U/L (17-59); Bilirubin,Total 0.4 mg/dL (0.2-1.3); Blood Urea Nitrogen 28 mg/dL (9-20); Calcium 9.6 mg/dL (8.4-10.2); Carbon Dioxide 27 mmol/L (22-30); Chloride 103 mmol/L (98-107); Estimated CRCL calculation 38 ml/min; Estimated Glomerular Filt Rate 53; Glucose 143 mg/dL (65-110); Potassium 4.8 mmol/L (3.4-5.0); Sodium 139 mmol/L (137-145)
[2022-12-06 18:45] LABS: Glucose Point of Care 148 mg/dl (65-105)
--- NOTE | 2022-12-06 19:41 | ED.RECABL ---
HPI - Recheck/Abnormal Lab/Rx General Chief Complaint: Recheck/Abnormal Lab/Rx Stated Complaint: referral for low BP, cartoid blockage Time Seen by Provider: 12/06/22 18:59 History of Present Illness HPI narrative: History obtained through the patient's daughter. This is an 82-year-old male with past history of hypertension, presenting to the emergency department from his primary care doctor's office for generalized weakness and decreased blood pressure. He has complained of generalized weakness for the past 3 days with intermittent lightheadedness. Today, the patient's blood pressure was noted in the 120s systolic where he is typically in the 140s. He was sent for further evaluation. Related Data Home Medications Medication Instructions Recorded Confirmed atorvastatin 20 mg tablet 20 mg PO DAILY 12/06/22 12/06/22 furosemide 20 mg tablet 20 mg PO DAILY 12/06/22 12/06/22 metoprolol succinate 50 mg 50 mg PO DAILY 12/06/22 12/06/22 tablet,extended release 24 hr nitroglycerin 0.4 mg sublingual 0.4 mg sublingual Q5M PRN 12/06/22 12/06/22 tablet Allergies Allergy/AdvReac Type Severity Reaction Status Date / Time No Known Allergies Allergy Verified 12/06/22 15:26 Review of Systems Review of Systems: CONSTITUTIONAL: Denies fever, chills, or sweats. CARDIOVASCULAR: Denies chest pain, palpitations, or edema. RESPIRATORY: Denies cough or dyspnea. GASTROINTESTINAL: Intermittent loose stools with small amounts of blood last occurring 2 weeks ago denies abdominal pain, nausea, vomiting, or diarrhea. GENITOURINARY: Denies dysuria or hematuria. SKIN: Denies rash or itching. MUSCULOSKELETAL: Denies back pain, joint pain, or myalgia. NEUROLOGIC: Denies headache, numbness, dizziness, or weakness. PSYCHIATRIC: Denies anxiety or depression. [facility] Past Medical History Medical History COVID-19 HTN (hypertension) with goal to be determined Hyperlipidemia Iron deficiency anemia Nicotine dependence Syncope and collapse Surgical History Surgical History Hx of CABG Family History Family History Father Motor vehicle accident Social History Social History Smoking status: Former smoker Smoking end date: 08/11/14 Alcohol intake: never Substance use: never Lack of Transportation: No Lack of Food: Never True Current Housing: I Have Housing Concerned About Future Housing: No Difficulty Paying Gas/Electric Bills: No Difficulty Paying for Meds: No Currently Unemployed: No Education: Never Attended/Kindergarten Only Difficulty w/ Childcare or Family Care: No Gender identity (if verbalized by the patient): Male Spiritual care concerns: No Exam Narrative: GENERAL: Well-developed, well-nourished, and in no acute distress. HEAD: Normocephalic, atraumatic. EYES: PERRLA and EOMI. ENT: Nares clear, no rhinorrhea or epistaxis. Mucous membranes moist. Oropharynx without tonsillar hypertrophy exudate or other lesions. NECK: Supple. No adenopathy or masses. no carotid bruits or JVD CHEST: Clear to auscultation. No respiratory distress. No wheezes rales or rhonchi HEART: Regular rate and rhythm. Systolic ejection murmur noted, radiating to the bilateral carotids. Normal peripheral pulses. ABDOMEN: Soft, nontender, nondistended, normal active bowel sounds. EXTREMITIES: Normal range of motion. No edema. SKIN: Warm, dry, no rash. NEURO: No focal deficits. Alert and oriented x3. Strength 5/5 in all extremities, sensation intact bilaterally, cranial nerves II through XII intact PSYCH: Normal mood and affect. Course Course Emergency Course: 21:00 - CBC demonstrates hemoglobin of 9.3 the patient seems to alternate between 9 and 12 regularly. CBC otherwise unremarkable.
[2022-12-06 19:42] LABS: Appearance Urine Clear (Clear); Bilirubin Urine Negative (Negative); Blood Urine Negative (Negative); Color Urine Yellow (Yellow); Glucose Urine UA Negative (Negative); Ketones Urine Negative (Negative); Leukocyte Esterase Ur Negative LEU/UL (Negative); Nitrate Urine Negative (Negative); Protein Urine Negative (Negative); Specific Grav Ur 1.008 (1.001-1.035); Urobilinogen Urine 0.2 mg/dL (<2.0); pH Urine 5.5 (5.0-9.0)
[2022-12-06 19:46] LABS: Add Urine Microscopic? NO
[2022-12-06] MEDS: SODIUM CHLORIDE 0.9% IV 1,000 ML 999 ML IV CONT (20:07)
[2022-12-06 20:35] LABS: Influenza A QL RT-PCR Negative (Negative); Influenza B QL RT-PCR Negative (Negative); SARS-CoV-2 RNA PCR Negative (Negative)
== END 2022-12-06 21:40 | disposition home or self-care (01) ==
PROVIDERS: Emergency Medicine; Emergency Provider Preventive Medicine Aerospace Medicine; PCP Family Medicine
DX: R53.1 Weakness (principal); R03.1 Nonspecific low blood-pressure reading; T46.5X5A Adverse effect of other antihypertensive drugs, initial encounter; I10 Essential (primary) hypertension; Z20.822 Contact with and (suspected) exposure to COVID-19; E78.5 Hyperlipidemia, unspecified; I25.10 Atherosclerotic heart disease of native coronary artery without angina pectoris; D50.9 Iron deficiency anemia, unspecified; Z86.16 Personal history of COVID-19; Z87.891 Personal history of nicotine dependence; Z95.1 Presence of aortocoronary bypass graft; R94.31 Abnormal electrocardiogram [ECG] [EKG]
CPT/HCPCS: 36415; 71046; 80053; 81003; 82948; 85025; 87636; 93005; 96360; 99284; J7030

== ENCOUNTER 2023-03-31 09:17 | Outpatient (NON) | payer MEDICARE, MEDICAID, SELFPAY ==
[2023-03-31 11:51] LABS: IFOB Positive Control Positive; Immunochemical Fecal Occult Bl Positive (N)
[2023-03-31 12:30] LABS: Creatinine Urine 97.1 mg/dL
[2023-03-31 12:42] LABS: MALB Creatinine Ratio < 6.2 mg/g (0-30); Microalbumin Urine Random < 6.0 mg/L (0-16.7)
== END 2023-03-31 09:18 | disposition home or self-care (01) ==
LOC: ANHGOSHLAB 09:18
PROVIDERS: PCP Family Medicine; Visit Provider Family Medicine
DX: E11.9 Type 2 diabetes mellitus without complications (principal); D64.9 Anemia, unspecified
CPT/HCPCS: 82043; 82274

== ENCOUNTER 2023-03-31 13:02 | Emergency (ER) | payer MEDICARE, MEDICAID, SELFPAY ==
--- NOTE | ~2023-03-31 | XR_ITS ---
EXAMINATION: XR chest 2V DATE: 03/31/2023 14:24 INDICATION: Weakness TECHNIQUE: AP and lateral views of the chest are obtained. COMPARISON: 12/06/2022 FINDINGS: There are small pleural effusions. There are minimal airspace opacities of the right lung b ase. No pneumothorax is identified. The heart size is normal. There are healed right-sided rib fractu res. Median sternotomy wires and mediastinal surgical clips are seen, likely from prior coronary [place] ry bypass grafting. There are bridging osteophytes at multiple levels in the spine, consistent with d iffuse idiopathic skeletal hyperostosis (DISH). IMPRESSION: 1. Small pleural effusions. 2. Minimal right basilar airspace opacity, consistent with atelectasis versus pneumonia. Reviewed, dictated and finalized at location A. IMPRESSION: 1. Small pleural effusions. 2. Minimal right basilar airspace opacity, consistent with atelectasis versus p neum[place].
--- NOTE | 2023-03-31 13:22 | ECG_ITS ---
Measurements Intervals [place] Rate: 79 P: 38 [place]: 200 QRS: 12 QRSD: 94 T: 63 QT: 376 QTc: 433 Interpretive Statements SINUS RHYTHM MODERATE ST DEPRESSION [0.05+ mV ST DEPRESSION] COMPARED TO ECG 12/06/2022 15:29:33 NO SIGNIFICANT CHANGES Electronically Signed On 04-01-2023 11:09:41 CDT by Carlos Zhang M.D.
[2023-03-31 13:32] VITALS: BP 144/39; PULSE 76; RESP 18; TEMP 36.3; O2SAT 99
[2023-03-31 13:53] LABS: Basophils Percent Auto 0.7 % (0.2-1.2); Eosinophils Absolute Auto 0.2 K/mm3 (0-0.3); Eosinophils Percent Auto 3.8 % (0-4.4); Hematocrit 29.4 % (42.0-52.0); Hemoglobin 8.5 g/dL (14.0-18.0); Immature Granulocyte Absolute 0.02 K/mm3 (0.00-0.031); Immature Granulocyte Percent A 0.3 % (0-0.5); Lymphocytes Absolute Auto 0.99 K/mm3 (0.9-3.2); Lymphocytes Percent Auto 16.4 % (18.3-44.2); Mean Corpuscular HGB Conc 28.9 g/dl (32-36); Mean Corpuscular Hemoglobin 23.6 pg (26-34); Mean Corpuscular Volume 81.7 fl (80-100); Mean Platelet Volume 11.6 fl (7.4-10.4); Monocytes Absolute Auto 0.7 K/mm3 (0.1-0.6); Monocytes Percent Auto 10.7 % (2.6-8.5); Neutrophils Absolute Auto 4.1 K/mm3 (1.3-6.7); Neutrophils Percent Auto 68.1 % (45.5-73.1); Platelet Count Result 199 k/mm3 (150-375); Red Cell Distribution Width 17.7 % (11.5-14.5); White Blood Count 6.1 K/mm3 (4.5-10.0)
[2023-03-31 14:04] LABS: Alanine Aminotransferase 26 U/L (6-50); Albumin Level 4.5 g/dL (3.5-5.1); Alkaline Phosphatase 67 U/L (38-126); Anion Gap 9 mmol/L (8-16); Aspartate Amino Transferase 33 U/L (17-59); Bilirubin,Total 0.4 mg/dL (0.2-1.3); Blood Urea Nitrogen 24 mg/dL (9-20); Calcium 8.8 mg/dL (8.4-10.2); Carbon Dioxide 26 mmol/L (22-30); Chloride 100 mmol/L (98-107); Estimated Glomerular Filt Rate 58; Glucose 286 mg/dL (65-110); Sodium 135 mmol/L (137-145)
[2023-03-31 14:15] LABS: Anisocytosis 1+ (NORMAL); Basophilic Stippling 1+ (NORMAL); Hypochromasia 2+ (NORMAL); Platelet Estimate Adequate (Adequate); Schistocytes None Seen (NORMAL)
[2023-03-31 14:16] LABS: Ovalocytes 1+ (NORMAL)
[2023-03-31 15:58] LABS: Appearance Urine Clear (Clear); Bilirubin Urine Negative (Negative); Blood Urine Negative (Negative); Color Urine Yellow (Yellow); Glucose Urine UA 1+ mg/dL (Negative); Ketones Urine Negative (Negative); Leukocyte Esterase Ur Negative LEU/UL (Negative); Nitrate Urine Negative (Negative); Protein Urine Negative (Negative); Specific Grav Ur 1.008 (1.001-1.035); Urobilinogen Urine 0.2 mg/dL (<2.0); pH Urine 6.5 (5.0-9.0)
[2023-03-31 16:02] LABS: Add Urine Microscopic? NO
--- NOTE | 2023-03-31 16:41 | ED.GENADULT ---
HPI - General Adult General Chief complaint: Recheck/Abnormal Lab/Rx Stated complaint: low blood count/low bp Time Seen by Provider: 03/31/23 15:05 History of Present Illness HPI narrative: Patient is an 82-year-old male who presents ER with low hemoglobin. He had outpatient lab work performed and it showed a low hemoglobin and he was told to come to the ER. He is having no chest pain or chest pressure. Denies any dark black stools other than the discoloration from his iron. He is on no blood thinning medications. Reports history of low hemoglobin in the past. Denies fevers or chills or sweats. No syncope. No dizziness. Patient does report that for several months he has had some exertional dyspnea but is not significantly changed. Related Data Home Medications Medication Instructions Recorded Confirmed metoprolol succinate 50 mg 50 mg PO DAILY 12/06/22 03/24/23 tablet,extended release 24 hr nitroglycerin 0.4 mg sublingual 0.4 mg sublingual Q5M PRN 12/06/22 03/24/23 tablet Allergies Allergy/AdvReac Type Severity Reaction Status Date / Time No Known Allergies Allergy Verified 03/24/23 09:08 Review of Systems Review of Systems: All systems reviewed & are unremarkable except as noted in HPI and below Constitutional: Constitutional: Denies chills, Denies fatigue and Denies fever(s) ENT: Denies nasal congestion and Denies sore throat Cardiovascular: Cardiovascular: Denies chest pain, Denies rapid heart rate and Denies radiating jaw, neck or arm pain Respiratory: Respiratory: Denies cough and Denies dyspnea Gastrointestinal: Gastrointestinal: Denies abdominal pain, Denies heartburn, Denies nausea and Denies vomiting Neurologic: Denies syncope, Denies focal weakness and Denies numbness [facility] Past Medical History Medical History COVID-19 HTN (hypertension) with goal to be determined Hyperlipidemia Iron deficiency anemia Nicotine dependence Syncope and collapse Surgical History Surgical History Hx of CABG Family History Family History Father Motor vehicle accident Social History Social History (Reviewed 03/24/23 @ 09:08 by LAURYN Garcia Smoking status: Former smoker Smoking end date: 08/11/14 Alcohol intake: never Substance use: never Lack of Transportation: No Lack of Food: Never True Current Housing: I Have Housing Concerned About Future Housing: No Difficulty Paying Gas/Electric Bills: No Difficulty Paying for Meds: No Currently Unemployed: No Education: Never Attended/Kindergarten Only Difficulty w/ Childcare or Family Care: No Gender identity (if verbalized by the patient): Male Spiritual care concerns: No Exam Narrative: GENERAL: Well-appearing, well-nourished, and in no acute distress. HEAD: Normocephalic, atraumatic. ENT: Mucous membranes moist. NECK: Supple. CHEST: Clear to auscultation. No respiratory distress. HEART: Regular rate and rhythm. Normal peripheral pulses. ABDOMEN: Soft, nontender, nondistended. Faintly positive occult blood in stool. EXTREMITIES: Normal range of motion. No edema. SKIN: Warm, dry, no rash. NEURO: N Alert and oriented x3. PSYCH: Normal mood and affect. Course Course Emergency Course: Patient resting comfortably. Discussed with patient and family member that there may be slow loss of blood in his stool however his hemoglobin has remained stable. It is felt appropriate for him to have outpatient follow-up with a GI physician to have an EGD performed. He will be started on a twice daily PPI. Vital Signs Vital signs: Vital Signs Temperature 97.4 F L 03/31/23 13:32 Pulse Rate 76 03/31/23 13:32 Respiratory Rate 18 03/31/23 13:32 Blood Pressure 144/39 H 03/31/23 13:32 Pulse Oximetry 99 03/31/23 13:32 Oxygen Delivery Room
[2023-03-31 17:34] VITALS: BP 144/81; PULSE 75; RESP 15; O2SAT 99
== END 2023-03-31 17:35 | disposition home or self-care (01) ==
PROVIDERS: Emergency Provider Emergency Medicine; PCP Family Medicine
DX: K92.2 Gastrointestinal hemorrhage, unspecified (principal); E78.5 Hyperlipidemia, unspecified; I10 Essential (primary) hypertension; D50.9 Iron deficiency anemia, unspecified; Z95.1 Presence of aortocoronary bypass graft; Z86.16 Personal history of COVID-19; Z87.891 Personal history of nicotine dependence
CPT/HCPCS: 36415; 71046; 80053; 81003; 82043; 85025; 86850; 86900; 86901; 93005; 99283

== ENCOUNTER 2023-05-02 12:36 | Outpatient (CLI) | payer MEDICARE, MEDICAID, SELFPAY ==
--- NOTE | 2023-05-02 12:42 | ECHO_ITS ---
Patient Info Name: Luis Rose Age: 82 years : 1940 Gender: Male Ht: 68 in Wt: 154 lbs BSA: 1.84 m2 HR: 91 bpm BP: 143 / 67 mmHg Heart Rhythm: Sinus Rhythm Technical Quality: Fair Exam Date: 05/02/2023 12:55 PM Exam Location: [facility] Patient Status: Outpatient Admit Date: 05/02/2023 Staff Ordering Physician: Laron Flores DO Air Analysis Technician: Soco Gutierrez RDCS Attending Provider: Laron Flores DO Referring Physician: Mark ELLISON; Exam Type: CA echo doppler color flow Study Info Indications R06.09 - Other forms of dyspnea Complete two-dimensional, color flow and Doppler transthoracic echocardiogram is performed. Strain analysis performed. Summary 1. Complete two-dimensional, color flow and Doppler transthoracic echocardiogram is performed. 2. Moderate concentric left ventricular hypertrophy with vigorous systolic function and grade 1 diastolic noncompliance. 3. Left atrial dilation. 4. Mild to moderate MR. 5. Moderate to severe aortic valve stenosis. Left Ventricle Left ventricular chamber dimension is normal. Left ventricular systolic function is normal, estimated at 60-65%. There is moderate concentric increased left ventricular wall thickness. The left ventricular diastolic function is grade I diastolic dysfunction. Right Ventricle Right ventricular chamber dimension is normal. Left Atria Left atrial chamber dimension is moderately enlarged. Right Atria Right atrial chamber dimension is mildly enlarged. Aortic Valve The aortic valve is trileaflet. There is moderate aortic valve sclerosis. There is moderate to severe aortic valve stenosis. Pulmonic Valve The pulmonic valve is not well visualized. Mitral Valve The mitral valve has normal leaflets. There is mild to moderate mitral valve regurgitation. The mitral valve annulus is moderately calcified. Tricuspid Valve The tricuspid valve leaflets are normal. Pericardium/Pleural The pericardium appears normal. Aorta The aortic root size at the sinus of Valsalva is normal. Report Signatures
== END 2023-05-02 12:37 | disposition home or self-care (01) ==
LOC: ANHCARD 12:37
PROVIDERS: PCP Family Medicine; Visit Provider Family Medicine
DX: R06.09 Other forms of dyspnea (principal); I35.0 Nonrheumatic aortic (valve) stenosis
CPT/HCPCS: 93306

== ENCOUNTER 2023-05-03 16:29 | Inpatient (IN) | payer MEDICARE, MEDICAID, SELFPAY ==
[2023-05-03] VITALS (109 sets, daily range): BP systolic 107–165; BP diastolic 42–106; PULSE 86–126; RESP 15–33; TEMP 36.4–36.7; O2SAT 89–100; BMI 24.7
--- NOTE | ~2023-05-03 | CT_ITS ---
EXAMINATION: CTA chest PE protocol DATE: 05/03/2023 18:20 INDICATION: SOB TECHNIQUE: Computed tomography angiography (CTA) of the chest was performed with 100 mL Omnipaque-350 intravenous contrast timed to evaluate the pulmonary arteries. Coronal maximum intensity projection 3D-reconstructions were created by the technologist. The dose-length product (DLP) was 457.22 mGy-cm. Automated exposure control and iterative reconstruction technique were employed. COMPARISON: X-ray chest, 03/31/2023. FINDINGS: Lung parenchyma and airways: Bilateral volume loss. Bibasilar atelectasis. Clear airways. Interstitia l edema. Motion artifact. Pleura: Large bilateral pleural fluid collections. Thoracic inlet, axillae and chest wall: Unremarkable. Thoracic aorta: Mild ectasia. Moderate arch calcification. Mediastinum: Normal. Heart and pericardium: Mitral and aortic calcification. Mild cardiomegaly. No pericardial effusion. Coronary artery calcifications: Moderate. Upper abdomen: No significant finding. Bones: No acute osseous finding. Pulmonary arteries: Study quality: Limited by significant motion artifact in the lower lungs. No cent ral or occlusive segmental pulmonary emboli detected. IMPRESSION: Study limited by significant motion artifact. No CT evidence of acute central or occlusive segmental pulmonary embolus. Large bilateral pleural effusions. Interstitial edema. Reviewed, dictated and finalized at location K. IMPRESSION: Study limited by significant motion artifact. No CT evidence of acute central o r occlusive segmental pulmonary embolus. Large bilateral pleural effusions. Interstitial edema.
--- NOTE | 2023-05-03 16:48 | ECG_ITS ---
Measurements Intervals [place] Rate: 117 P: 16 [place]: 170 QRS: 5 QRSD: 107 T: 187 QT: 262 QTc: 366 Interpretive Statements SINUS TACHYCARDIA ST-T WAVE ABNORMALITY IN DIFFUSE LEAD- CONSIDER ISCHEMIA BASELINE WANDER- I, II, AVR, AVL, AVF, V4-V6 ABNORMAL ECG COMPARED TO ECG 03/31/2023 13:38:12 [address]IA NOW PRESENT ST-T WAVE ABNORMALITY NOW PRESENT Electronically Signed On 05-03-2023 18:11:15 CDT by Corky Arevalo D.O.
--- NOTE | 2023-05-03 16:52 | ED.ABDPAIN ---
HPI - Abdominal Pain General Chief Complaint: Weakness Stated Complaint: Pain medial torso and weak History of Present Illness HPI narrative: 82-year-old male presented ED for evaluation of chest pain has been going on for the past 2 days. Patient does have a history of open heart surgery approximately 20 years ago. Patient does follow-up with Dr. Thornton. Patient has history of coronary disease and valvular disease. Patient was going to have a colonoscopy by Dr. Hwang and was told to stop taking his Lasix approximately 2 days ago. Upon arrival to the ED patient was tachycardic, hypoxic and hypertensive. Patient's initial EKG showed significant changes that were concerning for STEMI. Case was discussed with Dr. Zhang and while there were signs of ischemia she did not feel that this patient needed to go to the Optician Manager. Related Data Home Medications Medication Instructions Recorded Confirmed nitroglycerin 0.4 mg sublingual 0.4 mg sublingual Q5M PRN Chest 12/06/22 04/24/23 tablet Pain Allergies Allergy/AdvReac Type Severity Reaction Status Date / Time No Known Allergies Allergy Verified 05/03/23 16:37 Review of Systems Review of Systems: All systems reviewed & are unremarkable except as noted in HPI and below PMFSH Past Medical History Medical History COVID-19 HTN (hypertension) with goal to be determined Hyperlipidemia Iron deficiency anemia Nicotine dependence Syncope and collapse Surgical History Surgical History Hx of CABG Family History Family History Father Motor vehicle accident Social History Social History Smoking status: Former smoker Tobacco type: cigarettes Smoking end date: 08/11/14 Alcohol intake: former Substance use: never Substance use type: does not use Lack of Transportation: No Lack of Food: Never True Current Housing: I Have Housing Concerned About Future Housing: No Difficulty Paying Gas/Electric Bills: No Difficulty Paying for Meds: No Currently Unemployed: No Education: Never Attended/Kindergarten Only Difficulty w/ Childcare or Family Care: No Living arrangements: with family Gender identity (if verbalized by the patient): Male Spiritual care concerns: No Exam Narrative: APPEARANCE: Well appearing, no pain, no distress, well-nourished. HEAD: normocephalic, atraumatic. EYES: PERRLA/EOMI, conjunctivae clear. NOSE: Normal no drainage EARS:TMS clear with good light reflex. THROAT: Pharynx clear, no exudate. NECK: Supple. No adenopathy, no masses. RESPIRATORY: Rhonchi and wheezing bilaterally CARDIOVASCULAR: Tachycardia ABDOMINAL: Soft, nontender, nondistended, normal bowel sounds MUSCULOSKELETAL: Moves all extremities. Strength/ROM intact, No edema, No calf tenderness. NEURO: Alert. Cranial nerves II through XII intact. Grossly intact SKIN: Warm, dry. Normal Color Course Course Emergency Course: 82-year-old male presented the ED for evaluation of shortness of breath and chest pain. Patient was tachycardic and hypertensive upon arrival. Patient was treated with Lopressor and nitro and states that his chest pain resolved. Patient initial EKG had significant ST elevations and depressions concerning for STEMI. I discussed case with cardiology and they did not feel this was a STEMI. Patient's initial troponin was elevated at 0.059. Patient's BNP was elevated at 3280. Patient's CTA showed no evidence of pulmonary embolism but did show significant pleural effusions. On reexamination after CT scan patient did have worsening shortness of breath but this was once again treated with nitro and has shortness of breath resolved, nitro placed was paced at that time. At that time patient was also having some wheeze and patient was
--- NOTE | 2023-05-03 16:59 | ECG_ITS ---
Measurements Intervals [place] Rate: 124 P: 116 [place]: 173 QRS: 1 QRSD: 105 T: 188 QT: 253 QTc: 364 Interpretive Statements SINUS TACHYCARDIA ST-T WAVE ABNORMALITY IN DIFFUSE LEADS- CONSIDER ISCHEMIA BASELINE WANDER- III, AVL, AVF, V2, V5-V6 ABNORMAL ECG COMPARED TO ECG 05/03/2023 16:48:02 NO SIGNIFICANT CHANGES Electronically Signed On 05-03-2023 18:12:16 CDT by Corky Arevalo D.O.
[2023-05-03] MEDS: ASPIRIN 81 MG CHEWABLE TABLET 324 MG PO (17:00)
[2023-05-03] MEDS: NITROGLYCERIN SL 0.4 MG TABLET SUBLINGUAL (17:00)
[2023-05-03 17:03] LABS: Basophils Absolute Auto 0.1 K/mm3 (0.0-0.1); Basophils Percent Auto 0.8 % (0.2-1.2); Eosinophils Absolute Auto 0.1 K/mm3 (0-0.3); Eosinophils Percent Auto 0.6 % (0-4.4); Hematocrit 30.2 % (42.0-52.0); Hemoglobin 8.5 g/dL (14.0-18.0); Immature Granulocyte Absolute 0.03 K/mm3 (0.00-0.031); Immature Granulocyte Percent A 0.3 % (0-0.5); Lymphocytes Absolute Auto 1.17 K/mm3 (0.9-3.2); Lymphocytes Percent Auto 11.6 % (18.3-44.2); Mean Corpuscular HGB Conc 28.1 g/dl (32-36); Mean Corpuscular Hemoglobin 22.4 pg (26-34); Mean Corpuscular Volume 79.7 fl (80-100); Mean Platelet Volume 11.4 fl (7.4-10.4); Monocytes Absolute Auto 0.8 K/mm3 (0.1-0.6); Monocytes Percent Auto 8.2 % (2.6-8.5); Neutrophils Absolute Auto 7.9 K/mm3 (1.3-6.7); Neutrophils Percent Auto 78.5 % (45.5-73.1); Platelet Count Result 294 k/mm3 (150-375); Red Blood Count 3.79 M/mm3 (4.6-6.20); Red Cell Distribution Width 16.4 % (11.5-14.5); White Blood Count 10.1 K/mm3 (4.5-10.0)
[2023-05-03] MEDS: METOPROLOL TARTRATE INJ 5 MG/5 ML VIAL IV PUSH (17:07)
[2023-05-03 17:11] LABS: Anisocytosis 1+ (NORMAL); Hypochromasia 1+ (NORMAL); Ovalocytes 1+ (NORMAL); Platelet Estimate Adequate (Adequate)
[2023-05-03 17:12] LABS: Schistocytes None Seen (NORMAL)
[2023-05-03 17:13] LABS: Alanine Aminotransferase 23 U/L (6-50); Albumin Level 4.8 g/dL (3.5-5.1); Alkaline Phosphatase 74 U/L (38-126); Anion Gap 16 mmol/L (8-16); Aspartate Amino Transferase 34 U/L (17-59); Bilirubin,Total 0.5 mg/dL (0.2-1.3); Blood Urea Nitrogen 22 mg/dL (9-20); Calcium 9.1 mg/dL (8.4-10.2); Carbon Dioxide 19 mmol/L (22-30); Chloride 98 mmol/L (98-107); Estimated CRCL calculation 32 ml/min; Estimated Glomerular Filt Rate 48; Glucose 269 mg/dL (65-110); Potassium 4.3 mmol/L (3.4-5.0); Sodium 133 mmol/L (137-145)
[2023-05-03 17:42] LABS: NT Pro B Type Natriuretic Pept 3280 pg/mL (19.9-100); Troponin I 0.059 ng/mL (0.000-0.034)
[2023-05-03] MEDS: NITROGLYCERIN OINTMENT 1 INCH DOSE TRANSDERM (18:02)
[2023-05-03] MEDS: FUROSEMIDE INJ 40 MG/4 ML VIAL IV PUSH (18:14)
--- NOTE | 2023-05-03 18:17 | PC.NURSE ---
PT reporting a return of severe CP in the middle of his chest. Pt sounds wet with his breathing. Sublingual nitro administered
[2023-05-03] MEDS: ALBUTEROL SULFATE NEB 2.5 MG/3 ML INH INHALATION ×3 (18:27→20:40)
--- NOTE | 2023-05-03 18:33 | ECG_ITS ---
Measurements Intervals [place] Rate: 101 P: -13 [place]: 152 QRS: 10 QRSD: 102 T: 105 QT: 370 QTc: 482 Interpretive Statements SINUS TACHYCARDIA ST-T WAVE ABNORMALITY IN ANTEROLAT/HIGH LAT LEADS- CONSIDER ISCHEMIA ABNORMAL ECG COMPARED TO ECG 05/03/2023 17:03:22 NO SIGNIFICANT CHANGES Electronically Signed On 05-04-2023 6:56:05 CDT by Corky Arevalo D.O.
[2023-05-03 18:58] LABS: Influenza A QL RT-PCR Negative (Negative); Influenza B QL RT-PCR Negative (Negative); RSV RNA, RT-PCR Negative (Negative); SARS-CoV-2 RNA PCR Negative (Negative)
--- NOTE | 2023-05-03 19:31 | PC.NURSE ---
This RN assumed care of patient. This RN took patient report from CJ Blankenship.
[2023-05-03 20:37] LABS: Troponin I 0.795 ng/mL (0.000-0.034)
--- NOTE | 2023-05-03 21:05 | PM.IMHP ---
H&P: HPI History of Present Illness Date/Time: 05/03/23 21:05 Chief Complaint: patient brought to the ER for evaluation by family for evaluation of his chest pain Narrative: Our patient is a very pleasant 82 years old gentleman who appears much younger than his stated age. He is complaining of chest pain which is going on for the last 2 days. Chest pain intensity 4 to 5/10 with ambulation and functioning movements and gets relieved at rest. He did not tell his family until today when it got worse to intensity 6 to 8/10 located in the anterior chest radiating to the back and left upper arm. No association with any palpitations or sweating. Patient was brought to the ER for evaluation by family,, workup was done initial EKG shows diffuse ischemia with ST T wave changes. STEMI alert was called and the registration representative interventional radiologist reviewed the EKG and did not feel the need for immediate cardiac catheterization. Subsequent 2 EKGs in the ER showed some improvement in ST T-wave changes. Patient's 1st troponin was elevated at 0.059, and the repeat one had a big jump to 0.795. I immediately reached out to non head chef, Dr. Cohen, who is on-call. He was also called by ED physician earlier so he knew about the case. He recommended starting IV heparin drip, in addition to aspirin statin and nitroglycerin. Patient's chest pain has now improved with the intensity 1 to 2/10. He is being admitted to IMU for tele monitoring, medical management and further Cardiology evaluation and workup. He also has a history of lower GI bleeding and has a colonoscopy scheduled on 05/06/2026 for which he was advised by GI to stay off of oral Lasix, iron and statin. He also has findings consistent with congestive changes hence he has been restarted on statin and IV Lasix during this hospital admission. Review of Systems Review of Systems: he denies any fever rigor chills nausea vomiting dizziness loss of consciousness or any abdominal pain All systems reviewed & are unremarkable except as noted in HPI and below PMFSH Past Medical History Medical History COVID-19 HTN (hypertension) with goal to be determined Hyperlipidemia Iron deficiency anemia Nicotine dependence Syncope and collapse Surgical History Surgical History Hx of CABG Family History Family History Father Motor vehicle accident Social History Social History Smoking status: Former smoker Tobacco type: cigarettes Smoking end date: 08/11/14 Alcohol intake: former Substance use: never Substance use type: does not use Lack of Transportation: No Lack of Food: Never True Current Housing: I Have Housing Concerned About Future Housing: No Difficulty Paying Gas/Electric Bills: No Difficulty Paying for Meds: No Currently Unemployed: No Education: Never Attended/Kindergarten Only Difficulty w/ Childcare or Family Care: No Living arrangements: with family Gender identity (if verbalized by the patient): Male Spiritual care concerns: No Meds Home Medications and Allergies Home Medications Medication Instructions Recorded Confirmed Type blood sugar diagnostic #100 ea 11/12/21 04/24/23 Rx lancets (OneTouch UltraSoft #100 ea 11/12/21 04/24/23 Rx Lancets) nitroglycerin 0.4 mg sublingual 0.4 mg sublingual Q5M PRN Chest 12/06/22 04/24/23 History tablet Pain furosemide 20 mg tablet 20 mg PO DAILY #90 tabs 02/12/23 04/24/23 Rx metformin 500 mg tablet 500 mg PO BID #180 tabs 02/12/23 04/24/23 Rx atorvastatin 20 mg tablet 20 mg PO DAILY #90 tabs 02/14/23 04/24/23 Rx ferrous sulfate 324 mg (65 mg 324 mg PO BID #180 tabs 02/14/23 04/24/23 Rx iron) tablet,delayed release glimepiride 1 mg tablet 1 mg PO QAM #90 tab
--- NOTE | 2023-05-03 23:08 | PC.NURSE ---
This RN attempted to call report at [phone] to CJ Suresh and was unsuccessful.
[2023-05-04] VITALS (25 sets, daily range): BP systolic 120–147; BP diastolic 46–65; PULSE 79–114; RESP 18–22; TEMP 35.6–36.8; O2SAT 93–99
--- NOTE | 2023-05-04 02:00 | ADMGEN ---
This patient, Luis Rose, was admitted to IMU Room 210-01 on 05/03/23 at 2330. Patient/family oriented to hospital policies and general routines including ID bracelet, bed and alarms, visiting hours, pain management, procedures, bathroom and other care routines, personal items, smoking policy, room service/diet, and visiting hours. H&P obtained from past medical history and with the use of the speech language pathologist prn. Information on how to activate the Rapid Response Team has been discussed. Patient/Family are encouraged to report perceived risks to care and to ask questions if they do not understand what they are told or what they should do.
[2023-05-04] MEDS: ALBUTEROL SULFATE NEB 2.5 MG/3 ML INH INHALATION ×4 (02:29→20:13)
[2023-05-04 05:02] LABS: Basophils Absolute Auto 0.1 K/mm3 (0.0-0.1); Basophils Percent Auto 0.5 % (0.2-1.2); Eosinophils Absolute Auto 0.1 K/mm3 (0-0.3); Eosinophils Percent Auto 1.4 % (0-4.4); Hematocrit 25.3 % (42.0-52.0); Hemoglobin 7.2 g/dL (14.0-18.0); Immature Granulocyte Absolute 0.03 K/mm3 (0.00-0.031); Immature Granulocyte Percent A 0.3 % (0-0.5); Lymphocytes Absolute Auto 1.05 K/mm3 (0.9-3.2); Lymphocytes Percent Auto 11.4 % (18.3-44.2); Mean Corpuscular HGB Conc 28.5 g/dl (32-36); Mean Corpuscular Hemoglobin 22.7 pg (26-34); Mean Corpuscular Volume 79.8 fl (80-100); Mean Platelet Volume 11.3 fl (7.4-10.4); Monocytes Absolute Auto 1.1 K/mm3 (0.1-0.6); Neutrophils Absolute Auto 6.9 K/mm3 (1.3-6.7); Neutrophils Percent Auto 74.4 % (45.5-73.1); Platelet Count Result 203 k/mm3 (150-375); Red Blood Count 3.17 M/mm3 (4.6-6.20); Red Cell Distribution Width 16.2 % (11.5-14.5); White Blood Count 9.3 K/mm3 (4.5-10.0)
[2023-05-04 05:12] LABS: Anion Gap 7 mmol/L (8-16); Blood Urea Nitrogen 21 mg/dL (9-20); Calcium 8.6 mg/dL (8.4-10.2); Carbon Dioxide 27 mmol/L (22-30); Chloride 101 mmol/L (98-107); Estimated CRCL calculation 41 ml/min; Estimated Glomerular Filt Rate > 60; Glucose 122 mg/dL (65-110); Magnesium 2.3 mg/dL (1.6-2.3); Potassium 3.8 mmol/L (3.4-5.0); Sodium 135 mmol/L (137-145)
[2023-05-04 05:25] LABS: Hypochromasia 2+ (NORMAL); Platelet Estimate Adequate (Adequate); Schistocytes None Seen (NORMAL)
[2023-05-04] MEDS: NITROGLYCERIN SL 0.4 MG TABLET SUBLINGUAL ×2 (07:57→08:02)
--- NOTE | 2023-05-04 08:06 | ECG_ITS ---
Measurements Intervals [place] Rate: 109 P: [place]: 0 QRS: 18 QRSD: 92 T: 135 QT: 358 QTc: 484 Interpretive Statements SINUS TACHYCARDIA FREQUENT VENTRICULAR PREMATURE COMPLEXES ST-T WAVE ABNORMALITY IN ANTEROLAT/HIGH LAT LEADS- CONSIDER ISCHEMIA BASELINE ARTIFACT- V3 ABNORMAL ECG COMPARED TO ECG 05/03/2023 18:49:08 NO SIGNIFICANT CHANGES Electronically Signed On 05-04-2023 11:22:56 CDT by Corky Arevalo D.O.
[2023-05-04] MEDS: ASPIRIN 81 MG CHEWABLE TABLET PO (08:23)
[2023-05-04] MEDS: METOPROLOL SUCCINATE EXT REL 50 MG TABCR PO (08:23)
[2023-05-04] MEDS: ATORVASTATIN 20 MG TABLET PO (08:24)
[2023-05-04] MEDS: hydrALAZINE HCL 50 MG TABLET PO ×3 (08:24→18:15)
[2023-05-04] MEDS: NITROGLYCERIN OINTMENT 1 INCH DOSE TRANSDERM ×4 (08:32→23:32)
[2023-05-04] MEDS: FUROSEMIDE INJ 40 MG/4 ML VIAL IV PUSH (08:33)
[2023-05-04] MEDS: FERROUS SULFATE 325 MG TABLET DR PO ×2 (11:20→18:15)
--- NOTE | 2023-05-04 15:41 | PM.IMPN ---
Progress Note: A&P Assessment and Plan (1) NSTEMI (non-ST elevated myocardial infarction): Code(s): I21.4 - Non-ST elevation (NSTEMI) myocardial infarction Status: Acute Assessment and Plan: Appreciate cardiology consultation, pending Aspirin given, hold off on heparin due to possible GI bleed (2) Hypertension: Code(s): I10 - Essential (primary) hypertension Status: Acute Assessment and Plan: Blood pressure reviewed 05/04 (3) Diastolic dysfunction: Code(s): I51.89 - Other ill-defined heart diseases Status: Acute (4) Chronic kidney disease: Qualifiers: Chronic kidney disease stage: stage 3 (moderate) Qualified Code(s): N18.3 - Chronic kidney disease, stage 3 (moderate) Code(s): N18.9 - Chronic kidney disease, unspecified Status: Acute Assessment and Plan: Appears to be at baseline, monitor (5) Hyperlipemia: Qualifiers: Hyperlipidemia type: pure hypercholesterolemia Qualified Code(s): E78.00 - Pure hypercholesterolemia, unspecified Code(s): E78.5 - Hyperlipidemia, unspecified Status: Chronic Assessment and Plan: Continue Lipitor (6) Iron deficiency anemia: Qualifiers: Iron deficiency anemia type: chronic blood loss Qualified Code(s): D50.0 - Iron deficiency anemia secondary to blood loss (chronic) Code(s): D50.9 - Iron deficiency anemia, unspecified Status: Acute Assessment and Plan: Appreciate GI consultation, pending (7) Diabetes type 2, controlled: Qualifiers: 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: without group home use Diabetes mellitus complication status: with unspecified complications Qualified Code(s): E11.8 - Type 2 diabetes mellitus with unspecified complications Code(s): E11.9 - Type 2 diabetes mellitus without complications Status: Acute Assessment and Plan: Blood glucose reviewed 05/04, stable Check A1c, Accu-Cheks (8) Coronary arteriosclerosis in [place] artery: Code(s): I25.10 - Atherosclerotic heart disease of [place] coronary artery without angina pectoris Status: Acute (9) Hemorrhage of rectum and anus: Code(s): K62.5 - Hemorrhage of anus and rectum Status: Acute Plan DVT prophylaxis with SCDs GI prophylaxis not indicated Code status full code Subjective Date/time seen: 05/04/23 15:41 Interval history: 82-year-old male with significant cardiac history and nicotine dependence as well as iron deficiency anemia due to recurrent GI bleeds is presenting with chest pain. Had an episode of chest pain, relieved after 2 nitro. Now no chest pain or shortness of breath. No nausea, vomiting or diarrhea. No fevers or chills. Review of Systems Review of Systems: 12 point review of systems was assessed and was negative except as noted in the HPI Exam Narrative: General: No acute distress, alert and oriented per baseline HEENT: Atraumatic, normocephalic, mucous membranes moist CV: Regular rate and rhythm, S1, S2 Lungs: Clear to auscultation bilaterally, no rales or crackles noted, no wheezes, good air entry Abdomen: Soft, nontender, nondistended Extremities: Normal to inspection Skin: No rashes noted, no lesions or wounds seen Psych: Euthymic, normal affect Objective Data Vital Signs Vital Signs: Vital Signs - 24 hr 05/03/23 16:32 05/03/23 16:57 05/03/23 16:58 Temperature 98.1 F Pulse Rate 108 H Respiratory Rate 17 Blood Pressure 147/59 H Pulse Oximetry 98 89 L 92 Oxygen Delivery Room Air Room Air Nasal Cannula Oxygen Flow Rate 2 05/03/23 17:07 05/03/23 16:42 05/03/23 16:43 Temperature Pulse Rate 111 H 118 H 117 H Respiratory Rate 26 H 29 H Blood Pressure 155/69 H Pulse Oximetry 95 94 Oxygen Delivery Oxygen Flow Rate 05/03/23 16:45 05/03/23 17:00 05/03/23 17:01 Temperature Pulse Rate 117 H 12
--- NOTE | 2023-05-04 17:11 | PM.CNCAR ---
Assessment and Plan Assessment and plan (1) NSTEMI (non-ST elevated myocardial infarction): Code(s): I21.4 - Non-ST elevation (NSTEMI) myocardial infarction Status: Acute Assessment and Plan: Patient presents with progressive exertional dyspnea, fatigue and chest pain significant elevated troponin ischemic ECG changes consistent with non ST elevation myocardial infarction. Patient has remote history of CABG with multiple comorbidities. Patient is currently pain-free responsive to nitroglycerin. He has not been started on systemic anticoagulation due to progressive anemia for which she was scheduled as an outpatient for colonoscopy for further evaluation. He was started on aspirin 81 mg daily from the ER, however, he was not on anti-platelet therapy as an outpatient due to recurrent bleeding secondary to AVMs and need for blood transfusions. Management is severely limited in this regard. Patient is not a candidate for invasive angiography as he would not be expected to tolerate antiplatelet therapy or systemic anticoagulation for any meaningful period of time particularly of intervention required. Patient is at high risk for complications including , CHF, ventricular arrhythmia. Options are limited. Conservative medical management advised and appears to be the most reasonable approach at this time. Patient's daughter verbalized understanding of the patient is in agreement. Continue telemetry. Repeat 2D echocardiogram to assess LV function, wall motion abnormalities, valve pathology pulmonary pressures. Continue to trend troponin. If H&H falls further he may require transfusion. No doubt underlying CAD and ischemia meet worse due to severe anemia. All questions answered the patient and his daughter satisfaction. Explained in great detail this is a very complicated clinical circumstance in which the risks of recommended invasive angiography are unfortunately but clearly outweighed by his comorbidities particularly severe anemia which has been progressive due to concern for ongoing bleeding. Very lengthy discussion held with patient and his daughter with regards to his severe multiple comorbidities with limited options for intervention. Patient currently is a full code, conservative medical management appropriate. (2) CHF (congestive heart failure): Qualifiers: Heart failure type: diastolic Heart failure chronicity: acute on chronic Qualified Code(s): I50.33 - Acute on chronic diastolic (congestive) heart failure Code(s): I50.9 - Heart failure, unspecified Status: Acute Assessment and Plan: Patient presents in acute decompensated heart failure with previously documented preserved ejection fraction while off diuretic therapy. Continue IV Lasix 40 mg IV daily. He is near euvolemia at this time. May be able to change to oral Lasix 40 mg being tomorrow. Monitor renal function electrolytes closely to avoid intravascular volume depletion and acute kidney injury. (3) Coronary arteriosclerosis in [place] artery: Code(s): I25.10 - Atherosclerotic heart disease of [place] coronary artery without angina pectoris Status: Acute Assessment and Plan: As above. History of remote CABG. Aggressive medical therapy including atorvastatin 20 mg daily, Toprol XL 50 mg daily. Check lipid panel. Repeat ECG in a.m.. (4) Iron deficiency anemia: Qualifiers: Iron deficiency anemia type: chronic blood loss Qualified Code(s): D50.0 - Iron deficiency anemia secondary to blood loss (chronic) Code(s): D50.9 - Iron deficiency anemia, unspecified Status: Acute Assessment and Plan: Severe anemia, progressive concerning for GI blood loss with history of documented AVM for which she was not a candidate for antiplatelet therapy in the past. Recommend consultation with Gastroenterology. (5) Aortic stenosis: Qualifiers: Cardiac valve disease etiology: nonrheumatic Quali
[2023-05-05] VITALS (32 sets, daily range): BP systolic 111–144; BP diastolic 41–68; PULSE 70–118; RESP 16–20; TEMP 36.3–36.7; O2SAT 93–100
[2023-05-05] MEDS: ALBUTEROL SULFATE NEB 2.5 MG/3 ML INH INHALATION ×4 (01:51→20:24)
--- NOTE | 2023-05-05 02:31 | ECG_ITS ---
Measurements Intervals [place] Rate: 112 P: 4 SC: 171 QRS: 11 QRSD: 100 T: 184 QT: 284 QTc: 388 Interpretive Statements SINUS TACHYCARDIA INCOMPLETE RIGHT BUNDLE BRANCH BLOCK VENTRICULAR TRIGEMINY ST-T WAVE ABNORMALITY IN ANTEROLAT/HIGH LAT LEADS- CONSIDER ISCHEMIA BASELINE ARTIFACT- II, III ABNORMAL ECG COMPARED TO ECG 05/04/2023 08:09:45 NO SIGNIFICANT CHANGES Electronically Signed On 05-05-2023 6:35:59 CDT by Corky Arevalo D.O.
[2023-05-05] MEDS: MORPHINE SULFATE (*CRX) 2 MG/ML INJ IV PUSH (02:38)
[2023-05-05] MEDS: NITROGLYCERIN SL 0.4 MG TABLET SUBLINGUAL ×2 (02:39→08:46)
--- NOTE | 2023-05-05 03:51 | PC.NURSE ---
05/05/23 0226-Pt's night monitor showing worsening ST depression. Pt assessed and states that his pain is a 3/10 on the pain scale, describing pain as left sided chest pressure, aching. 0236-Stat EKG obtained. 0238-Pt rating pain a 7/10 on the pain scale, continuing to describe left sided chest pain as a sharp, aching, pressure with feelings that he is suffocating. Dr. Chiang notified and updated with Pt's condition. NTG SL and morphine 2mg IV given. 0244-Pt rating pain as a 0/10 on the pain scale, stating that his pain is completely gone. Dr. Chiang at bedside to assess Pt and speak to Pt and Pt's daughters who are at bedside.
[2023-05-05 05:08] LABS: Basophils Absolute Auto 0.1 K/mm3 (0.0-0.1); Eosinophils Absolute Auto 0.2 K/mm3 (0-0.3); Eosinophils Percent Auto 2.4 % (0-4.4); Hematocrit 21.7 % (42.0-52.0); Immature Granulocyte Absolute 0.01 K/mm3 (0.00-0.031); Immature Granulocyte Percent A 0.2 % (0-0.5); Lymphocytes Absolute Auto 0.61 K/mm3 (0.9-3.2); Lymphocytes Percent Auto 9.9 % (18.3-44.2); Mean Corpuscular Hemoglobin 22.4 pg (26-34); Mean Corpuscular Volume 77.2 fl (80-100); Mean Platelet Volume 10.8 fl (7.4-10.4); Monocytes Absolute Auto 0.7 K/mm3 (0.1-0.6); Neutrophils Absolute Auto 4.6 K/mm3 (1.3-6.7); Neutrophils Percent Auto 74.5 % (45.5-73.1); Nucleated Red Blood Cells Perc 0.3 % (0.0-0.2); Platelet Count Result 213 k/mm3 (150-375); Red Blood Count 2.81 M/mm3 (4.6-6.20); Red Cell Distribution Width 15.8 % (11.5-14.5); White Blood Count 6.2 K/mm3 (4.5-10.0)
[2023-05-05 05:19] LABS: Anion Gap 7 mmol/L (8-16); Blood Urea Nitrogen 21 mg/dL (9-20); Calcium 8.3 mg/dL (8.4-10.2); Carbon Dioxide 27 mmol/L (22-30); Chloride 99 mmol/L (98-107); Estimated CRCL calculation 41 ml/min; Estimated Glomerular Filt Rate > 60; Glucose 154 mg/dL (65-110); Potassium 3.9 mmol/L (3.4-5.0); Sodium 133 mmol/L (137-145)
[2023-05-05 05:23] LABS: Magnesium 2.1 mg/dL (1.6-2.3); Phosphorus 3.7 mg/dL (2.5-4.5)
[2023-05-05 05:40] LABS: Hemoglobin 6.3 g/dL (14.0-18.0)
[2023-05-05 05:41] LABS: Platelet Estimate Adequate (Adequate)
[2023-05-05 05:43] LABS: Anisocytosis 1+ (NORMAL); Hypochromasia 2+ (NORMAL); Schistocytes None Seen (NORMAL)
[2023-05-05] MEDS: NITROGLYCERIN OINTMENT 1 INCH DOSE TRANSDERM ×3 (06:34→17:26)
--- NOTE | 2023-05-05 08:00 | ECG_ITS ---
Measurements Intervals [place] Rate: 106 P: 10 [place]: 165 QRS: 9 QRSD: 101 T: 115 QT: 353 QTc: 471 Interpretive Statements SINUS TACHYCARDIA VENTRICULAR TRIGEMINY ST-T WAVE ABNORMALITY IN ANTEROLAT/HIGH LAT LEADS- CONSIDER ISCHEMIA BASELINE ARTIFACT- AVR, AVL, AVF, V1 ABNORMAL ECG COMPARED TO ECG 05/05/2023 02:40:26 NO SIGNIFICANT CHANGES Electronically Signed On 05-05-2023 11:19:55 CDT by Corky Arevalo D.O.
--- NOTE | 2023-05-05 08:29 | WPDGICN ---
Assessment and Plan Assessment and plan (1) NSTEMI (non-ST elevated myocardial infarction): Code(s): I21.4 - Non-ST elevation (NSTEMI) myocardial infarction Status: Acute Assessment and Plan: Patient with chest pain. [place] to have non ST elevated LA. patient anemic which likely contributes to his heart disease. Plan for GI endoscopy if okay with cardiology service. Anticipate colonoscopy on Friday. Long with EGD. (2) KILLIAN (iron deficiency anemia): Code(s): D50.9 - Iron deficiency anemia, unspecified Status: Acute Assessment and Plan: Patient with recurrent microcytic anemia. Intermittent bleeding described in stools. Will plan both colonoscopy an EGD. Iron replacement will be necessary. (3) History of arteriovenous malformation (AVM): Code(s): Z87.74 - Personal history of (corrected) congenital malformations of heart and circulatory system Status: Acute Assessment and Plan: Patient gives a history of an angiodysplasia being found by endoscopy elsewhere in the past. Plan for colonoscopy in EGD to assess for recurrence. This is 1 of several potential etiologies for his iron deficiency anemia. GI Consult Note Consult date/time: 05/05/23 08:29 Reason for consult: Iron deficiency anemia. HPI: Luis Rose is a 82 year old male I am asked to see because of occult blood in stool and iron deficiency anemia. Patient initially seen by my service in 2019. found to have evidence for occult blood in stool. Patient was mildly anemic. At that time deathly ill with COVID. It was determined to defer GI endoscopy until this resolved. Patient apparently did well as an outpatient. Never followed up as an outpatient. Hemoglobin improved until recently 1 once again patient was found to have microcytic anemia. Patient determined to have iron deficiency. Recent stool Hemoccult found to be positive. Outpatient colonoscopy was arranged but patient developed chest pain over the weekend and was admitted. Patient found to have a non ST elevated LA. patient does have rather significant anemia present. Stool is confirmed to be Hemoccult positive. Patient's daughter states that patient has occasional bright red blood per rectum. Patient denies any ongoing abdominal pain. Family history is noncontributory. Review of Systems Review of Systems: Review of systems noncontributory. [facility] Past Medical History Medical History COVID-19 HTN (hypertension) with goal to be determined Hyperlipidemia Iron deficiency anemia Nicotine dependence Syncope and collapse Surgical History Surgical History Hx of CABG Family History Family History Father Motor vehicle accident Social History Social History Smoking packs per day: 0.5 Smoking cigarettes per day: 10.0 Years smoked: 12 Smoking pack-years: 6.00 Smoking status: Former smoker Tobacco type: cigarettes Second hand tobacco smoke exposure: No Smoking end date: 08/11/14 Alcohol intake: former Substance use: never Substance use type: does not use Lack of Transportation: No Lack of Food: Never True Current Housing: I Have Housing Concerned About Future Housing: No Difficulty Paying Gas/Electric Bills: No Difficulty Paying for Meds: No Currently Unemployed: No Education: Never Attended/Kindergarten Only Difficulty w/ Childcare or Family Care: No Living arrangements: with family Gender identity (if verbalized by the patient): Male Spiritual care concerns: No Meds Home Medications and Allergies Home Medications Medication Instructions Recorded Confirmed Type blood sugar diagnostic #100 ea 11/12/21 05/04/23 Rx lancets (OneTouch UltraSoft #100 ea
--- NOTE | 2023-05-05 09:43 | PM.IMPN ---
Progress Note: A&P Assessment and Plan (1) NSTEMI (non-ST elevated myocardial infarction): Code(s): I21.4 - Non-ST elevation (NSTEMI) myocardial infarction Status: Acute Assessment and Plan: Appreciate cardiology consultation, aspirin given, hold off on heparin due to possible GI bleed (2) Hemorrhage of rectum and anus: Code(s): K62.5 - Hemorrhage of anus and rectum Status: Acute Assessment and Plan: Appreciate GI consultation EGD/colonoscopy 05/06 FOBT+ (3) Diastolic dysfunction: Code(s): I51.89 - Other ill-defined heart diseases Status: Acute Assessment and Plan: Echo 05/03 with LVH with vigorous systolic function and grade 1 diastolic dysfunction, mild to moderate MR and moderate to severe AVS (4) Chronic kidney disease: Qualifiers: Chronic kidney disease stage: stage 3 (moderate) Qualified Code(s): N18.3 - Chronic kidney disease, stage 3 (moderate) Code(s): N18.9 - Chronic kidney disease, unspecified Status: Acute Assessment and Plan: Appears to be at baseline, monitor (5) Iron deficiency anemia: Qualifiers: Iron deficiency anemia type: chronic blood loss Qualified Code(s): D50.0 - Iron deficiency anemia secondary to blood loss (chronic) Code(s): D50.9 - Iron deficiency anemia, unspecified Status: Acute Assessment and Plan: Appreciate GI consultation, see above (6) Diabetes type 2, controlled: Qualifiers: Diabetes mellitus complication status: with unspecified complications 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 Qualified Code(s): E11.8 - Type 2 diabetes mellitus with unspecified complications Code(s): E11.9 - Type 2 diabetes mellitus without complications Status: Acute Assessment and Plan: Blood glucose reviewed 05/05, a1c 5.2 last month 04/02 Accu-Cheks, SSI (7) Coronary arteriosclerosis in [place] artery: Code(s): I25.10 - Atherosclerotic heart disease of [place] coronary artery without angina pectoris Status: Acute (8) Hypertension: Qualifiers: Hypertension type: secondary to endocrine disorders Qualified Code(s): I15.2 - Hypertension secondary to endocrine disorders Code(s): I10 - Essential (primary) hypertension Status: Acute Assessment and Plan: Blood pressure reviewed 05/05 (9) Hyperlipemia: Qualifiers: Hyperlipidemia type: pure hypercholesterolemia Qualified Code(s): E78.00 - Pure hypercholesterolemia, unspecified Code(s): E78.5 - Hyperlipidemia, unspecified Status: Chronic Assessment and Plan: Continue Lipitor Plan Hospice consulted. If hgb above 7 tomorrow, would like to avoid EGD/colonoscopy and go home with hospice DVT prophylaxis with SCDs GI prophylaxis not indicated Code status full code Subjective Date/time seen: 05/05/23 09:43 Interval history: 82-year-old male with significant cardiac history and nicotine dependence as well as iron deficiency anemia due to recurrent GI bleeds is presenting with chest pain. No overnight events noted. No chest pain or shortness of breath. No nausea, vomiting or diarrhea. No fevers or chills. Patient is eager to go home and is against more procedures if he can help it, willing to do EGD, no colonoscopy. Family interested in discussing home with hospice. Review of Systems Review of Systems: 12 point review of systems was assessed and was negative except as noted in the HPI Exam Narrative: General: No acute distress, alert and oriented per baseline HEENT: Atraumatic, normocephalic, mucous membranes moist CV: Regular rate and rhythm, S1, S2 Lungs: Clear to auscultation bilaterally, no rales or crackles noted, no wheezes, good air entry Abdomen: Soft, nontender, nondistended Extremities: Normal to inspection Skin: No rashes noted, no lesions or wounds
[2023-05-05] MEDS: FUROSEMIDE INJ 40 MG/4 ML VIAL IV PUSH (09:47)
[2023-05-05] MEDS: ATORVASTATIN 20 MG TABLET PO (09:47)
[2023-05-05] MEDS: SODIUM CHLORIDE 0.9% IV 250 ML 30 ML IV CONT (09:47)
[2023-05-05] MEDS: TUBING, BLOOD PLUM PUMP TUBING 1 EACH XX (09:47)
[2023-05-05] MEDS: METOPROLOL SUCCINATE EXT REL 50 MG TABCR PO (09:50)
[2023-05-05] MEDS: hydrALAZINE HCL 50 MG TABLET PO ×3 (09:50→17:26)
[2023-05-05] MEDS: FERROUS SULFATE 325 MG TABLET DR PO ×2 (12:28→17:26)
--- NOTE | 2023-05-05 13:00 | PC.NURSE ---
Dr. Lee spoke with family and patient regarding EGD and colonoscopy for 05/06. Family and pt in agreement with proceeding with the EGD, but refusing the bowl prep and colonoscopy. This RN was updated on the patient and family wishes. This RN called the GI Lab and spoke with CJ Belcher @ [phone] regarding the patient and family's wishes to not proceed with the colonoscopy only the EGD
--- NOTE | 2023-05-05 15:02 | PM.PNCARD ---
Progress Note: A&P Assessment and Plan (1) NSTEMI (non-ST elevated myocardial infarction): Code(s): I21.4 - Non-ST elevation (NSTEMI) myocardial infarction Status: Acute Assessment and Plan: Patient presents with progressive exertional dyspnea, fatigue and chest pain significant elevated troponin ischemic ECG changes consistent with non ST elevation myocardial infarction. Patient has remote history of CABG with multiple comorbidities. Patient is currently pain-free responsive to nitroglycerin. He has not been started on systemic anticoagulation due to progressive anemia for which she was scheduled as an outpatient for colonoscopy for further evaluation. He was started on aspirin 81 mg daily from the ER, however, he was not on anti-platelet therapy as an outpatient due to recurrent bleeding secondary to AVMs and need for blood transfusions. Management is severely limited in this regard. Patient is not a candidate for invasive angiography as he would not be expected to tolerate antiplatelet therapy or systemic anticoagulation for any meaningful period of time particularly of intervention required. Patient is at high risk for complications including , CHF, ventricular arrhythmia. Options are limited. Conservative medical management advised and appears to be the most reasonable approach at this time. Patient's daughter verbalized understanding of the patient is in agreement. Continue telemetry. Patient is critically ill with poor prognosis. He is not a candidate for coronary angiography or intervention given ongoing an acute GI bleed with severe anemia and drop in hemoglobin to 6.3 requiring active blood transfusion. I band is clear there is little that can be done in this regard even if bleeding is controlled with EGD and/or colonoscopy although this would stabilize him further given better chance for survival in the short term but primarily quality of life. Patient expressed great appreciation for the care he has received and understands the dire circumstances. Patient and family have not yet decided if they wish to proceed with endoscopy although I did discuss potential advantages in hopes they may be able to find a source of active bleeding and stop it. Otherwise, any procedure requiring sedation places patient at high risk for complications and they understand this. Furthermore, patient has moderate to severe aortic stenosis in addition to underlying coronary disease with remote bypass, severe bilateral carotid arterial stenosis and peripheral arterial disease. Patient is not a surgical candidate in any case and proceed with invasive angiography is contraindicated as he will not be able to tolerate dual antiplatelet therapy and or anticoagulation. I have advised and they agree comfort measures and hospice care to be considered and all adverse to keep him comfortable with the most appropriate. I explained if bleeding is stabilize this would improve his chances of survival out of the hospital otherwise worsening or progressive severe anemia will result in increasing myocardial ischemia, myocardial damage, heart failure and risk of . I spent 47 minutes in the care of this very pleasant yet critically ill gentleman including discussion with the patient, bedside examination, family discussion, chart review, medical decision-making, and documentation. (2) CHF (congestive heart failure): Qualifiers: Heart failure type: diastolic Heart failure chronicity: acute on chronic Qualified Code(s): I50.33 - Acute on chronic diastolic (congestive) heart failure Code(s): I50.9 - Heart failure, unspecified Status: Acute Assessment and Plan: Patient presents in acute decompensated heart failure with previously documented preserved ejection fraction while off diuretic therapy. Continue IV Lasix 40 mg IV daily. He is near euvolemia at this time. May be able to change to oral Lasix 40 mg being tomorrow. Monitor charanjit
[2023-05-05] MEDS: PEG (High)/E-LYTE SOLN 4,000 ML BTL 4000 ML PO (15:30)
[2023-05-05 20:21] LABS: Glucose Point of Care 179 mg/dl (65-105)
[2023-05-06] VITALS (24 sets, daily range): BP systolic 110–148; BP diastolic 43–79; PULSE 75–122; RESP 14–28; TEMP 36.2–37.1; O2SAT 94–99
[2023-05-06] MEDS: ALBUTEROL SULFATE NEB 2.5 MG/3 ML INH INHALATION ×4 (02:17→20:17)
[2023-05-06] MEDS: NITROGLYCERIN OINTMENT 1 INCH DOSE TRANSDERM ×5 (02:36→23:53)
[2023-05-06] MEDS: MORPHINE SULFATE (*CRX) 2 MG/ML INJ IV PUSH (04:06)
[2023-05-06 05:38] LABS: Basophils Absolute Auto 0.1 K/mm3 (0.0-0.1); Eosinophils Absolute Auto 0.2 K/mm3 (0-0.3); Eosinophils Percent Auto 3.1 % (0-4.4); Hemoglobin 7.8 g/dL (14.0-18.0); Immature Granulocyte Absolute 0.11 K/mm3 (0.00-0.031); Immature Granulocyte Percent A 1.4 % (0-0.5); Lymphocytes Absolute Auto 0.59 K/mm3 (0.9-3.2); Lymphocytes Percent Auto 7.5 % (18.3-44.2); Mean Corpuscular Hemoglobin 23.5 pg (26-34); Mean Corpuscular Volume 78.3 fl (80-100); Monocytes Absolute Auto 0.8 K/mm3 (0.1-0.6); Monocytes Percent Auto 10.4 % (2.6-8.5); Neutrophils Percent Auto 76.6 % (45.5-73.1); Nucleated Red Blood Cells Perc 0.3 % (0.0-0.2); Platelet Count Result 204 k/mm3 (150-375); Red Blood Count 3.32 M/mm3 (4.6-6.20); Red Cell Distribution Width 15.7 % (11.5-14.5); White Blood Count 7.9 K/mm3 (4.5-10.0)
[2023-05-06 06:45] LABS: Anion Gap 8 mmol/L (8-16); Blood Urea Nitrogen 23 mg/dL (9-20); Calcium 8.7 mg/dL (8.4-10.2); Carbon Dioxide 29 mmol/L (22-30); Chloride 98 mmol/L (98-107); Estimated CRCL calculation 43 ml/min; Estimated Glomerular Filt Rate > 60; Glucose 160 mg/dL (65-110); Potassium 3.7 mmol/L (3.4-5.0); Sodium 135 mmol/L (137-145)
--- NOTE | 2023-05-06 08:33 | PM.DS ---
DS: Discharge Diagnosis Discharge Diagnosis (1) NSTEMI (non-ST elevated myocardial infarction): Code(s): I21.4 - Non-ST elevation (NSTEMI) myocardial infarction Status: Acute Assessment and Plan: Appreciate cardiology consultation, aspirin given, hold off on heparin due to possible GI bleed (2) Hemorrhage of rectum and anus: Code(s): K62.5 - Hemorrhage of anus and rectum Status: Acute Assessment and Plan: Appreciate GI consultation EGD/colonoscopy 05/06 FOBT+ (3) Diastolic dysfunction: Code(s): I51.89 - Other ill-defined heart diseases Status: Acute Assessment and Plan: Echo 05/03 with LVH with vigorous systolic function and grade 1 diastolic dysfunction, mild to moderate MR and moderate to severe AVS (4) Chronic kidney disease: Qualifiers: Chronic kidney disease stage: stage 3 (moderate) Qualified Code(s): N18.3 - Chronic kidney disease, stage 3 (moderate) Code(s): N18.9 - Chronic kidney disease, unspecified Status: Acute Assessment and Plan: Appears to be at baseline, monitor (5) Iron deficiency anemia: Qualifiers: Iron deficiency anemia type: chronic blood loss Qualified Code(s): D50.0 - Iron deficiency anemia secondary to blood loss (chronic) Code(s): D50.9 - Iron deficiency anemia, unspecified Status: Acute Assessment and Plan: Appreciate GI consultation, see above (6) Diabetes type 2, controlled: Qualifiers: Diabetes mellitus custodial insulin use: without watermaster use Diabetes mellitus complication status: with unspecified complications Qualified Code(s): E11.8 - Type 2 diabetes mellitus with unspecified complications Code(s): E11.9 - Type 2 diabetes mellitus without complications Status: Acute Assessment and Plan: Blood glucose reviewed 05/05, a1c 5.2 last month 04/02 Accu-Cheks, SSI (7) Coronary arteriosclerosis in [place] artery: Code(s): I25.10 - Atherosclerotic heart disease of [place] coronary artery without angina pectoris Status: Acute (8) Hypertension: Qualifiers: Hypertension type: secondary to endocrine disorders Qualified Code(s): I15.2 - Hypertension secondary to endocrine disorders Code(s): I10 - Essential (primary) hypertension Status: Acute Assessment and Plan: Blood pressure reviewed 05/05 (9) Hyperlipemia: Qualifiers: Hyperlipidemia type: pure hypercholesterolemia Qualified Code(s): E78.00 - Pure hypercholesterolemia, unspecified Code(s): E78.5 - Hyperlipidemia, unspecified Status: Chronic Assessment and Plan: Continue Lipitor Plan Hospice consulted. If hgb above 7 tomorrow, would like to avoid EGD/colonoscopy and go home with hospice DVT prophylaxis with SCDs GI prophylaxis not indicated Code status full code DS: Summary Time Spent with Patient Time attestation: Total time spent providing and/or coordinating discharge services: Exam Narrative: General: No acute distress, alert and oriented per baseline HEENT: Atraumatic, normocephalic, mucous membranes moist CV: Regular rate and rhythm, S1, S2 Lungs: Clear to auscultation bilaterally, no rales or crackles noted, no wheezes, good air entry Abdomen: Soft, nontender, nondistended Extremities: Normal to inspection Skin: No rashes noted, no lesions or wounds seen Psych: Euthymic, normal affect DS: Data Data Completed and Pending Labs on day of discharge: Labs from last 24 hours 05/06/23 05/05/23 05/05/23 05:19 20:17 06:42 WBC 7.9 RBC 3.32 L Hgb 7.8 L Hct 26.0 L MCV 78.3 L MCH 23.5 L MCHC 30.0 L RDW 15.7 H Plt Count 204 MPV 11.0 H Immature Gran % (Auto) 1.4 H Neut % (Auto) 76.6 H Lymph % (Auto) 7.5 L [place] % (Auto) 10.4 H Eos % (Auto) 3.1 Baso % (Auto) 1.0 Lymph # (Auto) 0.59 L [place] # (Auto)
--- NOTE | 2023-05-06 08:55 | PC.NURSE ---
To GI Lab per [carol ], IV [ saline locked]. O2 on at 2L NC. Report given to [ CJ Belcher]. Family at bedside with patient
[2023-05-06] MEDS: LACTATED RINGERS 1,000 ML 150 ML IV CONT (09:06)
--- NOTE | 2023-05-06 09:32 | WPDANESEPPF ---
Anes - Initial Pre Proc Eval Procedure: Operation Date: 05/06/23 14:45 Proposed Procedures p Esophagogastroduodenoscopy & Colonoscopy - Simba Guerrero MD Date/Time: 05/06/23 09:32 Surgeon: Vicente Chiang MD Pre Op Diagnosis: Pleural effusion, elecated troponin, hypertension Patient Data Age: 82 Gender: M Height: 1.68 m Weight: 61.7 kg Last Vital Signs Temp 97.9 F 05/06/23 09:08 Pulse 114 H 05/06/23 09:08 Resp 20 05/06/23 09:08 BP 124/58 L 05/06/23 09:08 Pulse Ox 97 05/06/23 09:08 O2 Del Method Room Air 05/06/23 09:08 O2 Flow Rate 1 05/05/23 20:27 Allergies Allergy/AdvReac Type Severity Reaction Status Date / Time No Known Allergies Allergy Verified 05/06/23 09:05 Home Medications Medication Instructions Recorded Confirmed Type blood sugar diagnostic #100 ea 11/12/21 05/04/23 Rx lancets (OneTouch UltraSoft #100 ea 11/12/21 05/04/23 Rx Lancets) nitroglycerin 0.4 mg sublingual 0.4 mg sublingual Q5M PRN Chest 12/06/22 05/04/23 History tablet Pain furosemide 20 mg tablet 20 mg PO DAILY #90 tabs 02/12/23 05/04/23 Rx metformin 500 mg tablet 500 mg PO BID #180 tabs 02/12/23 05/04/23 Rx atorvastatin 20 mg tablet 20 mg PO DAILY #90 tabs 02/14/23 05/04/23 Rx ferrous sulfate 324 mg (65 mg 324 mg PO BID #180 tabs 02/14/23 05/04/23 Rx iron) tablet,delayed release glimepiride 1 mg tablet 1 mg PO QAM #90 tabs 02/19/23 05/04/23 Rx sodium,potassium,mag sulfates 17.5 See Rx Instructions PO .COMPLEX 04/02/23 05/04/23 Rx gram-3.13 gram-1.6 gram oral soln #354 mL (Suprep Bowel Prep Kit) metoprolol succinate 50 mg 50 mg PO DAILY #90 tabs 04/04/23 05/04/23 Rx tablet,extended release 24 hr hydralazine 50 mg tablet 50 mg PO TID 05/04/23 05/04/23 History Laboratory Tests 05/05/23 05/05/23 05/06/23 06:42 20:17 05:19 WBC 7.9 K/mm3 (4.5-10.0) RBC 3.32 L M/mm3 (4.6-6.20) Hgb 7.8 L g/dL (14.0-18.0) Hct 26.0 L % (42.0-52.0) MCV 78.3 L fl (80-100) MCH 23.5 L pg (26-34) MCHC 30.0 L g/dl (32-36) RDW 15.7 H % (11.5-14.5) Plt Count 204 k/mm3 (150-375) MPV 11.0 H fl (7.4-10.4) Immature Gran % (Auto) 1.4 H % (0-0.5) Neut % (Auto) 76.6 H % (45.5-73.1) Lymph % (Auto) 7.5 L % (18.3-44.2) [place] % (Auto) 10.4 H % (2.6-8.5) Eos % (Auto) 3.1 % (0-4.4) Baso % (Auto) 1.0 % (0.2-1.2) Lymph # (Auto) 0.59 L K/mm3 (0.9-3.2) [place] # (Auto) 0.8 H K/mm3 (0.1-0.6) Eos # (Auto) 0.2 K/mm3 (0-0.3) Baso # (Auto) 0.1 K/mm3 (0.0-0.1) Abs Immat Gran (auto) 0.11 H K/mm3 (0.00-0.031) Absolute Neuts (auto) 6.0 K/mm3 (1.3-6.7) Absolute Nucleated RBC 0.0 K/mm3 (0.0-0.012) Nucleated RBC % 0.3 H % (0.0-0.2) Sodium 135 L mmol/L (137-145) Potassium 3.7 mmol/L (3.4-5.0) Chloride 98 mmol/L (98-107) Carbon Dioxide 29 mmol/L (22-30) Anion Gap 8 mmol/L (8-16) BUN 23 H mg/dL (9-20) Creatinine 1.00 mg/dL (0.7-1.3) Estim Creat Clear Calc 43 ml/min Estimated GFR > 60 (59 - ) Glucose 160 H mg/dL (65-110) POC Capillary Glucose 179 H mg/dl (65-105) Calcium 8.7 mg/dL (8.4-10.2) Blood Type O Positive Antibody Screen Negative Crossmatch See Detail Patient hx anesthesia problems: none Family hx anesthesia problems: none Results Review: All pre-operative results and documents have been reviewed as part of the pre-operative evaluation. [facility] Past Medical History Medical History COVID-19 HTN (hypertension) with goal to be determined Hyperlipidemia Iron deficiency anemia Nicotine dependence Syncope and collapse
--- NOTE | 2023-05-06 11:04 | SUR.OPER ---
EGD end 1058 COLONOSCOPY START 1104
--- NOTE | 2023-05-06 11:37 | SUR.PHASEII ---
report called to [facility]
[2023-05-06] MEDS: FERROUS SULFATE 325 MG TABLET DR PO ×2 (12:27→16:37)
[2023-05-06] MEDS: METOPROLOL SUCCINATE EXT REL 50 MG TABCR PO (12:27)
[2023-05-06] MEDS: ATORVASTATIN 20 MG TABLET PO (12:27)
[2023-05-06] MEDS: FUROSEMIDE INJ 40 MG/4 ML VIAL IV PUSH (12:27)
[2023-05-06] MEDS: hydrALAZINE HCL 50 MG TABLET PO ×2 (12:28→16:37)
--- NOTE | 2023-05-06 13:11 | PC.NURSE ---
Addendum entered by Berta Hood RN 05/06/23 13:12: Pt returned at 1145. Report received from CJ Gao @ [id number] Original Note: Returned from GI Lab. Report received from [ Sima, @ CJ @ 0204].
--- NOTE | 2023-05-06 15:00 | PM.IMPN ---
Progress Note: A&P Assessment and Plan (1) NSTEMI (non-ST elevated myocardial infarction): Code(s): I21.4 - Non-ST elevation (NSTEMI) myocardial infarction Status: Acute Assessment and Plan: Appreciate cardiology consultation, aspirin given, hold off on heparin due to Gi bleed comfort measures opted by family (2) Hemorrhage of rectum and anus: Code(s): K62.5 - Hemorrhage of anus and rectum Status: Acute Assessment and Plan: Appreciate GI consultation EGD/colonoscopy 05/06, cauterized AVM FOBT+ comfort care enacted (3) Diastolic dysfunction: Code(s): I51.89 - Other ill-defined heart diseases Status: Acute Assessment and Plan: Echo 05/03 with LVH with vigorous systolic function and grade 1 diastolic dysfunction, mild to moderate MR and moderate to severe AVS (4) Chronic kidney disease: Qualifiers: Chronic kidney disease stage: stage 3 (moderate) Qualified Code(s): N18.3 - Chronic kidney disease, stage 3 (moderate) Code(s): N18.9 - Chronic kidney disease, unspecified Status: Acute Assessment and Plan: Appears to be at baseline, monitor (5) Iron deficiency anemia: Qualifiers: Iron deficiency anemia type: chronic blood loss Qualified Code(s): D50.0 - Iron deficiency anemia secondary to blood loss (chronic) Code(s): D50.9 - Iron deficiency anemia, unspecified Status: Acute Assessment and Plan: Appreciate GI consultation, see above (6) Diabetes type 2, controlled: Qualifiers: Diabetes mellitus intermediate project manager insulin use: without intermediate project manager use Diabetes mellitus complication status: with unspecified complications Qualified Code(s): E11.8 - Type 2 diabetes mellitus with unspecified complications Code(s): E11.9 - Type 2 diabetes mellitus without complications Status: Acute Assessment and Plan: Blood glucose reviewed 05/06, a1c 5.2 last month 04/02 Accu-Cheks, SSI (7) Coronary arteriosclerosis in [place] artery: Code(s): I25.10 - Atherosclerotic heart disease of [place] coronary artery without angina pectoris Status: Acute (8) Hypertension: Qualifiers: Hypertension type: secondary to endocrine disorders Qualified Code(s): I15.2 - Hypertension secondary to endocrine disorders Code(s): I10 - Essential (primary) hypertension Status: Acute Assessment and Plan: Blood pressure reviewed 05/06 (9) Hyperlipemia: Qualifiers: Hyperlipidemia type: pure hypercholesterolemia Qualified Code(s): E78.00 - Pure hypercholesterolemia, unspecified Code(s): E78.5 - Hyperlipidemia, unspecified Status: Chronic Assessment and Plan: Continue Lipitor Plan Hospice consulted. Plan is home with hospice 05/07 DVT prophylaxis with SCDs GI prophylaxis not indicated Code status full code Subjective Date/time seen: 05/06/23 15:00 Interval history: 82-year-old male with significant cardiac history and nicotine dependence as well as iron deficiency anemia due to recurrent GI bleeds is presenting with chest pain. No overnight events noted. No chest pain or shortness of breath. No nausea, vomiting or diarrhea. No fevers or chills. Patient is eager to go home and is against more procedures if he can help it, willing to do EGD, no colonoscopy. Family interested in discussing home with hospice. Review of Systems Review of Systems: 12 point review of systems was assessed and was negative except as noted in the HPI Exam Narrative: General: No acute distress, alert and oriented per baseline HEENT: Atraumatic, normocephalic, mucous membranes moist CV: Regular rate and rhythm, S1, S2 Lungs: Clear to auscultation bilaterally, no rales or crackles noted, no wheezes, good air entry Abdomen: Soft, nontender, nondistended Extremities: Normal to inspection Skin: No rashes noted, no lesio
--- NOTE | 2023-05-06 17:29 | PC.NURSE ---
This patient, Luis Rose, was transferred to [[id number] ] on 05/06/23 at 1725. Personal belongings sent with patient. Report given to [CJ Quevedo @ 5800 ]. Appropriate documentation sent with patient. Family at bedside
--- NOTE | 2023-05-06 21:07 | PC.NURSE ---
Pt's family requested a school release for the granddaughter that is coming in from [place]. Placed an excuse in d/c stand alone forms.
[2023-05-07] VITALS (9 sets, daily range): BP systolic 104–141; BP diastolic 45–61; PULSE 84–110; RESP 12–20; TEMP 36.8–37.2; O2SAT 94–99
[2023-05-07] MEDS: ALBUTEROL SULFATE NEB 2.5 MG/3 ML INH INHALATION ×3 (02:42→13:38)
[2023-05-07] MEDS: NITROGLYCERIN OINTMENT 1 INCH DOSE TRANSDERM ×2 (06:29→13:31)
--- NOTE | 2023-05-07 07:53 | WPDGIPROGNO ---
Progress Note: A&P Assessment and Plan (1) Duodenal arteriovenous malformation: Code(s): K31.819 - Angiodysplasia of stomach and duodenum without bleeding Status: Acute Assessment and Plan: duodenal AVM identified at time of endoscopy. This was cauterized with cessation of bleeding. It is possible he may have additional small-bowel lesions distally that cannot be reached by endoscope. After cautery hemoglobin appears to have stabilized perhaps improved. (2) KILLIAN (iron deficiency anemia): Code(s): D50.9 - Iron deficiency anemia, unspecified Status: Acute Assessment and Plan: patient with iron deficiency anemia. I suspect this was from chronic slow blood loss from AVMs. Patient may benefit from iron replacement. Follow-up blood count advised. No additional GI workup this time. Suggest regular diet discharge when okay with primary care service. (3) NSTEMI (non-ST elevated myocardial infarction): Code(s): I21.4 - Non-ST elevation (NSTEMI) myocardial infarction Status: Acute Assessment and Plan: I understand patient has been placed in hospice because of heart disease. Disposition per primary care and hospice doctors. Subjective Date/time seen: 05/07/23 07:53 Interval history: Patient alert comfortable this morning. He offers no complaints. Patient's daughter acts as an assistant superintendent for curriculum. Patient tolerating diet. Anxious to go home. Arrangements have been made for patient to be placed on hospice apparently. Review of Systems Review of Systems: Review of systems noncontributory. Exam Narrative: Physical exam reveals patient to be alert. Vital signs stable. HEENT exam is unremarkable. Patient is anicteric. Lungs are clear to auscultation and percussion. Heart is without murmur or extra sounds. Abdominal exam bowel sounds are present soft nontender with no organomegaly. Objective Data Vital Signs Vital Signs: Vital Signs - 24 hr 05/06/23 08:09 05/06/23 08:56 05/06/23 09:08 Temperature 98.0 F 97.9 F Pulse Rate 110 H 102 H 114 H Respiratory Rate 18 18 20 Blood Pressure 148/62 H 124/58 L Pulse Oximetry 99 97 Oxygen Delivery Nasal Cannula Oxygen Flow Rate 2 Fraction of Inspired Oxygen 05/06/23 08:00 05/06/23 08:00 05/06/23 11:28 Temperature Pulse Rate 106 H 105 H Respiratory Rate 28 H Blood Pressure 143/79 H Pulse Oximetry 97 95 Oxygen Delivery Nasal Cannula Nasal Cannula Oxygen Flow Rate 1 2 Fraction of Inspired Oxygen 05/06/23 11:37 05/06/23 12:01 05/06/23 12:27 Temperature 97.6 F Pulse Rate 107 H 113 H 110 H Respiratory Rate 19 16 Blood Pressure 139/74 138/59 L Pulse Oximetry 96 94 Oxygen Delivery Nasal Cannula Oxygen Flow Rate 2 Fraction of Inspired Oxygen 05/06/23 13:47 05/06/23 13:59 05/06/23 14:00 Temperature Pulse Rate 101 H 104 H 110 H Respiratory Rate 18 18 Blood Pressure Pulse Oximetry Oxygen Delivery Oxygen Flow Rate Fraction of Inspired Oxygen 05/06/23 16:18 05/06/23 17:35 05/06/23 20:20 Temperature 97.6 F 97.4 F L Pulse Rate 75 105 H Respiratory Rate 18 16 Blood Pressure 122/51 L 115/45 L Pulse Oximetry 98 97 95 Oxygen Delivery Nasal Cannula Oxygen Flow Rate 2 Fraction of Inspired Oxygen 05/06/23 20:21 05/06/23 20:00 05/06/23 20:30 Temperature Pulse Rate 96 96 99 Respiratory Rate 18 18 18 Blood Pressure Pulse Oximetry 95 Oxygen Delivery Nasal Cannula Oxygen Flow Rate 2 Fraction of Inspired Oxygen 05/06/23 22:00 05/07/23 02:46 05/07/23 02:46 Temperature 98.7 F Pulse Rate 99 84 Respiratory Rate 14 18 Blood Pressure 110/43 L Pulse Oximetry 96 99 Oxygen Delivery Nasal Cannula Oxygen Flow Rate 2 Fraction of Inspired Oxygen 05/07/23 02:55 05/07/23 06:00 05/07/23 07:41 Temperature 98.2 F Pulse Rate 86 87 110 H Respiratory Rate 18 12 18 Blood Pressure 104/45 L Pulse Oxime
[2023-05-07] MEDS: hydrALAZINE HCL 50 MG TABLET PO ×2 (08:57→13:35)
[2023-05-07] MEDS: FUROSEMIDE INJ 40 MG/4 ML VIAL IV PUSH (08:57)
[2023-05-07] MEDS: FERROUS SULFATE 325 MG TABLET DR PO (08:57)
[2023-05-07] MEDS: ATORVASTATIN 20 MG TABLET PO (08:57)
[2023-05-07] MEDS: METOPROLOL SUCCINATE EXT REL 50 MG TABCR PO (08:57)
--- NOTE | 2023-05-07 10:34 | WPDANESPN ---
Anes - Prog Note Post-Op Date/Time: 05/07/23 10:34 Cardiovascular status: other (anemia) Respiratory status: normal Airway patency: baseline Mental status: baseline Post-Op hydration status: normal Vital Signs: Last Vital Signs Temp 36.8 C 05/07/23 06:00 Pulse 100 05/07/23 08:57 Resp 18 05/07/23 07:49 BP 104/45 L 05/07/23 06:00 Pulse Ox 94 05/07/23 07:41 O2 Del Method Nasal Cannula 05/07/23 07:41 O2 Flow Rate 1 05/07/23 07:41 FiO2 24 05/07/23 07:41 Pain Score (VAS): 0/10 I/O: Intake & Output 05/06/23 05/07/23 05/07/23 23:59 07:59 15:59 Intake Total 440 150 240 Output Total 200 Balance 440 -50 240 Laboratory Tests 05/06/23 05:19 05/06/23 05:19 Post-procedural complaints: none Patient Feedback: Patient satisfied with anesthetic care.
--- NOTE | 2023-05-07 17:56 | PM.DS ---
DS: Admitting Diagnosis Discharge Date 05/07/23 Admitting Diagnosis Chest pain DS: Discharge Diagnosis Discharge Diagnosis (1) NSTEMI (non-ST elevated myocardial infarction): Code(s): I21.4 - Non-ST elevation (NSTEMI) myocardial infarction Status: Acute (2) Hemorrhage of rectum and anus: Code(s): K62.5 - Hemorrhage of anus and rectum Status: Acute (3) Diastolic dysfunction: Code(s): I51.89 - Other ill-defined heart diseases Status: Acute (4) Chronic kidney disease: Qualifiers: Chronic kidney disease stage: stage 3 (moderate) Qualified Code(s): N18.3 - Chronic kidney disease, stage 3 (moderate) Code(s): N18.9 - Chronic kidney disease, unspecified Status: Acute (5) Iron deficiency anemia: Qualifiers: Iron deficiency anemia type: chronic blood loss Qualified Code(s): D50.0 - Iron deficiency anemia secondary to blood loss (chronic) Code(s): D50.9 - Iron deficiency anemia, unspecified Status: Acute (6) Diabetes type 2, controlled: Qualifiers: Diabetes mellitus director long term care insulin use: without director long term care use Diabetes mellitus complication status: with unspecified complications Qualified Code(s): E11.8 - Type 2 diabetes mellitus with unspecified complications Code(s): E11.9 - Type 2 diabetes mellitus without complications Status: Acute (7) Coronary arteriosclerosis in [place] artery: Code(s): I25.10 - Atherosclerotic heart disease of [place] coronary artery without angina pectoris Status: Acute (8) Hypertension: Qualifiers: Hypertension type: secondary to endocrine disorders Qualified Code(s): I15.2 - Hypertension secondary to endocrine disorders Code(s): I10 - Essential (primary) hypertension Status: Acute (9) Hyperlipemia: Qualifiers: Hyperlipidemia type: pure hypercholesterolemia Qualified Code(s): E78.00 - Pure hypercholesterolemia, unspecified Code(s): E78.5 - Hyperlipidemia, unspecified Status: Chronic DS: Summary Hospital Course Reason for hospitalization: 82yo male with HTN and carotid stenosis here for chest pain. Please see H&P for details. Hospital Course: Patient presents with shortness of breath chest pain. EKG shows ST-T wave abnormalities diffusely. Echocardiogram showed EF of 60-65% and grade 1 diastolic dysfunction. He was not started on anticoagulation due to anemia. He was given aspirin. He is not on aspirin at home due to GI bleeding from AVMs. Cardiology felt that patient was not a candidate for invasive angiography as he would not be expected to tolerate anti-platelet therapy. Patient was having rectal bleeding and has a history of iron deficiency anemia as well as history of GI AVMs. Did undergo EGD which showed duodenal AVMs that were bleeding. These were cauterized. Colonoscopy showed internal hemorrhoids. There was stigmata of bleeding from the hemorrhoids. Patient has bilateral stenosis of the internal carotid arteries. CTA on admission showed no obvious PE but did show large bilateral pleural effusions and interstitial edema. Given his multiple medical problems, patient and family decided to proceed with hospice care. Spoke to the patient personally and he was comfortable with his decision. Patient was discharged home with hospice on 05/07/2023. Status at Discharge Cognitive/behavioral status at discharge: Stable Time Spent with Patient Time attestation: Total time spent providing and/or coordinating discharge services: 38 minutes Time spent: Greater than 30 minutes Exam Narrative: AF 98.9 141/61 101 20 96% 1L Gen - NARD Chest -clear anteriorly in the flanks. CV - RRR S1/S2 Abd - Soft, NT/ND, Positive BS Ext - No pedal edema Neuro - Alert and oriented Psych - Nml mood and affect Skin - Warm and dry Discharge Plan Discharge Attending physician on discharge: Brenda Lee
== END 2023-05-07 14:15 | disposition hospice, home (50) | DRG 280 ==
LOC: ANHED 19:25 → ANHIMU 22:36 → ANH3MEDSUR 05-06 17:22
PROVIDERS: Internal Medicine Cardiovascular Disease; Internal Medicine Gastroenterology; Admitting Provider Family Medicine; Emergency Provider Emergency Medicine; PCP Family Medicine; Visit Provider Student in an Organized Health Care Education/Training Program
PROC: 0DJ08ZZ Inspection of Upper Intestinal Tract, Via Natural or Artificial Opening Endoscopic (ICD-10-PCS; CPT 43235; principal; 2023-05-06 14:45)
DX: I21.4 Non-ST elevation (NSTEMI) myocardial infarction (principal); I50.33 Acute on chronic diastolic (congestive) heart failure; K31.811 Angiodysplasia of stomach and duodenum with bleeding; I13.0 Hypertensive heart and chronic kidney disease with heart failure and stage 1 through stage 4 chronic kidney disease, or unspecified chronic kidney disease; J90 Pleural effusion, not elsewhere classified; D50.0 Iron deficiency anemia secondary to blood loss (chronic); I25.10 Atherosclerotic heart disease of native coronary artery without angina pectoris; I65.23 Occlusion and stenosis of bilateral carotid arteries; I34.89 Other nonrheumatic mitral valve disorders; I35.0 Nonrheumatic aortic (valve) stenosis; I73.9 Peripheral vascular disease, unspecified; N18.30 Chronic kidney disease, stage 3 unspecified; E11.22 Type 2 diabetes mellitus with diabetic chronic kidney disease; E78.5 Hyperlipidemia, unspecified; K64.8 Other hemorrhoids; H91.93 Unspecified hearing loss, bilateral; Z20.822 Contact with and (suspected) exposure to COVID-19; Z87.891 Personal history of nicotine dependence; Z95.1 Presence of aortocoronary bypass graft; Z51.5 Encounter for palliative care
CPT/HCPCS: 36415; 36430; 71275; 80048; 80053; 82948; 83735; 83880; 84100; 84484; 85025; 86850; 86900; 86901; 86923; 87637; 93005; 93306; 94640; 96374; 96375; 99285; A9270; J1940; J2001; J2270; J2704; J7050; J7120; P9016; Q9967